=== PATIENT | male | born 1970 ===

== ENCOUNTER 2017-05-24 18:24 | Inpatient (IN) | payer OTHER ==
[2017-05-24] MEDS ORDERED: Sodium Chloride 0.9% 500 ML IV STA (18:44)
--- NOTE | 2017-05-24 18:50 | ED PDOC ---
Arrival/HPI - General Chief Complaint: Anxiety Time Seen by Provider: 05/24/17 18:26 Historian: Patient, Spouse - History of Present Illness Narrative History of Present Illness (Text): 46yoM, history of cardiac arrest in the past?, alcohol 1/5 of rum daily and last drank yesterday and wants to stop per patient and . now with chest pain generalized, but no sob/abd pain/numbness/tingling/loss of limb function/ dysuria/thoughts to harm self or others or hallucinations/travel/prior blood clots/prior cancer history. 05/24/17 18:50 Time/Duration: Other (1 day) Symptom Onset: Gradual Symptom Course: Unchanged Quality: Aching Severity Level: 4 Activities at Onset: Rest Context: Sitting Past Medical History - Provider Review Nursing Documentation Reviewed: Yes - Travel History Have you recently traveled outside [place] w/in the past 3 mons?: No - Infectious Disease Hx of Infectious Diseases: None - Psychiatric Hx Depression: Yes Hx Substance Use: No - Anesthesia Hx Anesthesia: No Family/Social History - Physician Review Nursing Documentation Reviewed: Yes Family/Social History: No Known Family HX Smoking Status: Unknown If Ever Smoked Hx Alcohol Use: Yes Frequency of alcohol use: Daily Hx Substance Use: No Allergies/Home Meds Allergies/Adverse Reactions: Allergies No Known Allergies Allergy (Verified 05/24/17 18:36) Home Medications: Home Meds Medication Instructions Recorded Confirmed Ziprasidone [Geodon] 40 mg PO DAILY 05/24/17 05/24/17 Review of Systems - Review of Systems Constitutional: Normal Eyes: Normal ENT: Normal Respiratory: Normal Cardiovascular: Chest Pain Gastrointestinal: Normal Genitourinary Male: Normal Musculoskeletal: Normal Skin: Normal Neurological: Normal Endocrine: Normal Hemo/Lymphatic: Normal Psychiatric: Anxiety Physical Exam Vital Signs Reviewed: Yes Vital Signs Temp Pulse Resp BP Pulse Ox 05/24/17 20:22 99 H 180/103 H 05/24/17 18:38 98.2 F 114 H 20 195/130 H 96 Temperature: Afebrile Blood Pressure: Hypertensive Pulse: Tachycardic Respiratory Rate: Normal Appearance: Positive for: Other (anxious) Pain Distress: None Mental Status: Positive for: Alert and Oriented X 3 - Systems Exam Head: Present: Atraumatic, Normocephalic Pupils: Present: PERRL Extroacular Muscles: Present: EOMI Conjunctiva: Present: Normal Ears: Present: Normal Mouth: Present: Moist Mucous Membranes Pharnyx: Present: Normal Nose (External): Present: Atraumatic Nose (Internal): Present: Normal Inspection Neck: Present: Normal Range of Motion Respiratory/Chest: Present: Clear to Auscultation, Good Air Exchange Cardiovascular: Present: Regular Rate and Rhythm Abdomen: No: Tenderness, Distention, Normal Bowel Sounds, Peritoneal Signs, Rebound, Guarding, McBurney's Point Tender, Rovsing's Sign Present, Hernias, Feeding Tubes, Ostomy Tubes, Mass/Organomegaly, Scars, Other Back: Present: Normal Inspection Upper Extremity: Present: Normal Inspection Lower Extremity: Present: Normal Inspection Neurological: Present: GCS=15, CN II-XII Intact, Speech Normal, Motor Func Grossly Intact Skin: Present: Warm, Normal Color Psychiatric: Present: Alert, Oriented x 3, Normal Insight, Normal Concentration , Other (anxious, mild bl hand tremor) Medical Decision Making ED Course and Treatment: 46yoM, history of cardiac arrest in the past?, alcohol 1/5 of rum daily and last drank yesterday and wants to stop per patient and . now with chest pain generalized, but no sob/abd pain/numbness/tingling/loss of limb function/ dysuria/thoughts to harm self or others or hallucinations/travel/prior blood clots/prior cancer history. 05/24/17 18:48 05/24/17 19:51 d/w Dr. Manzo who accepted pt for alcohol withdrawal, clonidine 0.1mg, librium 50mg, banana bag and can admit to telemetry. 05/24/17 20:56 d/w Dr. Manzo and can put admit in and he will fu cxr. - Lab Interpretations Lab Results: 05/24/17 18:45 05/24/17 18:45 Lab Results 05/24/17 19:45: Magnesium 1.4 L, Triglycerides 97, Cholesterol 198, LDL Cholesterol Direct 138 H, HDL Cholesterol 60, Amylase 56, Lipase 107 05/24/17 19:30: Urine Opiates Screen Negative, Urine Methadone Screen Negative, Ur Barbiturates Screen Negative, Ur Phencyclidine Scrn Negative, Ur Amphetamines Screen Negative, U Benzodiazepines Scrn Negative, U Oth Cocaine Metabols Negative, U Cannabinoids Screen Negative 05/24/17 19:30: Urine Color Yellow, Urine Appearance Sl cloudy, Urine pH 7.5, Ur Specific [place] 1.025, Urine Protein 100 H, Urine Glucose (UA) Negative, Urine Ketones Negative, Urine Blood Negative, Urine Nitrate Negative, Urine Bilirubin Negative, Urine Urobilinogen 0.2, Ur Leukocyte Esterase Negative, Urine RBC Negative, Urine WBC 1 - 3, Ur Epithelial Cells 3 - 4, Urine Bacteria Few 05/24/17 18:45: Alcohol, Quantitative < 10 05/24/17 18:45: Salicylates < 1 L, Acetaminophen < 10.0 L 05/24/17 18:45: Sodium 142, Potassium 3.2 L, Chloride 101, Carbon Dioxide 24, Anion Gap 20, BUN 10, Creatinine 0.8, Est GFR ( Amer) > 60, Est GFR (Non- Af Amer) > 60, Random Glucose 117 H, Calcium 10.5, Total Bilirubin 0.8, AST 102 H, ALT 121 H, Alkaline Phosphatase 116, Troponin I 0.02, Total Protein 8.0, Albumin 4.5, Globulin 3.5, Albumin/Globulin Ratio 1.3 05/24/17 18:45: WBC 13.2 H, RBC 4.89, Hgb 17.1, Hct 47.5, MCV 97.1, MCH 35.0, MCHC 36.0, RDW 13.7, Plt Count 256, MPV 11.4 H, Gran % 69.1 H, Lymph % (Auto) 17.0 L, [place] % (Auto) 11.4 H, Eos % (Auto) 2.2, Baso % (Auto) 0.3, Gran # 9.08 H , Lymph # 2.2, [place] # 1.5 H, Eos # 0.3, Baso # 0.04 I have reviewed the lab results: Yes - RAD Interpretation Radiology Orders: 05/24/17 18:45 CHEST TWO VIEWS (PA/LAT) [RAD] Stat 05/24/17 20:09 ABDOMEN COMPLETE [US] Routine - EKG Interpretation Interpreted by ED Physician: Yes (sinus tachycardia, flipped t waves avr.) Type: 12 lead EKG - Medication Orders Current Medication Orders: Aspirin (Ecotrin) 81 mg PO DAILY MICH Chlordiazepoxide (Librium) 25 mg PO Q6 MICH PRN Reason: Taper Stop: 05/28/17 19:59 Chlordiazepoxide (Librium) 25 mg PO Q4H PRN PRN Reason: Withdrawl Clonidine HCl (Catapres) 0.1 mg PO Q4H PRN PRN Reason: Symptoms of alcohol withdrawl Haloperidol Lactate (Haldol) 2 mg IM Q8H PRN PRN Reason: Agitation Multivitamins/Vitamin C 10 ml/Thiamine HCl 100 mg/ Folic Acid 1 mg/ Sodium Chloride 1,011.2 mls @ 100 mls/hr IV ONCE ONE Stop: 05/25/17 05:55 Last Admin: 05/24/17 20:23 Dose: 100 mls/hr eMAR Start Stop Document 05/24/17 20:23 IT (Rec: 05/24/17 20:23 IT [id number]) Intravenous Solution Start Date 05/24/17 Start Time 20:23 Potassium Chloride (Potassium Chloride 10 Meq/100 Ml) 10 meq in 100 mls @ 50 mls/hr IVPB ONCE ONE Stop: 05/24/17 21:57 Magnesium Sulfate 2 gm/ Sodium (Chloride) 104 mls @ 102 mls/hr IVPB Q3H MICH Stop: 05/25/17 00:47 Levalbuterol HCl (Xopenex) 0.63 mg IH Q3ANBHS MICH Lorazepam (Ativan) 1 mg IVP Q4H PRN PRN Reason: Symptoms of alcohol withdrawl Metoprolol Tartrate (Lopressor) 25 mg PO BID MICH Multivitamins/Minerals (Therapeutic-M Tab) 1 tab PO DAILY [facility] Nicotine (Nicoderm Cq) 1 patch TD DAILY MICH Pantoprazole Sodium (Protonix Inj) 40 mg IVP Q12H MICH Last Admin: 05/24/17 20:23 Dose: 40 mg IVP Administration Document 05/24/17 20:23 IT (Rec: 05/24/17 20:23 IT [id number]) Charges for Administration # of IVP Administrations 1 Thiamine HCl (Vitamin B1 Tab) 100 mg PO DAILY MICH Trazodone HCl (Desyrel) 50 mg PO HS PRN PRN Reason: Insomnia Discontinued Medications Aspirin (Aspirin Chewable) 324 mg PO STAT STA Stop: 05/24/17 18:51 Last Admin: 05/24/17 19:01 Dose: Chlordiazepoxide (Librium) 50 mg PO STAT STA PRN Reason: Protocol Stop: 05/24/17 19:51 Last Admin: 05/24/17 20:23 Dose: 50 mg Clonidine HCl (Catapres) 0.1 mg PO STAT STA Stop: 05/24/17 19:51 Last Admin: 05/24/17 20:22 Dose: 0.1 mg MAR Pulse and Blood Pressure Document 05/24/17 20:22 IT (Rec: 05/24/17 20:23 IT [id number]) Pulse Pulse Rate (60-90) 99 Blood Pressure Blood Pressure (100/60-150/90) 180/103 Clonidine HCl (Catapres) 0.1 mg PO Q4H PRN PRN Reason: Symptoms of alcohol withdrawl Sodium Chloride (Sodium Chloride 0.9%) 500 mls @ 1,000 mls/hr IV .Q30M STA Stop: 05/24/17 19:13 Last Admin: 05/24/17 19:01 Dose: 1,000 mls/hr eMAR Start Stop Document 05/24/17 19:01 GMI (Rec: 05/24/17 19:01 [facility] [id number]) Intravenous Solution Start Date 05/24/17 Start Time 19:01 End Date 05/24/17 End time 19:01 Total Infusion Time 0 Lorazepam (Ativan) 2 mg IVP STAT STA Stop: 05/24/17 18:45 Last Admin: 05/24/17 19:01 Dose: 2 mg IVP Administration Document 05/24/17 19:01 GMI (Rec: 05/24/17 19:01 [facility] [id number]) Charges for Administration # of IVP Administrations 1 Potassium Chloride (K-Dur 20 Meq Er Tab) 40 meq PO STAT STA Stop: 05/24/17 19:43 Last Admin: 05/24/17 20:23 Dose: 40 meq Disposition/Present on Arrival - Present on Arrival Any Indicators Present on Arrival: No History of DVT/PE: No History of Uncontrolled Diabetes: No Urinary Catheter: No History of Decub. Ulcer: No History Surgical Site Infection Following: None - Disposition Have Diagnosis and Disposition been Completed?: Yes Diagnosis: Alcohol withdrawal, Chest pain Disposition: HOSPITALIZED Disposition Time: 20:57 Patient Plan: Admission, Telemetry Condition: STABLE Discharge Instructions (ExitCare): Chest Pain (ED) Forms: [facility] (Khmer)
[2017-05-24 19:12] LABS: BASO # 0.04 K/mm3 (0.0-2.0); BASO % 0.3 % (0.0-3.0); EOS # 0.3 (0.0-0.7); EOS % 2.2 % (1.5-5.0); GRAN # 9.08 (1.4-6.5); GRAN % 69.1 % (50.0-68.0); HEMOGLOBIN 17.1 g/dL (14.0-18.0); LYMPH # 2.2 (1.2-3.4); MEAN CELL VOLUME 97.1 fl (80.0-105.0); MEAN PLATELET VOLUME 11.4 fl (7.0-11.0); MONO # 1.5 (0.1-0.6); MONO % 11.4 % (1.0-6.0); RBC 4.89 10^6/uL (3.5-6.1); RED CELL DISTRIBUTION WIDTH 13.7 % (11.5-14.5); WHITE BLOOD COUNT 13.2 10^3/ul (4.5-11.0)
[2017-05-24 19:24] LABS: ALB/GLOB RATIO 1.3 (1.1-1.8); ALBUMIN 4.5 g/dL (3.0-4.8); ALT/SGPT 121 U/L (7-56); AST/SGOT 102 U/L (17-59); BLOOD UREA NITROGEN 10 mg/dL (7-21); CALCIUM 10.5 mg/dL (8.4-10.5); GFR AFRICAN-AMERICAN > 60; GFR NON-AFRICAN AMERICAN > 60
[2017-05-24 19:27] LABS: ACETAMINOPHEN < 10.0 ug/ml (10.0-20.0); SALICYLATE < 1 mg/dL (2.0-20.0)
[2017-05-24 19:36] LABS: TROPONIN I 0.02 ng/mL
[2017-05-24] MEDS ORDERED: Potassium Chloride 20 mEq ER Tab PO STA (19:42)
[2017-05-24] MEDS ORDERED: Multivitamin (MVI) 10 ML, Thiamine 100 MG, Folic Acid 1 MG in Sodium Chloride 0.9% 1,00... IV ONE (19:49)
[2017-05-24 19:54] LABS: PH,URINE 7.5 (4.7-8.0); URINE BILIRUBIN NEGATIVE (NEGATIVE); URINE BLOOD NEGATIVE (NEGATIVE); URINE GLUCOSE (UA) NEGATIVE (NEGATIVE); URINE LEUKOCYTE ESTERASE NEGATIVE Leu/uL (NEGATIVE); URINE NITRATE NEGATIVE (NEGATIVE); URINE PROTEIN 100 mg/dL (<30 mg/dL); URINE UROBILINOGEN 0.2 E.U./dL (<1 E.U./dL)
[2017-05-24 19:57] LABS: URINE APPEARANCE SL CLOUDY (CLEAR); URINE COLOR YELLOW (YELLOW)
[2017-05-24 20:11] LABS: BARBITURATES, UR NEGATIVE (NEGATIVE); BENZODIAZEPINES, UR NEGATIVE (NEGATIVE); OPIATES, UR NEGATIVE (NEGATIVE); PHENCYCLIDINE, UR NEGATIVE (NEGATIVE)
[2017-05-24 20:38] LABS: URINE BACTERIA FEW (NEG); URINE RBC NEGATIVE /hpf (0-2)
[2017-05-24 20:40] LABS: MAGNESIUM 1.4 mg/dL (1.7-2.2)
[2017-05-24 20:59] LABS: FREE T4 1.15 ng/dL (0.78-2.19)
[2017-05-24 21:50] LABS: TROPONIN I 0.03 ng/mL
[2017-05-24 22:41] VITALS: BMI 37.8
[2017-05-25] MEDS: Magnesium Sulfate 2 GM in Sodium Chloride 0.9% 100 ML IVPB SCH ×2 (00:41→02:58)
[2017-05-25] MEDS: Levalbuterol 0.63 MG/3 ML Inhal Soln UD IH SCH ×6 (00:41→20:12)
[2017-05-25 00:52] LABS: TROPONIN I 0.02 ng/mL
[2017-05-25 05:46] LABS: HEMOGLOBIN 15.2 g/dL (14.0-18.0); MEAN CELL VOLUME 98.2 fl (80.0-105.0); MEAN CORPUSCULAR HEMOGLOBIN 33.8 pg (25.0-35.0); MEAN CORPUSCULAR HGB CONC 34.4 g/dl (31.0-37.0); RBC 4.5 10^6/uL (3.5-6.1); RED CELL DISTRIBUTION WIDTH 13.8 % (11.5-14.5); WHITE BLOOD COUNT 9.9 10^3/ul (4.5-11.0)
[2017-05-25 06:18] LABS: LDL CHOLESTEROL 107 mg/dL (0-129); TROPONIN I < 0.01 ng/mL
[2017-05-25 06:32] LABS: ALB/GLOB RATIO 1.2 (1.1-1.8); ALBUMIN 3.7 g/dL (3.0-4.8); ALT/SGPT 99 U/L (7-56); AST/SGOT 76 U/L (17-59); BILIRUBIN,DIRECT 0.5 mg/dL (0.0-0.4); BLOOD UREA NITROGEN 9 mg/dL (7-21); CALCIUM 8.9 mg/dL (8.4-10.5); GFR AFRICAN-AMERICAN > 60; GFR NON-AFRICAN AMERICAN > 60; HDL CHOLESTEROL 46 mg/dL (29-60); MAGNESIUM 2.3 mg/dL (1.7-2.2)
[2017-05-25] MEDS ORDERED: Potassium Chloride 20 mEq ER Tab PO STA (06:35)
--- NOTE | 2017-05-25 08:23 | HP ---
HISTORY OF PRESENT ILLNESS: The patient is a 46-year-old obese male presented to the emergency room complaining of chest pain, anxiety, and tremulousness. The patient stopped drinking 24 hours ago. The patient states that he has been drinking more than a quart everyday for the last 6 months and has been drinking significantly more in the last few days and the patient has been increasingly drinking because of worsening anxiety and depression and the patient has stopped drinking a day or 24 hours ago. The patient also complains of chest pain and palpitations. REVIEW OF SYSTEMS: A 13-system review was positive for anxiety. Positive for drinking alcohol daily for the last 6 months and wants to stop drinking, but complaining of chest pain and anxiety. CODE STATUS: Full code. LIVING WILL ADVANCE DIRECTIVE: None. ALLERGIES: NONE. HOME MEDICATIONS: Geodon 40 mg daily. SOCIAL HISTORY: Positive for smoking and positive for active alcohol drinking everyday significant amount for the last 6 months, stopped a day ago. FAMILY HISTORY: Not available. OCCUPATIONAL HISTORY: Not working. PAST MEDICAL AND SURGICAL HISTORY: The patient stated that 10-15 years ago he had history of cardiac arrest, does not remember the details, history of anxiety, depression, history of alcohol use, history of nicotine and alcohol dependence, and history of gastric sleeve surgery. PHYSICAL EXAMINATION: GENERAL: The patient is seen in stretcher number 5 in the emergency room. VITAL SIGNS: T-max 98.2. The patient's is at bedside. Telemetry shows heart rate sinus tachycardia 114, blood pressure 195/130, 220/134, respirations 20, and O2 saturation 96%. Height is 5 feet 5 inches, weight 227 pounds, and BMI of 27. HEAD: Normocephalic, atraumatic. HEENT: Shows pink conjunctivae. Anicteric sclerae. No oropharyngeal lesion. No visible jugular venous distention. No audible carotid bruit. CHEST: Symmetrical. LUNGS: Shows occasional rhonchi in upper lung cook. CARDIOVASCULAR: S1 and S2, tachycardic rhythm. No appreciable murmur, gallop, or rub. ABDOMEN: Protuberant and obese. Positive surgical scar of gastric sleeve. Questionable mild hepatomegaly palpable. Mild epigastric periumbilical tenderness. No guarding. No rigidity. No rebound tenderness. GENITALIA: Male. RECTAL: Deferred. EXTREMITIES: Lower extremity shows no pitting, no calf numbness, no Homans' sign. No clubbing, no cyanosis. Upper extremity shows positive tremulousness and shakiness. VASCULAR: Palpable pulses. NEUROLOGIC: The patient is alert, awake, responsive, oriented x3. Cranial nerves II through XII grossly intact. Gait examination not tested. DIAGNOSTICS: WBC 13.2, hemoglobin/hematocrit 17.1/47.5, and platelet 256. Sodium 142, potassium 3.2, chloride 101, CO2 24, anion gap 20, BUN 10, creatinine 0.8, GFR greater than 60, glucose 117, AST 102, and ALT 121. Urine pH 7.5, specific gravity 1.025, urine protein 100. Urine salicylate less than 1. Urine drug screen is negative. Acetaminophen negative. Alcohol level less than 10. The patient's EKG was reviewed shows sinus rhythm, sinus tachycardia, nonspecific ST changes. No previous EKG available for comparison. Chest x-ray results pending, not done yet. TREATMENT IN THE EMERGENCY ROOM: The patient was seen in the emergency room by the ER physician Dr. Paulino. The patient was given aspirin 324, Ativan 2 mg IV was given, banana bag was started, and clonidine 0.1 mg was given. The patient was given p.o. supplementation of the potassium and Librium 50 mg was given. The patient was given IV fluid bolus. The patient was advised to be admitted, which he agreed to. The patient states and his states that he wants to stop drinking and needs help and seeking help. The patient's other labs, which are ordered, which are pending including ammonia, amylase, lipase, hepatitis panel, magnesium, and thyroid panel pending. Chest x-ray results pending. IMPRESSION: A 46-year-old male with history of gastric sleeve, history of questionable cardiac arrest 15 years ago, history of longstanding alcohol dependence and addiction, history of nicotine addiction dependence, history of anxiety and depression comes in with more than 6 months of continuous alcohol binging, which stopped a day ago: 1. Alcohol withdrawal and impending delirium tremens. 2. Alcohol withdrawal disorder. 3. Alcohol use disorder. 4. Chest pain, probably atypical musculoskeletal. 5. Questionable gastroesophageal reflux and alcoholic gastritis. 6. Sinus tachycardia. 7. Uncontrolled hypertension. 8. Leukocytosis with granulocytosis etiology undetermined. 9. Hypokalemia. 10. Transaminitis probably alcohol related. 11. Proteinuria. 12. Sinus tachycardia. 13. Chest pain, etiology unclear. 14. Morbid obesity, status post gastric sleeve. PLAN: At this time, the patient will be admitted to Telemetry. The patient has been ordered an ammonia level, amylase, lipase, thyroid panel, hepatitis panel, lipid panel, and magnesium has been ordered. Repeat CMP, LFTs, and magnesium. Repeat CPK and troponin ordered. HIV ordered. Repeat CBC ordered. CONSULTATIONS: 1. Cardiology. 2. Psychiatry. CURRENT MEDICATIONS: The patient received aspirin 325 in the ER and Ativan 2 mg IV was given. The patient was put on Ativan 1 mg IV q.4 hours. The patient is started on banana bag. The patient was started on clonidine 0.1 mg p.o. q.4 hours p.r.n., Desyrel 50 mg p.o. at bedtime, Ecotrin 81 mg daily, and Haldol 2 mg IM q.8 hours p.r.n. The patient is given potassium supplementation. The patient is given Librium 25 mg p.o. q.4 hours p.r.n. The patient is given Librium tapering protocol, Lopressor 25 twice a day, nicotine patch 21 mg daily. The patient is given potassium riders IV and p.o. potassium. The patient is started on IV proton pump inhibitor. The patient is started multivitamin, thiamine 100 mg p.o. daily, and Xopenex 0.63 mg nebulizer q.6 hours. Chest x-ray PA and lateral ordered. Ultrasound of the abdomen ordered. Repeat EKG ordered. Echo with Doppler ordered. The patient is placed on heart healthy diet. The patient is put on alcohol withdrawal CIWA protocol. Aspiration precautions ordered. Neuro checks ordered. Out of bed ordered. Seizure precautions ordered. The patient is evaluated in the ER. The patient's need for hospitalization, need for patient's diagnostic test results, recommendation by the ER physician were reinforced. The patient and the patient's was advised and counseled about cessation of alcohol and smoking. Dictated and electronically signed, not read. Gordy Manzo MD
[2017-05-25] MEDS: Potassium Chloride 40 mEq/30 ml LIQ UD PO SCH ×2 (09:02→09:15)
--- NOTE | 2017-05-25 09:45 | CARD ---
APPROVED REPORT EKG Measurement Heart [id number] <Conclusion> Sinus tachycardia Possible Left atrial enlargement Leftward axis RVCD NSSTW changes
--- NOTE | 2017-05-25 10:05 | US ---
HISTORY: TRANSAMINITIS COMPARISON: None. TECHNIQUE: Grayscale imaging was performed. FINDINGS: LIVER: Measures 20.1 cm. There is diffuse increased echogenicity of the liver parenchyma. There is a 0.9 x 1.2 x 1.1 cm simple cyst in the right lobe. No solid mass. No intrahepatic bile duct dilatation. GALLBLADDER: There are no gallstones, wall thickening or pericholecystic fluid. The sonographic Farah's sign is negative COMMON BILE DUCT: Measures 4.5 mm. No stones. No dilatation. PANCREAS: Unremarkable as visualized. No mass. No ductal dilatation. RIGHT KIDNEY: Measures 13.7cm. Normal echogenicity. No calculus, mass, or hydronephrosis. LEFT KIDNEY: Measures 11 pointcm. Normal echogenicity. No calculus, mass, or hydronephrosis. SPLEEN: Normal in size and contour. No mass. AORTA: No aneurysmal dilatation. IVC: Unremarkable. OTHER FINDINGS: None. IMPRESSION: Mild hepatomegaly. Diffuse increased echogenicity in the liver may reflect hepatic steatosis however parenchymal infectious/ inflammatory etiologies cannot be entirely excluded. Clinical and laboratory correlation is advised. 1.2 cm simple cyst in the right hepatic lobe.
[2017-05-25] MEDS: Multivitamin With Minerals Tab PO SCH (11:12)
[2017-05-25 11:26] LABS: HEPATITIS B SURFACE AG NEGATIVE (NEGATIVE)
[2017-05-25 11:32] LABS: HEPATITIS A IGM NEGATIVE (NEGATIVE); HEPATITIS B CORE AB Negative (NEGATIVE)
[2017-05-25 12:57] LABS: HEPATITIS C ANTIBODY Negative (NEGATIVE)
--- NOTE | 2017-05-25 14:20 | PN ---
DATE: 05/25/2017 SUBJECTIVE: The patient is seen in ER bed 5. The patient is lying in the bed watching TV. According to the nurses' notes, the patient had no adverse events documented. The patient is still awaiting assignments. OBJECTIVE: VITAL SIGNS: T-max 98.2, heart rate is 86-101 and 90-100, blood pressure is ranging from the last 24 hours 195/130, 180/103, 135/90, 150/90, 153/97, 148/77, 128/81, and 139/100, respirations 16-20, O2 sat 98-100%. HEENT: Head: Normocephalic, atraumatic. HEENT examination shows pink conjunctivae. Anicteric sclerae. No oropharyngeal lesion. NECK: No neck rigidity. Neck is short. CHEST: Kyphosis. LUNGS: Shows occasional rhonchi upper lung cook. CARDIOVASCULAR: S1 and S2, regular rhythm. ABDOMEN: Obese. Positive bowel sounds. Protuberant. No hepatosplenomegaly noted. GENITALIA: Male. RECTAL: Deferred. MUSCULOSKELETAL: Shows body mass index of 38. NEUROLOGIC: The patient is alert, awake, and oriented x3. Cranial nerves II-XII grossly intact. Motor strength is 5/5. Positive asterixis and upper extremity tremors and tremulous noted. Gait examination not tested. DIAGNOSTIC STUDIES: 05/25/2017, WBC 9.9, hemoglobin and hematocrit are 15.2 and 44.2, and platelets 217. Sodium is 139, potassium is 3.2, chloride is 104, CO2 is 25, anion gap 13, BUN is 9, creatinine is 0.8, GFR greater than 60, glucose is 107, calcium is 8.9, magnesium is up to 2.3, total bilirubin is 1.2, direct bilirubin is 0.5, AST is down to 76, ALT is down to 99, and alkaline phosphatase is 77. Troponin all sets are negative. LFTs are negative.. EKG from 05/25/2017 shows normal sinus rhythm, questionable left axis deviation, no ST elevation depression noted. Ultrasound of the abdomen noted. Echo pending. IMPRESSION: 1. Chest pain, etiology undetermined. 2. Active alcohol dependence. 3. Acute alcohol withdrawal. 4. Delirium tremens. 5. Hypertension. 6. Tachycardia. 7. Leukocytosis with granulocytosis (resolved). 8. Hypokalemia. 9. Hypomagnesemia. 10. Transaminitis. 11. Hypercholesterolemia with elevated LDL. 12. Proteinuria. 13. Hepatomegaly with 20 cm liver size with diffuse increased echogenicity with right hepatic lobe cyst. 14. Hepatomegaly with hepatic steatosis. 15. Right hepatic 1.2-cm simple cyst. 16. Questionable left axis deviation. 17. Nicotine and alcohol dependence and addiction. 18. History of anxiety and depression. 19. History of cardiac arrest as per the patient. 20. Fatty liver. PLAN: 1. At this time, the patient has been downgraded to remote tele. CURRENT MEDICATIONS: 1. Actigall 300 mg twice a day. 2. Ativan 1 mg IV q.4 hours p.r.n. 3. The patient is on banana bag. 4. Clonidine 0.1 mg p.o. q.4 hours p.r.n. 5. Desyrel. 6. Trazodone 50 mg at bedtime p.r.n. 7. Aspirin 81 mg daily. 8. Haldol 2 mg IM q.8 hours p.r.n. 9. The patient is given potassium supplementation x2 doses. The patient has been ordered Librium protocol tapering protocol. The patient is on Lopressor 25 twice a day, nicotine patch 21 mg daily. The patient has been ordered Protonix 40 daily. The patient is on multivitamin 1 tablet daily, thiamine 100 mg p.o. daily, and Xopenex nebulizer 0.63 mg every 6 hours. The patient is ordered repeat EKG, echo with Doppler pending. Heart-healthy diet. Alcohol withdrawal protocol pending. Out of bed orders. . The patient is awaiting Cardiology and Psychiatry evaluation. At present, the patient will be continued on the above therapeutic intervention till the patient's stabilization and we will await for recommendations from Cardiology and Psychiatry. The patient has been again counseled about cessation of smoking and alcohol, which he acknowledged understanding. All questions and concerned answered. Gordy Manzo MD
--- NOTE | 2017-05-25 14:58 | CP.PCM.PN ---
Subjective - Date & Time of Evaluation Date of Evaluation: 05/25/17 Time of Evaluation: 14:43 - Subjective Subjective: Medicine Progress Note: Patient seen and assessed at bedside in the ED. No acute events noted overnight by nursing staff. Patient states that he is disappointed in himself for relapsing into alcohol and tobacco use but otherwise has no complaints. He denies fever, chills, headache, changes in his vision, rhinorrhea, sore throat, chest pain, palpitations, syncope, dizziness, SOB, cough, wheezing, abdominal pain, N/V, diarrhea, constipation, burning/pain with urination, skin changes or any numbness/tingling/weakness of any extremity. Objective - Vital Signs/Intake and Output Vital Signs (last 24 hours): Temp Pulse Resp BP Pulse Ox 98 F 92 H 18 160/100 H 100 05/25/17 07:20 05/25/17 12:40 05/25/17 12:40 05/25/17 12:40 05/25/17 12:40 - Medications Medications: Current Medications Aspirin (Ecotrin) 81 mg PO DAILY [facility] Last Admin: 05/25/17 10:53 Dose: 81 mg Chlordiazepoxide (Librium) 25 mg PO Q6 [facility] PRN Reason: Taper Stop: 05/28/17 19:59 Last Admin: 05/25/17 12:49 Dose: 25 mg Chlordiazepoxide (Librium) 25 mg PO Q4H PRN PRN Reason: Withdrawl Clonidine HCl (Catapres) 0.1 mg PO Q4H PRN PRN Reason: Symptoms of alcohol withdrawl Haloperidol Lactate (Haldol) 2 mg IM Q8H PRN PRN Reason: Agitation Levalbuterol HCl (Xopenex) 0.63 mg IH [id number] [facility] Last Admin: 05/25/17 08:00 Dose: Not Given Lorazepam (Ativan) 1 mg IVP Q4H PRN PRN Reason: Symptoms of alcohol withdrawl Metoprolol Tartrate (Lopressor) 25 mg PO BID [facility] Last Admin: 05/25/17 10:53 Dose: 25 mg Multivitamins/Minerals (Therapeutic-M Tab) 1 tab PO DAILY [facility] Last Admin: 05/25/17 11:12 Dose: 1 tab Nicotine (Nicoderm Cq) 1 patch TD DAILY [facility] Last Admin: 05/25/17 11:12 Dose: 1 patch Pantoprazole Sodium (Protonix Inj) 40 mg IVP Q12H [facility] Last Admin: 05/25/17 09:15 Dose: 40 mg Thiamine HCl (Vitamin B1 Tab) 100 mg PO DAILY [facility] Last Admin: 05/25/17 11:12 Dose: 100 mg Trazodone HCl (Desyrel) 50 mg PO HS PRN PRN Reason: Insomnia Last Admin: 05/25/17 02:09 Dose: 50 mg Ursodiol (Actigall) 300 mg PO BID [facility] Last Admin: 05/25/17 12:38 Dose: 300 mg - Labs Labs: 05/25/17 05:20 05/25/17 05:20 - Constitutional Appears: Non-toxic, No Acute Distress - Head Exam Head Exam: ATRAUMATIC, NORMAL INSPECTION, NORMOCEPHALIC - Eye Exam Eye Exam: EOMI, Normal appearance, PERRL. absent: Conjunctival injection, Nystagmus, Periorbital swelling, Periorbital tenderness, Scleral icterus Pupil Exam: NORMAL ACCOMODATION, PERRL - ENT Exam ENT Exam: Mucous Membranes Dry, Normal External Ear Exam, Normal Oropharynx. absent: Mucous Membranes Moist, Normal Exam - Neck Exam Neck Exam: Full ROM, Normal Inspection. absent: Lymphadenopathy - Respiratory Exam Respiratory Exam: Clear to Ausculation Bilateral, NORMAL BREATHING PATTERN. absent: Accessory Muscle Use, Chest Wall Tenderness, Decreased Breath Sounds, Prolonged Expiratory Phase, Rales, Rhonchi, Wheezes, Respiratory Distress, Stridor - Cardiovascular Exam Cardiovascular Exam: Tachycardia, REGULAR RHYTHM, +S1, +S2. absent: Bradycardia , Clicks, Diastolic murmur, Gallop, Irregular Rhythm, JVD, RRR, Rubs, +S4, Murmur - GI/Abdominal Exam GI & Abdominal Exam: Soft, Normal Bowel Sounds. absent: Bruit, Distended, Firm , Guarding, Rigid, Tenderness, Diminished Bowel Sounds, Hernia, Hyperactive Bowel Sounds, Hypoactive Bowel Sounds, Organomegaly, Pulsatile Mass, Rebound, Mass - Extremities Exam Extremities Exam: Full ROM, Normal Capillary Refill, Normal Inspection. absent : Calf Tenderness, Joint Swelling, Pedal Edema, Tenderness - Back Exam Back Exam: Full ROM, NORMAL INSPECTION. absent: CVA tenderness (L), CVA tenderness (R), muscle spasm, paraspinal tenderness, rash noted, tenderness, vertebral tenderness - Neurological Exam Neurological Exam: Alert, Awake, CN II-XII Intact, Oriented x3 Additional comments: Tremulous - Psychiatric Exam Psychiatric exam: Normal Affect, Normal Mood - Skin Skin Exam: Dry, Intact, Normal Color, Warm Assessment and Plan - Assessment and Plan (Free Text) Assessment: 46 year old male with a past medical history significant for previous AK, alcohol abuse/withdrawal and tobacco abuse/withdrawal who presented with chest pain and found to be in alcohol withdrawal. Patient has had three serial troponins result as negative and had no active disease on a chest x-ray. Plan: 1. Chest Pain -Chest X-Ray showing no active disease -EKG showing sinus tachycardia, possible LAE, LAD, RVCD and NSSTW changes -Three serial troponins negative -Daily EKG's -Echo pending -Xopenex [id number] -Heart Healthy Diet -Cardiology consulted, all recommendations appreciated 2. Alcohol Withdrawal -Patient reports last drink approximately 36 hours ago -Librium 25mg PO Q6 [facility] and Q4H PRN -Ativan 1mg IVP Q4H PRN -Haldol 2mg IM Q8H PRN for agitation -Clonidine 0.1mg PO Q4H PRN -Folic Acid/Thiamine/MV supplementation daily -Serial CIWA Assessments -Aspiration and Seizure precautions in place -Patient education on cessation benefits and risks of continuous use provided -Psych consulted, all recommendations appreciated 3. Transaminitis -Abdominal U/S showing hepatic steatosis and a 1.2cm right hepatic lobe simple cyst -Hepatitis panel, acetaminophen, UDS and alcohol level all negative -Continue Actigall 4. History of CAD s/p AK -Continue home ASA and Metoprolol 5. History of Insomnia -Continue Trazadone HS PRN 6. History of Tobacco Abuse -Nicotine patch daily -Patient education on cessation benefits and risks of continuous use provided GI Prophylaxis: Protonix DVT Prophylaxis: SCD's Patient seen and case discussed with attending, Dr. Manzo.
[2017-05-26] MEDS: Levalbuterol 0.63 MG/3 ML Inhal Soln UD IH SCH ×4 (01:45→20:23)
[2017-05-26 06:27] LABS: MEAN CELL VOLUME 99.1 fl (80.0-105.0); MEAN CORPUSCULAR HEMOGLOBIN 33.6 pg (25.0-35.0); MEAN CORPUSCULAR HGB CONC 33.9 g/dl (31.0-37.0); MEAN PLATELET VOLUME 11.5 fl (7.0-11.0); RBC 4.46 10^6/uL (3.5-6.1); RED CELL DISTRIBUTION WIDTH 13.9 % (11.5-14.5); WHITE BLOOD COUNT 9.1 10^3/ul (4.5-11.0)
[2017-05-26 07:07] LABS: ALB/GLOB RATIO 1.2 (1.1-1.8); ALBUMIN 3.7 g/dL (3.0-4.8); ALT/SGPT 134 U/L (7-56); AST/SGOT 207 U/L (17-59); BILIRUBIN,DIRECT 0.5 mg/dL (0.0-0.4); BLOOD UREA NITROGEN 12 mg/dL (7-21); CALCIUM 8.9 mg/dL (8.4-10.5); GFR AFRICAN-AMERICAN > 60; GFR NON-AFRICAN AMERICAN > 60; MAGNESIUM 1.9 mg/dL (1.7-2.2)
[2017-05-26 08:47] VITALS: RESP 20
[2017-05-26] MEDS: Multivitamin With Minerals Tab PO SCH (09:15)
--- NOTE | 2017-05-26 09:30 | CP.PCM.PN ---
Subjective - Date & Time of Evaluation Date of Evaluation: 05/26/17 Time of Evaluation: 07:20 - Subjective Subjective: IM Progress Note for Dr. Manzo service Patient seen and examined at bedside. No acute events overnight, but this AM, nursing reports BP 150's/110's despite his scheduled AM clonidine. Patient denies acute complaints, including headache, vision changes, tremors, chest pain , shortness of breath, nausea, or emesis. Objective - Vital Signs/Intake and Output Vital Signs (last 24 hours): Temp Pulse Resp BP Pulse Ox 98 F 83 20 152/112 H 98 05/26/17 08:43 05/26/17 09:16 05/26/17 08:43 05/26/17 09:16 05/26/17 08:43 Intake and Output: 05/26/17 05/26/17 06:59 18:59 Intake Total 780 120 Balance 780 120 - Medications Medications: Current Medications Aspirin (Ecotrin) 81 mg PO DAILY [facility] Last Admin: 05/26/17 09:16 Dose: 81 mg Chlordiazepoxide (Librium) 25 mg PO TID [facility] PRN Reason: Taper Stop: 05/28/17 19:59 Last Admin: 05/26/17 09:16 Dose: 25 mg Chlordiazepoxide (Librium) 25 mg PO Q4H PRN PRN Reason: Withdrawl Clonidine HCl (Catapres) 0.1 mg PO Q4H PRN PRN Reason: Symptoms of alcohol withdrawl Last Admin: 05/26/17 04:36 Dose: 0.1 mg Haloperidol Lactate (Haldol) 2 mg IM Q8H PRN PRN Reason: Agitation Levalbuterol HCl (Xopenex) 0.63 mg IH [id number] [facility] Last Admin: 05/26/17 08:07 Dose: Not Given Lorazepam (Ativan) 1 mg IVP Q4H PRN PRN Reason: Symptoms of alcohol withdrawl Last Admin: 05/25/17 23:48 Dose: 1 mg Losartan Potassium (Cozaar) 50 mg PO DAILY [facility] Last Admin: 05/26/17 09:16 Dose: 50 mg Metoprolol Tartrate (Lopressor) 25 mg PO BID [facility] Last Admin: 05/26/17 09:15 Dose: 25 mg Multivitamins/Minerals (Therapeutic-M Tab) 1 tab PO DAILY [facility] Last Admin: 05/26/17 09:15 Dose: 1 tab Nicotine (Nicoderm Cq) 1 patch TD DAILY [facility] Last Admin: 05/26/17 09:15 Dose: 1 patch Pantoprazole Sodium (Protonix Inj) 40 mg IVP Q12H [facility] Last Admin: 05/26/17 09:14 Dose: 40 mg Thiamine HCl (Vitamin B1 Tab) 100 mg PO DAILY [facility] Last Admin: 05/26/17 09:15 Dose: 100 mg Trazodone HCl (Desyrel) 50 mg PO HS PRN PRN Reason: Insomnia Last Admin: 05/25/17 23:48 Dose: 50 mg Ursodiol (Actigall) 300 mg PO BID [facility] Last Admin: 05/26/17 09:16 Dose: 300 mg - Labs Labs: 05/26/17 05:30 05/26/17 05:30 - Constitutional Appears: Non-toxic, No Acute Distress - Head Exam Head Exam: ATRAUMATIC, NORMAL INSPECTION, NORMOCEPHALIC - Eye Exam Eye Exam: EOMI, Normal appearance. absent: Conjunctival injection, Scleral icterus Pupil Exam: absent: Irregular, Unequal - ENT Exam ENT Exam: Mucous Membranes Moist, Normal Exam - Neck Exam Neck Exam: Normal Inspection - Respiratory Exam Respiratory Exam: Clear to Ausculation Bilateral, NORMAL BREATHING PATTERN. absent: Accessory Muscle Use, Chest Wall Tenderness, Decreased Breath Sounds, Rales, Rhonchi, Wheezes - Cardiovascular Exam Cardiovascular Exam: REGULAR RHYTHM, RRR, +S1, +S2. absent: Bradycardia, Tachycardia, Irregular Rhythm, JVD, +S4 - GI/Abdominal Exam GI & Abdominal Exam: Soft, Normal Bowel Sounds. absent: Distended, Firm, Guarding, Rigid, Tenderness, Diminished Bowel Sounds, Hyperactive Bowel Sounds, Hypoactive Bowel Sounds - Rectal Exam Rectal Exam: Deferred - Extremities Exam Extremities Exam: Full ROM, Normal Capillary Refill, Normal Inspection. absent : Calf Tenderness, Joint Swelling, Pedal Edema, Tenderness - Neurological Exam Neurological Exam: Alert, Awake, Oriented x3 Additional comments: moving all extremities spontaneously, rolling from side to side in bed without overt difficulty motor grossly intact and equal bilaterally - Psychiatric Exam Psychiatric exam: Normal Affect, Normal Mood - Skin Skin Exam: Dry, Intact, Normal Color, Warm Assessment and Plan - Assessment and Plan (Free Text) Assessment: This is a 46 yo M with PMH significant for previous IA, alcohol abuse/ withdrawal, and tobacco abuse/withdrawal who presented with chest pain and was found to be in alcohol withdrawal. He was admitted for ACS rule out and management of alcohol withdrawal. Plan: 1) Chest Pain - resolved -Chest X-Ray showing no active disease -trops negative x3, EKG today NSR without acute segment abnormalities -Echo pending -Xopenex [id number] -Heart Healthy Diet -Cardiology consulted, all recommendations appreciated 2) Alcohol Withdrawal -Patient reports last drink approximately 36 hours prior to presentation -Librium 25mg PO TID [facility] and Q4H PRN, on librium taper; holding for now due to worsened LFTs today -Ativan 1mg IVP Q4H PRN, added 1mg PO q6 TID due to holding librium 2/2 elevated LFTs -Haldol 2mg IM Q8H PRN for agitation -Clonidine 0.1mg PO Q4H PRN for HTN -Folic Acid/Thiamine/MV supplementation daily -Serial CIWA Assessments -Aspiration and Seizure precautions in place -Patient education on cessation benefits and risks of continuous use provided -Psych consulted, all recommendations appreciated 3) Transaminitis -Abdominal U/S showing hepatic steatosis and a 1.2cm right hepatic lobe simple cyst -Hepatitis panel, acetaminophen, UDS and alcohol level all negative -Continue Actigall -worsened LFTs today, AST 207 (76), ALT 134 (99), Tbili 1.3 (1.2); Dbili unchanged at 0.5 4) History of CAD s/p [place] -Continue home ASA and Metoprolol 5) History of Insomnia -Continue Trazadone HS PRN 6) History of Tobacco Abuse -Nicotine patch daily -Patient education on cessation benefits and risks of continuous use provided Dispo: Remote tele, continuing CIWA for alcohol withdrawal, holding librium and starting on scheduled ativan due to LFTs, pending Echo and Cards recs FEN: Heart-healthy diet Access: Peripheral IV Consults: Psych, Cardio Ppx: Protonix for GI, SCDs for DVT Patient seen, reviewed, and discussed with attending, Dr. Manzo.
[2017-05-26] MEDS: Potassium Chloride 20 mEq ER Tab PO SCH ×2 (11:10→13:29)
--- NOTE | 2017-05-26 11:22 | CARD ---
APPROVED REPORT EKG Measurement Heart [id number] 130P-4 [id number] <Conclusion> Normal sinus rhythm Normal ECG
--- NOTE | 2017-05-26 13:50 | PN ---
DATE: 05/26/2017 LOCATION: The patient is seen in room number 367, bed 1. SUBJECTIVE: Overnight nurse's notes were reviewed. The patient's blood pressure has been fluctuating variably. The patient has been requiring p.r.n., clonidine, which has been given by the nurses as ordered.. The patient's overnight nurse's notes were reviewed. The patient's blood pressure has been fluctuating in wide range. The patient still complains of some tremulousness. REVIEW OF SYSTEMS: The patient denies any chest pain today. Denies any shortness of breath. Denies nausea, vomiting, diarrhea or constipation. PHYSICAL EXAMINATION: VITAL SIGNS: T-max is 98.2, heart rate telemetry shows sinus rhythm, heart rate 81, 90s and 101. Telemetry shows sinus rhythm. Blood pressure ranging 139/100, 160/100, 172/121 and 152/112. Respirations of 18 and O2 saturation of 99% to 100%. HEENT: The patient's head examination; normocephalic and atraumatic. HEENT examination shows pink conjunctivae. Anicteric sclerae. No oropharyngeal lesion. NECK: No neck rigidity. No visible jugular venous distention. No audible carotid bruit. CHEST: Examination shows kyphosis. Lung examination shows no rales, crackles or wheezing. CARDIOVASCULAR: Examination shows S1 and S2, regular rhythm. Questionable soft systolic murmur left sternal border, and right second intercostal space. GASTROINTESTINAL: Abdomen is obese and protuberant. Positive bowel sounds. No guarding. No rigidity. No rebound tenderness. No appreciable hepatosplenomegaly noted. No guarding noted. No rebound tenderness noted. GENITALIA: Male. RECTAL: Examination is deferred. EXTREMITIES: Lower extremity shows no pitting edema, no calf tenderness and no Homans' sign. NEUROLOGIC: The patient is alert, awake and oriented x3. Cranial nerves II through XII are intact. Gait examination is not tested. MUSCULOSKELETAL: Examination shows elevated body mass index of 38. Positive upper extremity tremulousness noted.. Gait examination is not tested. DIAGNOSTIC STUDIES: WBC of 9.1, hemoglobin and hematocrit of 15 and 44.2, and platelets of 209,000. Sodium of 140, potassium is low as 3.4, chloride is 107, CO2 is 25, BUN of 12 and creatinine of 0.8. Glucose of 101, calcium of 8.9, and magnesium of 1.9. AST has gone up to 201 and ALT is gone up to 134 which dropped in double digits yesterday. HIV fourth generation was negative. Hepatitis A, B and C serologies are negative. IMPRESSION AND PLAN 1. Uncontrolled diastolic systolic hypertension. 2. Alcohol withdrawal with delirium tremens with symptomatic tremulousness of the upper extremity. 3. History of alcohol binging, alcohol addiction and alcohol dependence. 4. Morbid obesity with elevated body mass index of 38. 5. Hepatic steatosis and hepatomegaly. 6. Transaminitis, most likely alcoholic hepatitis. 7. Hypokalemia. 8. Hypertension. 9. Hypokalemia. 10. Nicotine and alcohol dependence and addiction. 11. Morbid obesity. 12. Questionable history of cardiac arrest as per the patient. 13. History of gastric sleeve surgery. PLAN: At this time, the patient will be started on Cozaar 50 mg daily. The patient has been given a dose of potassium 20 mEq x2 doses. The patient's current medications are Actigall 300 mg twice a day, Ativan 1 mg IV q. 4 hours. p.r.n., clonidine 0.1 mg q. 4 hours. p.r.n. and the patient is started on Cozaar 50 mg. The patient is on trazodone (Desyrel )50 mg bedtime p.r.n. and the patient is on Ecotrin 81 mg daily. Haldol 2 mg IM q. 8 hours. p.r.n. Potassium 20 mEq x2 doses ordered. The patient is on Librium tapering dose protocol and scheduled protocol. The patient is on Lopressor 25 mg twice a day, nicotine patch 21 mg daily, Protonix 40 mg daily, multivitamins 1 tablet daily, thiamine 100 mg daily, and Xopenex nebulizer 0.63 mg every 6 hours. At present, the patient will be continued on above therapeutic intervention. The patient's subjective and objective data will be monitored. The patient's clinical condition will be monitored. The patient's echocardiogram results are pending. Cardiology evaluation is pending and Psychiatric evaluation is pending. The patient also has history of anxiety, depression, and alcohol and nicotine dependence. DATE OF SERVICE AND DICTATION: 05/26/2017 Dictated and electronically signed, not read. Signing off Gordy Manzo MD Gordy MD [facility] # [id number]
--- NOTE | 2017-05-26 17:29 | CARD ---
APPROVED REPORT EKG Measurement Heart [id number] [id number] <Conclusion> Normal sinus rhythm Prolonged QT Abnormal ECG
[2017-05-26 18:32] VITALS: O2SAT 97
--- NOTE | 2017-05-26 22:13 | CON ---
DATE: 05/26/2017 HISTORY OF PRESENT ILLNESS: The patient is a 46-year-old male who presented with an episode of chest pain after he restarted drinking alcohol after abstaining for a long time. In addition, the patient has a history of smoking as well. He suffers from hypertension and is currently on no medications. The patient has a questionable cardiac history in the past although his memory is not clear of the details. SOCIAL HISTORY: He does smoke. REVIEW OF SYSTEMS: A 14-point review of systems is reviewed in detail. No cardiac symptomatology are active at this time. PHYSICAL EXAMINATION: VITAL SIGNS: Blood pressure 152/110, heart rates in the 80s. NECK: Negative JVD. LUNGS: Without rales. HEART: S1, S2. EXTREMITIES: Without edema. EKG shows no acute changes. LABORATORY DATA: BUN and creatinine unremarkable. Troponin negative x3. Hemoglobin is 15. IMPRESSION: 1. Transient chest pain. 2. Alcohol withdrawal. 3. Questionable history of cardiac arrest years ago without details. 4. Hypertension. 5. Nicotine addiction. Given these findings, there is no evidence for acute coronary syndrome. Once he recovers from his alcohol withdrawal, I have discussed with the patient about the need to stop smoking. We will arrange for an outpatient stress test to evaluate his cardiac status, which can be done electively. Matty Cuellar MD
[2017-05-26] MEDS: Pantoprazole 40 mg EC Tab PO SCH (22:41)
[2017-05-27] MEDS: Levalbuterol 0.63 MG/3 ML Inhal Soln UD IH SCH ×3 (01:16→13:19)
[2017-05-27 06:41] LABS: HEMOGLOBIN 15.2 g/dL (14.0-18.0); MEAN CELL VOLUME 97.8 fl (80.0-105.0); MEAN CORPUSCULAR HEMOGLOBIN 34.1 pg (25.0-35.0); MEAN CORPUSCULAR HGB CONC 34.9 g/dl (31.0-37.0); MEAN PLATELET VOLUME 11.1 fl (7.0-11.0); RBC 4.46 10^6/uL (3.5-6.1); RED CELL DISTRIBUTION WIDTH 13.8 % (11.5-14.5)
[2017-05-27 07:13] LABS: ALB/GLOB RATIO 1.2 (1.1-1.8); ALBUMIN 3.6 g/dL (3.0-4.8); ALT/SGPT 190 U/L (7-56); AST/SGOT 246 U/L (17-59); BILIRUBIN,DIRECT 0.5 mg/dL (0.0-0.4); BLOOD UREA NITROGEN 19 mg/dL (7-21); CALCIUM 9.3 mg/dL (8.4-10.5); GFR AFRICAN-AMERICAN > 60; GFR NON-AFRICAN AMERICAN > 60; MAGNESIUM 1.9 mg/dL (1.7-2.2)
[2017-05-27 08:49] VITALS: BP 135/97; PULSE 81; TEMP 97.5
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
[2017-05-27] MEDS: Multivitamin With Minerals Tab PO SCH (10:17)
[2017-05-27] MEDS: Pantoprazole 40 mg EC Tab PO SCH (10:17)
--- NOTE | 2017-05-27 13:43 | PN ---
DATE: 05/27/2017 He is being seen today for a followup consultation. PRESENTATION: This is a 46-year-old male seen at bedside. The patient was admitted to the hospital on 05/24/2017 due to chest pain with a history of cardiac arrest and drinking of fifth of rum daily. Psychiatric consult was called to evaluate the alcohol dependence. The patient today has a bright affect. He indicates seems to be improving, feeling well, and looking forward to going home. No shaking. No sweating. He is comfortable and has no complaints. PHYSICAL EXAMINATION: Current vital signs include temperature of 97.5, pulse rate of 81, and blood pressure of 135/97. MENTAL STATUS EXAM: The patient is alert and oriented x3. His eye contact is good. His behavior is pleasant and cooperative. Speech rate and volume are within normal limits. Mood is euthymic. Affect is full. Thoughts are goal directed and concrete. He denies being suicidal or homicidal. He denies presence of hallucinations, delusion, or paranoia. His concentration and his focus, he reports are normal. His memory both short and care home is good. His appetite and sleep are improving. LABORATORY DATA: His labs indicate that his white blood cell count is now normal. MEDICATIONS: He is only taking Ativan 1 mg t.i.d. for the withdrawal along with thiamine and multivitamin. DIAGNOSTIC IMPRESSION: Major depression with psychotic features in remission. PLAN: The patient denies being suicidal or homicidal. Appears in no eminent danger for himself or others. As stated in yesterday's note the patient in the past has been on Geodon 40 mg with dinner. He is not currently having any psychiatric symptoms, however, I will defer to the medical team restarting that due to the possible impact that Geodon on his QT. We will continue to follow every other day. Thank you for the consult. Carolyn Bailon APN
--- NOTE | 2017-05-27 15:53 | CARD ---
APPROVED REPORT EKG Measurement Heart [id number] SD 136P7 [id number] <Conclusion> Normal sinus rhythm Nonspecific T wave abnormality Abnormal ECG
--- NOTE | 2017-05-27 16:48 | CARD ---
APPROVED REPORT EXAM: Two-dimensional and M-mode echocardiogram with Doppler and color Doppler. INDICATION CARDIAC ARREST 2D DIMENSIONS Left Atrium (2D)4.0 (1.6-4.0cm)IVSd1.3 (0.7-1.1cm) LVDd5.2 (3.9-5.9cm)PWd1.4 (0.7-1.1cm) LVDs3.9 (2.5-4.0cm)FS (%) 25.8 % LVEF (%)50.4 (>50%) M-Mode DIMENSIONS Aortic Root3.20 (2.2-3.7cm)Aortic Cusp Exc.1.70 (1.5-2.0cm) Aortic Valve AoV Peak Xoqvoest196.0cm/April Peak GR.11mmHg Mitral Valve MV E Athlqucc05.1cm/sMV A Cmfczcgo26.1cm/sE/A ratio0.9 TDI Lateral E' Peak V6.82cm/sMedial E' Peak V6.04cm/sE/Lateral E'12.5 E/Medial E'14.1 Pulmonary Valve PV Peak Pwkxqpdm77.5cm/sPV Peak Grad.2mmHg Tricuspid Valve TR Peak Esdlnstr465yf/sRAP VJEQBFSL55pmGhVY Peak Gr.31mmHg HLRN79yjPt LEFT VENTRICLE The left ventricle is normal size. There is mild concentric left ventricular hypertrophy. The left ventricular function is normal. The left ventricular ejection fraction is within the normal range. There is normal LV segmental wall motion. Transmitral Doppler flow pattern is Grade I-abnormal relaxation pattern. RIGHT VENTRICLE The right ventricle is normal size. There is normal right ventricular wall thickness. The right ventricular systolic function is normal. ATRIA The left atrium size is normal. The right atrium size is normal. AORTIC VALVE The aortic valve is not well visualized. No aortic regurgitation is present. There is no aortic valvular stenosis. MITRAL VALVE The mitral valve is not well visualized. There is no mitral valve regurgitation noted. There is no mitral valve stenosis. TRICUSPID VALVE There is mild tricuspid regurgitation. There is mild pulmonary hypertension. GREAT VESSELS The aortic root is normal in size. PERICARDIAL EFFUSION There is no pleural effusion. <Conclusion> The left ventricle is normal size. There is mild concentric left ventricular hypertrophy. The left ventricular function is normal. The left ventricular ejection fraction is within the normal range. There is normal LV segmental wall motion. Transmitral Doppler flow pattern is Grade I-abnormal relaxation pattern. There is mild tricuspid regurgitation. There is mild pulmonary hypertension.
--- NOTE | 2017-05-27 18:42 | PN ---
DATE: 05/27/2017 CARDIOLOGY FOLLOWUP SUBJECTIVE: The patient is resting. No recurrent chest pain. PHYSICAL EXAMINATION VITAL SIGNS: Blood pressure is 135/97, heart rate in the 80s. NECK: Negative JVD. LUNGS: Without rales. HEART: S1, S2. EXTREMITIES: Without edema. LABORATORY DATA: Hemoglobin is 15. Chemistries: LFTs are elevated. Troponins are negative x3. IMPRESSION: 1. Resolution of chest pain. 2. No evidence for acute coronary syndrome. 3. Nicotine addiction. 4. Hypertension. 5. Alcoholic withdrawal. Given these findings, there is no evidence for arrhythmias. We will discontinue telemetry today. Matty Cuellar MD
--- NOTE | 2017-05-28 05:52 | DS ---
FINAL PROGRESS NOTE AND DISCHARGE SUMMARY HISTORY OF PRESENT ILLNESS: The patient is seen in room 370, bed 2. Overnight nurse's notes were reviewed. No withdrawal symptoms were noted. The patient stayed well and slept well. The patient denies any chest pain. Denies any nausea, vomiting, diarrhea, or constipation. Denies hemoptysis, hematemesis, or melena. Denies hematochezia. Denies any bleeding. PHYSICAL EXAMINATION: VITAL SIGNS: T-max 98.7. Telemetry shows sinus rhythm, blood pressure 121/84, respirations 20, O2 sat 95%, and heart rate . HEENT: Head examination; normocephalic and atraumatic. HEENT examination shows pinkish conjunctivae. Anicteric sclerae. No oropharyngeal lesion. NECK: No neck rigidity. CHEST: Kyphosis. LUNGS: Shows no rales, crackles, or wheezing. CARDIAC: No audible murmur, gallop, or rub. ABDOMEN: Obese and protuberant. Positive bowel sounds. No appreciable palpable hepatosplenomegaly noted. No guarding. No rigidity. No rebound tenderness. GENITALIA: Male. RECTAL: Deferred. EXTREMITIES: Upper and lower extremity shows no pitting. No calf tenderness. No Homans' sign. No clubbing or cyanosis. Upper extremity shows no asterixis and no tremulousness. VASCULAR: Palpable pulses. NEUROLOGIC: The patient is alert, awake, and oriented x3. Cranial nerves II-XII intact. PSYCHIATRIC: Positive for history of anxiety and depression. Negative for suicidal or homicidal ideation. Negative for auditory or visual hallucinations. DIAGNOSTIC DATA: On 05/27/2017; WBC 9.0, hemoglobin/hematocrit 15.2 and 43.6, and platelet 207. Sodium 141, potassium 3.8, chloride 109, CO2 of 25, BUN 19, creatinine 0.8, glucose 97, calcium 9.3, magnesium 1.9, AST 246, and ALT 190. IMPRESSION: 1. Acute alcohol withdrawal and delirium tremens (resolved). 2. Chest pain, probably atypical. 3. Uncontrolled hypertension. 4. Morbid obesity with elevated body mass index of 38. 5. History of anxiety and depression. 6. Hepatic steatosis and hepatomegaly. 7. Hypertension. 8. Active nicotine and alcohol addiction and dependence. 9. Morbid obesity. 10. Transaminitis versus alcoholic hepatitis. 11. Hepatic steatosis and fatty liver. 12. Morbid obesity. 13. Chest pain, probably musculoskeletal versus atypical versus gastroesophageal reflux versus alcoholic gastritis and hepatitis. 14. The patient was seen by subsystems engineer, Dr. Cuellar cleared for discharge with outpatient stress test. 15. The patient's echo Doppler done, results are pending. DISCHARGE PLAN: The patient will be discharged home. DISCHARGE FOLLOWUP: Discharge follow up with Dr. Manzo within [address] Cuellar within 1 week for outpatient stress test. DISCHARGE MEDICATIONS: The patient will be discharged home on Actigall 300 mg twice a day, thiamine 100 mg daily, Protonix 40 mg daily, nicotine patch 21 mg daily, Lopressor 25 mg twice a day, Cozaar 50 mg daily, and aspirin 81 mg daily. CURRENT MEDICATIONS: The patient's current medications as of today's JUL; the patient is on: 1. Actigall 300 mg twice a day. 2. Ativan 1 mg IV q.4 hours p.r.n. 3. Ativan 1 mg p.o. three times a day. 4. Clonidine 0.1 mg q.4 hours p.r.n. 5. Cozaar 50 mg daily. 6. Trazodone and Desyrel 50 mg at bedtime p.r.n. 7. Ecotrin 81 mg daily. 8. Haldol 2 mg IM q.8 hours p.r.n. 9. The patient is on Lopressor 25 mg twice a day. 10. Nicotine patch 21 mg daily. 11. Protonix 40 mg daily. 12. Multivitamin 1 tablet daily. 13. Thiamine 100 mg daily. 14. Xopenex nebulizer 0.63 mg every 6 hours. At present during this hospitalization, the patient was extensively explained about his diagnosis, test results, and all the recommendations were reinforced and explained on a daily basis in layman's language. All questions concerned and answered. Time spent in the entire discharge process more than 45 minutes. Dictated and electronically signed, not read. Gordy Manzo MD
== END 2017-05-27 18:17 | disposition home or self-care (01) | DRG 897 ==
LOC: ED 18:24 → ERH 20:54 → 3RNO 05-25 17:02 → 3RSO 05-26 22:40
PROVIDERS: ADMIT Internal Medicine; ATTEND Internal Medicine
DX: F10.231 Alcohol dependence with withdrawal delirium (principal); Z86.74 Personal history of sudden cardiac arrest; F32.3 Major depressive disorder, single episode, severe with psychotic features; K70.10 Alcoholic hepatitis without ascites; K76.0 Fatty (change of) liver, not elsewhere classified; E66.01 Morbid (severe) obesity due to excess calories; I10 Essential (primary) hypertension; F41.9 Anxiety disorder, unspecified; E87.6 Hypokalemia; R80.9 Proteinuria, unspecified; E83.42 Hypomagnesemia; R07.89 Other chest pain; E78.00 Pure hypercholesterolemia, unspecified; F17.210 Nicotine dependence, cigarettes, uncomplicated; G47.00 Insomnia, unspecified; Y90.0 Blood alcohol level of less than 20 mg/100 ml; Z68.38 Body mass index [BMI] 38.0-38.9, adult; I25.2 Old myocardial infarction; Z98.84 Bariatric surgery status

== ENCOUNTER 2017-06-16 07:51 | Emergency (ER) | payer OTHER ==
[2017-06-16 08:14] VITALS: RESP 18; TEMP 98.8
[2017-06-16 08:19] VITALS: BMI 36.6
--- NOTE | 2017-06-16 08:52 | ED PDOC ---
Arrival/HPI - General Chief Complaint: Dizziness/Lightheaded Time Seen by Provider: 06/16/17 08:22 Historian: Patient - History of Present Illness Narrative History of Present Illness (Text): 06/16/17 08:52 A 46 year old male, whose past medical history includes depression and hypertension, presents to the emergency department complaining of dizziness, lightheadedness and slurred speech. Patient reports he drank alcohol last night. Patient denies any cough, chest pain or any other complaints at this time. Patient reports to smoking and drinking, daily. Symptom Onset: Sudden Symptom Course: Unchanged Activities at Onset: Rest Context: Home Past Medical History - Provider Review Nursing Documentation Reviewed: Yes - Infectious Disease Hx of Infectious Diseases: None - Cardiac Hx Hypertension: Yes - Musculoskeletal/Rheumatological Hx Falls: No - Psychiatric Hx Depression: Yes Hx Substance Use: No - Anesthesia Hx Anesthesia: No Family/Social History - Physician Review Nursing Documentation Reviewed: Yes Family/Social History: No Known Family HX Smoking Status: Heavy Smoker > 10 Cigarettes Daily Hx Alcohol Use: Yes Frequency of alcohol use: Daily Hx Substance Use: No Allergies/Home Meds Allergies/Adverse Reactions: Allergies No Known Allergies Allergy (Verified 05/24/17 18:36) Home Medications: Home Meds Medication Instructions Recorded Confirmed Ziprasidone [Geodon] 40 mg PO DAILY 05/24/17 06/16/17 Zolpidem [Ambien] 10 mg PO HS 06/16/17 06/16/17 Review of Systems - Physician Review All systems were reviewed & negative as marked: Yes - Review of Systems Constitutional: Other (lightheadedness) Respiratory: absent: Cough Cardiovascular: absent: Chest Pain Neurological: Dizziness, Speech Changes (slurred speech) Physical Exam Vital Signs Reviewed: Yes Vital Signs Temp Pulse Resp BP Pulse Ox 06/16/17 10:45 98 H 18 142/88 100 06/16/17 09:56 94 H 18 121/85 99 06/16/17 08:14 98.8 F 105 H 18 158/116 H 96 Temperature: Afebrile Blood Pressure: Hypertensive Pulse: Tachycardic Respiratory Rate: Normal Appearance: Positive for: Well-Appearing, Comfortable, Other (mildly intoxicated ) Pain Distress: None Mental Status: Positive for: Alert and Oriented X 3 - Systems Exam Head: Present: Atraumatic, Normocephalic Pupils: Present: PERRL Extroacular Muscles: Present: EOMI Conjunctiva: Present: Normal Mouth: Present: Moist Mucous Membranes Neck: Present: Normal Range of Motion Respiratory/Chest: Present: Clear to Auscultation, Good Air Exchange. No: Respiratory Distress, Accessory Muscle Use Cardiovascular: Present: Regular Rate and Rhythm, Normal S1, S2. No: Murmurs Abdomen: Present: Normal Bowel Sounds. No: Tenderness, Distention, Peritoneal Signs Back: Present: Normal Inspection Upper Extremity: Present: Normal Inspection. No: Cyanosis, Edema Lower Extremity: Present: Normal Inspection. No: Edema Neurological: Present: GCS=15, CN II-XII Intact, Speech Normal Skin: Present: Warm, Dry, Normal Color. No: Rashes Psychiatric: Present: Alert, Oriented x 3, Normal Concentration, Anxious, Other (tremulous; unsteady) Medical Decision Making ED Course and Treatment: 06/16/17 08:49 Impression: A 46 year old male with dizziness, lightheadedness, tremors and alcohol intoxication. Plan: -- labs -- Ativan, Catapres -- Reassess and disposition Prior Visits: Notes and results from previous visits were reviewed. Patient was last seen in the emergency department on 05/24/17 for evaluation of alcohol intoxication and generalized chest pain. Patient was admitted to Telemetry for alcohol withdrawal. Progress Notes: - Lab Interpretations Lab Results: 06/16/17 08:50 06/16/17 08:50 Lab Results 06/16/17 08:50: Sodium 142, Potassium 3.8, Chloride 105, Carbon Dioxide 24, Anion Gap 17, BUN 15, Creatinine 0.8, Est GFR ( Amer) > 60, Est GFR (Non- Af Amer) > 60, Random Glucose 133 H, Calcium 10.0, Total Bilirubin 0.8, AST 81 H D, ALT 74 H, Alkaline Phosphatase 93, Total Protein 7.4, Albumin 4.3, Globulin 3.1, Albumin/Globulin Ratio 1.4 06/16/17 08:50: WBC 9.6, RBC 4.75, Hgb 16.2, Hct 45.7, MCV 96.2, MCH 34.1, MCHC 35.4, RDW 13.5, Plt Count 206, MPV 11.0, Gran % 80.1 H, Lymph % (Auto) 8.3 L, Schley % (Auto) 8.6 H, Eos % (Auto) 2.4, Baso % (Auto) 0.6, Gran # 7.72 H, Lymph # (Auto) 0.8 L, Schley # (Auto) 0.8 H, Eos # (Auto) 0.2, Baso # (Auto) 0.06 06/16/17 08:50: Alcohol, Quantitative < 10 I have reviewed the lab results: Yes - Medication Orders Current Medication Orders: Discontinued Medications Clonidine HCl (Catapres) 0.2 mg PO STAT STA Stop: 06/16/17 08:31 Last Admin: 06/16/17 09:01 Dose: 0.2 mg Lorazepam (Ativan) 2 mg PO ONCE ONE PRN Reason: Protocol Stop: 06/16/17 08:31 Last Admin: 06/16/17 09:02 Dose: 2 mg - Scribe Statement The provider has reviewed the documentation as recorded by the Julio César Cuevas Provider Scribe Attestation: All medical record entries made by the Scribe were at my direction and personally dictated by me. I have reviewed the chart and agree that the record accurately reflects my personal performance of the history, physical exam, medical decision making, and the department course for this patient. I have also personally directed, reviewed, and agree with the discharge instructions and disposition. Disposition/Present on Arrival - Present on Arrival Any Indicators Present on Arrival: No History of DVT/PE: No History of Uncontrolled Diabetes: No Urinary Catheter: No History of Decub. Ulcer: No History Surgical Site Infection Following: None - Disposition Have Diagnosis and Disposition been Completed?: Yes Diagnosis: Hypertension, Alcohol withdrawal Disposition: HOME/ ROUTINE Disposition Time: 11:10 Patient Plan: Discharge Patient Problems: Current Active Problems Problem Status Onset Alcohol withdrawal Acute Hypertension Acute Condition: IMPROVED Prescriptions: cloNIDine [Catapres] 0.2 mg PO BID #30 tab Forms: [facility] (K[place]z)
[2017-06-16 09:11] LABS: BASO # 0.06 K/mm3 (0.0-2.0); BASO % 0.6 % (0.0-3.0); EOS # 0.2 (0.0-0.7); EOS % 2.4 % (1.5-5.0); GRAN # 7.72 (1.4-6.5); GRAN % 80.1 % (50.0-68.0); HEMOGLOBIN 16.2 g/dL (14.0-18.0); LYMPH # 0.8 (1.2-3.4); LYMPH % 8.3 % (22.0-35.0); MEAN CELL VOLUME 96.2 fl (80.0-105.0); MEAN CORPUSCULAR HEMOGLOBIN 34.1 pg (25.0-35.0); MEAN CORPUSCULAR HGB CONC 35.4 g/dl (31.0-37.0); MONO # 0.8 (0.1-0.6); MONO % 8.6 % (1.0-6.0); RBC 4.75 10^6/uL (3.5-6.1); RED CELL DISTRIBUTION WIDTH 13.5 % (11.5-14.5); WHITE BLOOD COUNT 9.6 10^3/ul (4.5-11.0)
[2017-06-16 09:47] LABS: ALB/GLOB RATIO 1.4 (1.1-1.8); ALBUMIN 4.3 g/dL (3.0-4.8); ALT/SGPT 74 U/L (7-56); AST/SGOT 81 U/L (17-59); BLOOD UREA NITROGEN 15 mg/dL (7-21); GFR AFRICAN-AMERICAN > 60; GFR NON-AFRICAN AMERICAN > 60
[2017-06-16 10:47] VITALS: BP 142/88; PULSE 98; O2SAT 100
--- NOTE | 2017-06-17 08:12 | CARD ---
APPROVED REPORT EKG Measurement Heart [id number] HI 124P5 [id number] <Conclusion> Sinus tachycardia RVCD NSSTW changes
== END 2017-06-16 11:40 | disposition home or self-care (01) ==
LOC: ED 07:51
DX: I10 Essential (primary) hypertension (principal); F10.239 Alcohol dependence with withdrawal, unspecified; Y90.0 Blood alcohol level of less than 20 mg/100 ml; F17.210 Nicotine dependence, cigarettes, uncomplicated

== ENCOUNTER 2017-07-06 09:42 | Inpatient (IN) | payer OTHER ==
--- NOTE | 2017-07-06 10:27 | RAD ---
HISTORY: PEs eval COMPARISON: 05/24/2017. FINDINGS: LUNGS: The lungs are well inflated and clear. PLEURA: No significant pleural effusion identified, no pneumothorax apparent. CARDIOVASCULAR: Normal. OSSEOUS STRUCTURES: No significant abnormalities. VISUALIZED UPPER ABDOMEN: Normal. OTHER FINDINGS: None. IMPRESSION: No active pulmonary disease.
[2017-07-06] MEDS ORDERED: Multivitamin (MVI) 10 ML, Thiamine 100 MG, Folic Acid 1 MG in Sodium Chloride 0.9% 1,00... IV ONE (10:31)
[2017-07-06 10:33] LABS: BASO # 0.04 K/mm3 (0.0-2.0); BASO % 0.4 % (0.0-3.0); EOS # 0.2 (0.0-0.7); EOS % 2.7 % (1.5-5.0); GRAN # 7.03 (1.4-6.5); GRAN % 78.5 % (50.0-68.0); HEMOGLOBIN 15.8 g/dL (14.0-18.0); LYMPH # 0.9 (1.2-3.4); LYMPH % 10.4 % (22.0-35.0); MEAN CELL VOLUME 95.8 fl (80.0-105.0); MEAN CORPUSCULAR HEMOGLOBIN 34.6 pg (25.0-35.0); MEAN CORPUSCULAR HGB CONC 36.2 g/dl (31.0-37.0); MEAN PLATELET VOLUME 10.9 fl (7.0-11.0); MONO # 0.7 (0.1-0.6); RBC 4.56 10^6/uL (3.5-6.1); RED CELL DISTRIBUTION WIDTH 13.7 % (11.5-14.5)
[2017-07-06 10:41] LABS: ACETAMINOPHEN < 10.0 ug/ml (10.0-20.0); SALICYLATE < 1 mg/dL (2.0-20.0)
[2017-07-06 10:46] LABS: ALB/GLOB RATIO 1.4 (1.1-1.8); ALBUMIN 4.4 g/dL (3.0-4.8); ALT/SGPT 212 U/L (7-56); AST/SGOT 192 U/L (17-59); BLOOD UREA NITROGEN 9 mg/dL (7-21); CALCIUM 9.5 mg/dL (8.4-10.5); GFR AFRICAN-AMERICAN > 60; GFR NON-AFRICAN AMERICAN > 60
[2017-07-06 12:35] LABS: URINE BILIRUBIN NEGATIVE (NEGATIVE); URINE BLOOD NEGATIVE (NEGATIVE); URINE GLUCOSE (UA) NEGATIVE (NEGATIVE); URINE LEUKOCYTE ESTERASE NEGATIVE Leu/uL (NEGATIVE); URINE PROTEIN NEGATIVE mg/dL (<30 mg/dL); URINE UROBILINOGEN 0.2 E.U./dL (<1 E.U./dL)
[2017-07-06 12:36] LABS: URINE APPEARANCE CLEAR (CLEAR); URINE COLOR LIGHT YELLOW (YELLOW)
[2017-07-06 12:48] LABS: BARBITURATES, UR NEGATIVE (NEGATIVE); BENZODIAZEPINES, UR NEGATIVE (NEGATIVE); OPIATES, UR NEGATIVE (NEGATIVE); PHENCYCLIDINE, UR NEGATIVE (NEGATIVE)
[2017-07-06] MEDS ORDERED: Magnesium Sulfate 1 gm in D5W 1 GM/100 ML BAG IVPB ONE (14:07)
[2017-07-06] MEDS ORDERED: Potassium Chloride 20 mEq ER Tab PO STA (14:08)
--- NOTE | 2017-07-06 14:34 | CP.PCM.HP ---
History of Present Illness - History of Present Illness History of Present Illness: Medicine H&P for Dr. Manzo cc: cold sweats/tremors 46 M with past medical history that includes schizophrenia and EtOH abuse presents to [facility] for complaint of cold sweats/tremors. Patient states that he drinks a fifth of liquor everyday. Last night, patient quit drinking around 9 pm. Several hours later, he woke up sweating and shaking. Patient decided to go back to sleep. This morning patient woke up feeling worse. He developed associated nausea with one episode of nonbloody, non-bilious emesis. Patient then decided to go to the ED to be seen. Patient denies any pain. Patient denies any exacerbating/alleviating factors. He admits to palpitations, dizziness/lightheadedness, vertigo, blurry vision, diaphoresis, chills, tremors. Denies fever, chest pain, SOB, abdominal pain, diarrhea, incontinence. PMD: Dr. Shepherd (last seen 2 years ago) PMH: Schizophrenia, EtOH abuse Meds: Zoloft, Trazodone, Geodon Allergy: NKDA PSH: Denies FH: non-contributory Social: smokes 2-3 cigars per day for 15 years, drinks a fifth of liquor per day , denies illicit drug use Present on Admission - Present on Admission Any Indicators Present on Admission: No History of DVT/PE: No History of Uncontrolled Diabetes: No Urinary Catheter: No Decubitus Ulcer Present: No Review of Systems - Review of Systems All systems: reviewed and no additional remarkable complaints except (12 point ROS as per HPI) Past Patient History - Infectious Disease Hx of Infectious Diseases: None - Past Social History Smoking Status: Heavy Smoker > 10 Cigarettes Daily - CARDIAC Hx Cardiac Disorders: Yes Hx Hypertension: Yes - PULMONARY Hx Respiratory Disorders: No - NEUROLOGICAL Hx Neurological Disorder: No - HEENT Hx HEENT Problems: No - RENAL Hx Chronic Kidney Disease: No - ENDOCRINE/METABOLIC Hx Endocrine Disorders: No - HEMATOLOGICAL/ONCOLOGICAL Hx Blood Disorders: No - INTEGUMENTARY Hx Dermatological Problems: No - MUSCULOSKELETAL/RHEUMATOLOGICAL Hx Musculoskeletal Disorders: No - GASTROINTESTINAL Hx Gastrointestinal Disorders: No - GENITOURINARY/GYNECOLOGICAL Hx Genitourinary Disorders: No - PSYCHIATRIC Hx Psychophysiologic Disorder: Yes Hx Depression: Yes Hx Schizophrenia: Yes Hx Substance Use: No - SURGICAL HISTORY Hx Surgeries: Yes (gastric sleeve) - ANESTHESIA Hx Anesthesia: No Meds Allergies/Adverse Reactions: Allergies Allergy/AdvReac Type Severity Reaction Status Date / Time No Known Allergies Allergy Verified 07/06/17 09:43 Physical Exam - Constitutional Appears: No Acute Distress - Head Exam Head Exam: ATRAUMATIC, NORMOCEPHALIC - Eye Exam Eye Exam: EOMI, Normal appearance Pupil Exam: PERRL - ENT Exam ENT Exam: Mucous Membranes Moist - Neck Exam Neck exam: Negative for: Tenderness - Respiratory Exam Respiratory Exam: Clear to Auscultation Bilateral, NORMAL BREATHING PATTERN. absent: Accessory Muscle Use, Respiratory Distress - Cardiovascular Exam Cardiovascular Exam: REGULAR RHYTHM, +S1, +S2 - GI/Abdominal Exam GI & Abdominal Exam: Normal Bowel Sounds, Soft. absent: Distended, Firm, Guarding, Rebound, Rigid, Tenderness - Extremities Exam Extremities exam: Positive for: normal capillary refill, pedal pulses present. Negative for: calf tenderness Additional comments: mild tremor - Back Exam Back exam: absent: CVA tenderness (L), CVA tenderness (R) - Neurological Exam Neurological exam: Alert, CN II-XII Intact, Oriented x3 - Psychiatric Exam Psychiatric exam: Normal Affect, Normal Mood - Skin Skin Exam: Dry, Intact, Normal Color, Warm Results - Vital Signs Recent Vital Signs: Last Vital Signs Temp 98.7 F 07/06/17 09:53 Pulse 91 H 07/06/17 11:03 Resp 18 07/06/17 11:03 BP 157/96 H 07/06/17 11:03 Pulse Ox 99 07/06/17 11:03 - Labs Result Diagrams: 07/06/17 10:10 07/06/17 10:10 Assessment & Plan - Assessment and Plan (Free Text) Plan: 46 M with PMH of Schizophrenia and EtOH abuse that presents for EtOH withdrawal EtOH withdrawal NPO CIWA protocol Aspiration precautions Seizure precautions Fall risk Banana bad Ativan Schizophrenia Geodon 20 mg PO BID Trazodone 100 mg PO HS Zoloft 25 mg po daily Psych consult, Dr. Patel, help appreciated Prophylaxis SCDs Protonix Discussed with Dr. Anais Medrano PGY1
--- NOTE | 2017-07-06 15:05 | ED PDOC ---
Arrival/HPI - General Chief Complaint: Psychiatric Evaluation Time Seen by Provider: 07/06/17 09:56 Historian: Patient, Family - History of Present Illness Narrative History of Present Illness (Text): 07/06/17 15:02 46yr old male presents today with concerns for schizophrenia acting up. Patient states he is seeing the psychiatrist and had his medications adjusted for schizophrenia. Patient states he's been feeling paranoid and feels this is the devil is after him taking his soul away. Patient denies suicidal or homicidal ideations. Patient states that he has been binge drinking for the past few months. Patient's last drink was around 9 PM last night. Patient states he's been feeling very shaky today and feeling extremely anxious. He denies chest pain or shortness of breath. Denies dizziness or weakness. Denies fevers or chills. Denies any trauma or injury. Denies headaches. No other complaints. Symptom Onset: Gradual Past Medical History - Provider Review Nursing Documentation Reviewed: Yes - Travel History Have you recently traveled outside [place] w/in the past 3 mons?: No - Infectious Disease Hx of Infectious Diseases: None - Cardiac Hx Cardiac Disorders: Yes Hx Hypertension: Yes - Pulmonary Hx Respiratory Disorders: No - Neurological Hx Neurological Disorder: No - HEENT Hx HEENT Disorder: No - Renal Hx Renal Disorder: No - Endocrine/Metabolic Hx Endocrine Disorders: No - Hematological/Oncological Hx Blood Disorders: No - Integumentary Hx Dermatological Disorder: No - Musculoskeletal/Rheumatological Hx Musculoskeletal Disorders: No - Gastrointestinal Hx Gastrointestinal Disorders: No - Genitourinary/Gynecological Hx Genitourinary Disorders: No - Psychiatric Hx Psychophysiologic Disorder: Yes Hx Depression: Yes Hx Schizophrenia: Yes Hx Substance Use: No - Anesthesia Hx Anesthesia: No Family/Social History - Physician Review Nursing Documentation Reviewed: Yes Family/Social History: Unknown Family HX Smoking Status: Heavy Smoker > 10 Cigarettes Daily Hx Alcohol Use: Yes Hx Substance Use: No Allergies/Home Meds Allergies/Adverse Reactions: Allergies No Known Allergies Allergy (Verified 07/06/17 09:43) Home Medications: Home Meds Medication Instructions Recorded Confirmed Ziprasidone [Geodon] 20 mg PO AMHS 05/24/17 07/06/17 Sertraline [Zoloft] 25 mg PO DAILY 07/06/17 07/06/17 traZODone [Desyrel] 100 mg PO DAILY 07/06/17 07/06/17 Review of Systems - Review of Systems Constitutional: Fatigue. absent: Fevers ENT: absent: Sore Throat, Sinus Congestion Respiratory: absent: SOB, Cough Cardiovascular: absent: Chest Pain, Palpitations Gastrointestinal: absent: Abdominal Pain, Nausea, Vomiting Musculoskeletal: absent: Arthralgias, Back Pain, Neck Pain Skin: absent: Rash, Pruritis Neurological: absent: Headache, Dizziness Psychiatric: Anxiety. absent: Depression, Suicidal Ideation Physical Exam Vital Signs Reviewed: Yes Vital Signs Temp Pulse Resp BP Pulse Ox 07/06/17 17:49 98 F 92 H 18 123/63 99 07/06/17 15:00 88 18 141/80 98 07/06/17 13:00 90 18 155/90 H 98 07/06/17 11:03 91 H 18 157/96 H 99 07/06/17 10:30 101 H 18 175/108 H 98 07/06/17 09:53 98.7 F 111 H 21 189/138 H 96 Temperature: Afebrile Blood Pressure: Hypertensive Pulse: Tachycardic Respiratory Rate: Normal Appearance: Positive for: Well-Appearing, Non-Toxic, Comfortable Pain Distress: Mild Mental Status: Positive for: Alert and Oriented X 3 - Systems Exam Head: Present: Atraumatic Mouth: Present: Moist Mucous Membranes, Other (Tongue fasciculations) Nose (External): Present: Atraumatic Neck: Present: Normal Range of Motion Respiratory/Chest: Present: Good Air Exchange, Wheezes (occasional slight expiratory wheeze noted.). No: Respiratory Distress, Accessory Muscle Use, Retracting, Rhonchi, Tachypneic Cardiovascular: Present: Tachycardic. No: Murmurs Abdomen: No: Tenderness, Distention, Rebound, Guarding Upper Extremity: Present: Normal ROM Lower Extremity: Present: Normal ROM Neurological: Present: GCS=15, Speech Normal Skin: Present: Warm, Dry, Normal Color. No: Rashes Psychiatric: Present: Alert, Oriented x 3, Agitated, Depressed Mood. No: Suicidal Ideation, Homicidal Ideation, Intoxicated Medical Decision Making ED Course and Treatment: 07/06/17 15:06 46yr old male presents today with psychiatric evaluation; pt hypertensive, tachycardic with tongue fasciculations and tremors in all 4 extremities. Patient is nontoxic well-appearing in no distress vital signs are stable. CBC WNL CMP k; 3.4 Tylenol WNL Salicylate WNL Alcohol level WNL trop; wnl Urine drug screen wnl UA; wnl cxr: wnl ekg: Sinus tachycardia at [address] elevations QTC 433 07/06/17 15:08 pt presents with alcohol withdrawal; pt given 2MG of ativan IV. pt given banana bag. pt PMD is dr. Mikey puentes; case discussed with dr. Myers; he wants patient admitted to dr. lindsey . case discussed with dr. lindsey; accepts admission for ETOH withdrawal with Psych consult. impression; alcohol withdrawal, schizophrenia Admitted to telemetry with psychiatric consult - Lab Interpretations Lab Results: 07/06/17 10:10 07/06/17 10:10 Lab Results 07/06/17 12:20: Urine Opiates Screen Negative, Urine Methadone Screen Negative, Ur Barbiturates Screen Negative, Ur Phencyclidine Scrn Negative, Ur Amphetamines Screen Negative, U Benzodiazepines Scrn Negative, U Oth Cocaine Metabols Negative, U Cannabinoids Screen Negative 07/06/17 12:20: Urine Color Light yellow, Urine Appearance Clear, Urine pH 7.0, Ur Specific [place] 1.010, Urine Protein Negative, Urine Glucose (UA) Negative, Urine Ketones Negative, Urine Blood Negative, Urine Nitrate Negative, Urine Bilirubin Negative, Urine Urobilinogen 0.2, Ur Leukocyte Esterase Negative 07/06/17 10:10: Potassium Cancelled, Magnesium 1.5 L, Lactate Dehydrogenase 773 H, Total Creatine Kinase 460 H, CK-MB (CK-2) 2.9, CK-MB (CK-2) % Cancelled, Troponin I < 0.01 07/06/17 10:10: Alcohol, Quantitative < 10 07/06/17 10:10: Salicylates < 1 L, Acetaminophen < 10.0 L 07/06/17 10:10: Sodium 138, Potassium 3.5 L, Chloride 101, Carbon Dioxide 21, Anion Gap 19, BUN 9, Creatinine 0.7 L, Est GFR ( Amer) > 60, Est GFR (Non -Af Amer) > 60, Random Glucose 138 H, Calcium 9.5, Total Bilirubin 0.8, AST 192 H D, ALT 212 H, Alkaline Phosphatase 103, Total Protein 7.5, Albumin 4.4, Globulin 3.2, Albumin/Globulin Ratio 1.4 07/06/17 10:10: WBC 9.0, RBC 4.56, Hgb 15.8, Hct 43.7, MCV 95.8, MCH 34.6, MCHC 36.2, RDW 13.7, Plt Count 251, MPV 10.9, Gran % 78.5 H, Lymph % (Auto) 10.4 L, [place] % (Auto) 8.0 H, Eos % (Auto) 2.7, Baso % (Auto) 0.4, Gran # 7.03 H, Lymph # (Auto) 0.9 L, [place] # (Auto) 0.7 H, Eos # (Auto) 0.2, Baso # (Auto) 0.04 - RAD Interpretation Radiology Orders: 07/06/17 09:56 CHEST PORTABLE [RAD] Stat - Medication Orders Current Medication Orders: Multivitamins/Vitamin C 10 ml/Thiamine HCl 100 mg/ Folic Acid 1 mg/ Sodium Chloride 1,011.2 mls @ 100 mls/hr IV .Q10H7M MICH Last Admin: 07/06/17 17:00 Dose: 100 mls/hr eMAR Start Stop Document 07/06/17 17:00 DELISA (Rec: 07/06/17 18:18 [facility] [id number]) Intravenous Solution Start Date 07/06/17 Start Time 17:00 Lorazepam (Ativan) 1 mg IVP Q4H PRN PRN Reason: Symptoms of alcohol withdrawl Last Admin: 07/06/17 18:21 Dose: 1 mg IVP Administration Document 07/06/17 18:21 DELISA (Rec: 07/06/17 18:21 [facility] [id number]) Charges for Administration # of IVP Administrations 1 Ondansetron HCl (Zofran Inj) 4 mg IVP Q6 PRN PRN Reason: Nausea/Vomiting Pantoprazole Sodium (Protonix Inj) 40 mg IVP DAILY [facility] Sertraline HCl (Zoloft) 25 mg PO DAILY MICH Trazodone HCl (Desyrel) 100 mg PO DAILY MICH Ziprasidone (Geodon Cap) 20 mg PO BID MICH PRN Reason: Protocol Last Admin: 07/06/17 18:24 Dose: 20 mg Discontinued Medications Multivitamins/Vitamin C 10 ml/Thiamine HCl 100 mg/ Folic Acid 1 mg/ Sodium Chloride 1,011.2 mls @ 1,000 mls/hr IV .Q1H1M ONE Stop: 07/06/17 11:31 Last Admin: 07/06/17 11:34 Dose: 1,000 mls/hr eMAR Start Stop Document 07/06/17 11:34 SZA (Rec: 07/06/17 11:34 SZA [id number]) Intravenous Solution Start Date 07/06/17 Start Time 11:34 End Date 07/06/17 End time 12:34 Total Infusion Time 60 Magnesium Sulfate/Dextrose (Magnesium Sulfate 1 Gm/100 Ml D5w) 1 gm in 100 mls @ 100 mls/hr IVPB ONCE ONE Stop: 07/06/17 15:06 Last Admin: 07/06/17 14:45 Dose: 100 mls/hr eMAR Start Stop Document 07/06/17 14:45 SZA (Rec: 07/06/17 15:25 SZA [id number]) Intravenous Solution Start Date 07/06/17 Start Time 14:45 End Date 07/06/17 End time 15:45 Total Infusion Time 60 Lorazepam (Ativan) 2 mg IVP ONCE ONE PRN Reason: Protocol Stop: 07/06/17 10:33 Last Admin: 07/06/17 10:57 Dose: 2 mg IVP Administration Document 07/06/17 10:57 [facility] (Rec: 07/06/17 10:57 [id number]) Charges for Administration # of IVP Administrations 1 Potassium Chloride (K-Dur 20 Meq Er Tab) 40 meq PO STAT STA Stop: 07/06/17 14:09 Last Admin: 07/06/17 15:25 Dose: 40 meq Disposition/Present on Arrival - Present on Arrival Any Indicators Present on Arrival: No History of DVT/PE: No History of Uncontrolled Diabetes: No Urinary Catheter: No History of Decub. Ulcer: No History Surgical Site Infection Following: None - Disposition Have Diagnosis and Disposition been Completed?: Yes Diagnosis: Alcohol withdrawal Disposition: HOSPITALIZED Disposition Time: 13:30 Patient Plan: Admission Patient Problems: Current Active Problems Problem Status Onset Alcohol withdrawal Acute Condition: FAIR
[2017-07-06] MEDS ORDERED: Multivitamin (MVI) 10 ML, Thiamine 100 MG, Folic Acid 1 MG in Sodium Chloride 0.9% 1,00... IV SCH (15:30)
[2017-07-06 15:32] LABS: TROPONIN I < 0.01 ng/mL
[2017-07-06 15:36] LABS: CK-MB 2.9 ng/mL (0.0-3.6)
[2017-07-06] MEDS ORDERED: Potassium Chloride 20 mEq ER Tab PO ONE (21:30)
[2017-07-06] MEDS ORDERED: Magnesium Sulfate 2 GM in Sodium Chloride 0.9% 100 ML IVPB ONE (21:30)
[2017-07-06 22:36] LABS: TROPONIN I < 0.01 ng/mL
[2017-07-06 22:39] LABS: CK-MB 1.7 ng/mL (0.0-3.6)
[2017-07-06 22:49] VITALS: BMI 34.9
[2017-07-06] MEDS ORDERED: Pneumococcal 23-Valent Vaccine IM ONE (22:49)
[2017-07-06] MEDS ORDERED: Influenza Vaccine 60 mcg/0.5 mL SYR (4YR UP) IM ONE (22:49)
--- NOTE | 2017-07-06 22:51 | CARD ---
APPROVED REPORT EKG Measurement Heart [id number] ID [id number] <Conclusion> Sinus tachycardia Otherwise normal ECG
[2017-07-07 02:04] LABS: TROPONIN I < 0.01 ng/mL
[2017-07-07 02:10] LABS: CK-MB 1.6 ng/mL (0.0-3.6)
--- NOTE | 2017-07-07 06:46 | CP.PCM.PN ---
Subjective - Date & Time of Evaluation Date of Evaluation: 07/07/17 Time of Evaluation: 06:40 - Subjective Subjective: Patient was seen at bedside because nurse told that his blood pressure is 178/ 121. He had headache earlier. Now , he has lightheadedness. No other complaints. Medical record was reviewed. This 46 year old male was admitted with complaint of cold sweats and tremors, nausea, episode of bilious vomiting,hypokalemia. Has PMH of ETOH, schizoprenia, HTN, smoker. Objective - Vital Signs/Intake and Output Vital Signs (last 24 hours): Temp Pulse Resp BP Pulse Ox 97.6 F 85 20 178/121 H 98 07/07/17 06:00 07/07/17 06:00 07/07/17 06:00 07/07/17 06:00 07/07/17 06:00 Intake and Output: 07/06/17 07/07/17 18:59 06:59 Intake Total 660 Output Total 1500 Balance -840 - Medications Medications: Current Medications Chlordiazepoxide (Librium) 25 mg PO Q6 MICH PRN Reason: Taper Stop: 07/10/17 21:29 Last Admin: 07/07/17 05:42 Dose: 25 mg Chlordiazepoxide (Librium) 25 mg PO Q4H PRN PRN Reason: Withdrawl Clonidine HCl (Catapres) 0.1 mg PO Q4H PRN PRN Reason: Symptoms of alcohol withdrawl Folic Acid (Folic Acid) 1 mg PO DAILY MICH Haloperidol Lactate (Haldol) 2 mg IM Q8H PRN PRN Reason: Agitation Lorazepam (Ativan) 1 mg IVP Q4H PRN PRN Reason: Symptoms of alcohol withdrawl Last Admin: 07/06/17 18:21 Dose: 1 mg Multivitamins/Minerals (Therapeutic-M Tab) 1 tab PO DAILY [facility] Nicotine (Nicoderm Cq) 1 patch TD DAILY MICH Ondansetron HCl (Zofran Inj) 4 mg IVP Q4H PRN PRN Reason: Nausea/Vomiting Pantoprazole Sodium (Protonix Inj) 40 mg IVP DAILY MICH Sertraline HCl (Zoloft) 25 mg PO DAILY [facility] Thiamine HCl (Vitamin B1 Tab) 100 mg PO DAILY MICH Trazodone HCl (Desyrel) 100 mg PO DAILY MICH Ziprasidone (Geodon Cap) 20 mg PO BID MICH PRN Reason: Protocol Last Admin: 07/06/17 18:24 Dose: 20 mg - Labs Labs: Most Recent Lab Values WBC 9.0 10^3/ul (4.5-11.0) 07/06/17 10:10 RBC 4.56 10^6/uL (3.5-6.1) 07/06/17 10:10 Hgb 15.8 g/dL (14.0-18.0) 07/06/17 10:10 Hct 43.7 % (42.0-52.0) 07/06/17 10:10 MCV 95.8 fl (80.0-105.0) 07/06/17 10:10 MCH 34.6 pg (25.0-35.0) 07/06/17 10:10 MCHC 36.2 g/dl (31.0-37.0) 07/06/17 10:10 RDW 13.7 % (11.5-14.5) 07/06/17 10:10 Plt Count 251 10^3/uL (120.0-450.0) 07/06/17 10:10 MPV 10.9 fl (7.0-11.0) 07/06/17 10:10 Gran % 78.5 % (50.0-68.0) H 07/06/17 10:10 Lymph % (Auto) 10.4 % (22.0-35.0) L 07/06/17 10:10 [place] % (Auto) 8.0 % (1.0-6.0) H 07/06/17 10:10 Eos % (Auto) 2.7 % (1.5-5.0) 07/06/17 10:10 Baso % (Auto) 0.4 % (0.0-3.0) 07/06/17 10:10 Gran # 7.03 (1.4-6.5) H 07/06/17 10:10 Lymph # (Auto) 0.9 (1.2-3.4) L 07/06/17 10:10 [place] # (Auto) 0.7 (0.1-0.6) H 07/06/17 10:10 Eos # (Auto) 0.2 (0.0-0.7) 07/06/17 10:10 Baso # (Auto) 0.04 K/mm3 (0.0-2.0) 07/06/17 10:10 Sodium 138 mmol/L (132-148) 07/06/17 10:10 Potassium 3.5 mmol/L (3.6-5.0) L 07/06/17 10:10 Chloride 101 mmol/L (98-107) 07/06/17 10:10 Carbon Dioxide 21 mmol/L (21-33) 07/06/17 10:10 Anion Gap 19 (10-20) 07/06/17 10:10 BUN 9 mg/dL (7-21) 07/06/17 10:10 Creatinine 0.7 mg/dl (0.8-1.5) L 07/06/17 10:10 Est GFR ( Amer) > 60 07/06/17 10:10 Est GFR (Non-Af Amer) > 60 07/06/17 10:10 Random Glucose 138 mg/dL (70-110) H 07/06/17 10:10 Calcium 9.5 mg/dL (8.4-10.5) 07/06/17 10:10 Magnesium 1.5 mg/dL (1.7-2.2) L 07/06/17 10:10 Total Bilirubin 0.8 mg/dL (0.2-1.3) 07/06/17 10:10 AST 192 U/L (17-59) H D 07/06/17 10:10 ALT 212 U/L (7-56) H 07/06/17 10:10 Alkaline Phosphatase 103 U/L (38-126) 07/06/17 10:10 Lactate Dehydrogenase 773 U/L (333-699) H 07/06/17 10:10 Total Creatine Kinase 246 U/L (35-230) H 07/07/17 01:32 CK-MB (CK-2) 1.6 ng/mL (0.0-3.6) 07/07/17 01:32 CK-MB (CK-2) % Cancelled 07/06/17 10:10 Troponin I < 0.01 ng/mL 07/07/17 01:32 Total Protein 7.5 g/dL (5.8-8.3) 07/06/17 10:10 Albumin 4.4 g/dL (3.0-4.8) 07/06/17 10:10 Globulin 3.2 gm/dL 07/06/17 10:10 Albumin/Globulin Ratio 1.4 (1.1-1.8) 07/06/17 10:10 Urine Color Light yellow (YELLOW) 07/06/17 12:20 Urine Appearance Clear (CLEAR) 07/06/17 12:20 Urine pH 7.0 (4.7-8.0) 07/06/17 12:20 Ur Specific [place] 1.010 (1.005-1.035) 07/06/17 12:20 Urine Protein Negative mg/dL (<30 mg/dL) 07/06/17 12:20 Urine Glucose (UA) Negative mg/dL (NEGATIVE) 07/06/17 12:20 Urine Ketones Negative mg/dL (NEGATIVE) 07/06/17 12:20 Urine Blood Negative (NEGATIVE) 07/06/17 12:20 Urine Nitrate Negative (NEGATIVE) 07/06/17 12:20 Urine Bilirubin Negative (NEGATIVE) 07/06/17 12:20 Urine Urobilinogen 0.2 E.U./dL (<1 E.U./dL) 07/06/17 12:20 Ur Leukocyte Esterase Negative [place]/uL (NEGATIVE) 07/06/17 12:20 Salicylates < 1 mg/dL (2.0-20.0) L 07/06/17 10:10 Urine Opiates Screen Negative (NEGATIVE) 07/06/17 12:20 Urine Methadone Screen Negative (NEGATIVE) 07/06/17 12:20 Acetaminophen < 10.0 ug/ml (10.0-20.0) L 07/06/17 10:10 Ur Barbiturates Screen Negative (NEGATIVE) 07/06/17 12:20 Ur Phencyclidine Scrn Negative (NEGATIVE) 07/06/17 12:20 Ur Amphetamines Screen Negative (NEGATIVE) 07/06/17 12:20 U Benzodiazepines Scrn Negative (NEGATIVE) 07/06/17 12:20 U Oth Cocaine Metabols Negative (NEGATIVE) 07/06/17 12:20 U Cannabinoids Screen Negative (NEGATIVE) 07/06/17 12:20 Alcohol, Quantitative < 10 mg/dL (0-10) 07/06/17 10:10 - Constitutional Appears: Well, No Acute Distress - Head Exam Head Exam: ATRAUMATIC, NORMAL INSPECTION, NORMOCEPHALIC - Eye Exam Eye Exam: Normal appearance - ENT Exam ENT Exam: Normal External Ear Exam - Neck Exam Neck Exam: Normal Inspection - Respiratory Exam Respiratory Exam: NORMAL BREATHING PATTERN - Cardiovascular Exam Cardiovascular Exam: absent: JVD - GI/Abdominal Exam GI & Abdominal Exam: absent: Distended - Rectal Exam Rectal Exam: Deferred - Exam Additional comments: Deferred. - Extremities Exam Extremities Exam: Normal Inspection - Back Exam Back Exam: NORMAL INSPECTION - Neurological Exam Neurological Exam: Alert, Awake - Psychiatric Exam Psychiatric exam: Normal Affect, Normal Mood - Skin Skin Exam: Normal Color Assessment and Plan - Assessment and Plan (Free Text) Assessment: Elevated blood pressure reading. ETOH. Schizophrenia. HTN. Plan: Clonidine 0.2 mg PO now. Recheck BP in one hour --->134/90.
[2017-07-07 07:01] LABS: BASO # 0.03 K/mm3 (0.0-2.0); BASO % 0.3 % (0.0-3.0); EOS # 0.6 (0.0-0.7); EOS % 7.2 % (1.5-5.0); GRAN # 5.77 (1.4-6.5); GRAN % 65.9 % (50.0-68.0); HEMOGLOBIN 15.1 g/dL (14.0-18.0); LYMPH # 1.5 (1.2-3.4); LYMPH % 16.9 % (22.0-35.0); MEAN CELL VOLUME 96.9 fl (80.0-105.0); MEAN CORPUSCULAR HEMOGLOBIN 33.7 pg (25.0-35.0); MEAN CORPUSCULAR HGB CONC 34.8 g/dl (31.0-37.0); MEAN PLATELET VOLUME 10.4 fl (7.0-11.0); MONO # 0.9 (0.1-0.6); MONO % 9.7 % (1.0-6.0); RBC 4.48 10^6/uL (3.5-6.1); RED CELL DISTRIBUTION WIDTH 13.7 % (11.5-14.5); WHITE BLOOD COUNT 8.8 10^3/ul (4.5-11.0)
[2017-07-07 07:21] LABS: INR 1.05 (0.93-1.08); PROTHROMBIN TIME 12.1 SECONDS (9.4-12.5)
[2017-07-07 07:23] LABS: TROPONIN I < 0.01 ng/mL
[2017-07-07 07:28] LABS: PARTIAL THROMBOPLASTIN TIME 26.8 Seconds (25.1-36.5)
[2017-07-07 07:29] LABS: FREE T4 0.97 ng/dL (0.78-2.19); T4 7.6 ug/dL (5.5-11.0)
[2017-07-07 07:38] LABS: LDL CHOLESTEROL 82 mg/dL (0-129)
[2017-07-07 07:42] LABS: ALB/GLOB RATIO 1.3 (1.1-1.8); ALT/SGPT 163 U/L (7-56); AST/SGOT 136 U/L (17-59); BILIRUBIN,DIRECT 0.4 mg/dL (0.0-0.4); BLOOD UREA NITROGEN 9 mg/dL (7-21); CALCIUM 8.9 mg/dL (8.4-10.5); GFR AFRICAN-AMERICAN > 60; GFR NON-AFRICAN AMERICAN > 60; HDL CHOLESTEROL 78 mg/dL (29-60)
[2017-07-07] MEDS ORDERED: Potassium Chloride 20 mEq ER Tab PO ONE (07:43)
--- NOTE | 2017-07-07 10:23 | CP.PCM.PN ---
Subjective - Date & Time of Evaluation Date of Evaluation: 07/07/17 Time of Evaluation: 09:15 - Subjective Subjective: PGY1 Medicine Note for Dr. Manzo Patient seen and examined at bedside. Patient was hypertensive overnight so clonidine was started. Patient has no complaints today. He does wish to be voluntarily admitted to psych after medically stabilized. He wants help coping with schizophrenia and would like to quit drinking. Objective - Vital Signs/Intake and Output Vital Signs (last 24 hours): Temp Pulse Resp BP Pulse Ox 97.6 F 85 20 134/90 98 07/07/17 06:00 07/07/17 06:00 07/07/17 06:00 07/07/17 06:58 07/07/17 06:00 Intake and Output: 07/07/17 07/07/17 06:59 18:59 Intake Total 660 1000 Output Total 1500 Balance -840 1000 - Medications Medications: Current Medications Chlordiazepoxide (Librium) 25 mg PO Q6 MICH PRN Reason: Taper Stop: 07/10/17 21:29 Last Admin: 07/07/17 05:42 Dose: 25 mg Chlordiazepoxide (Librium) 25 mg PO Q4H PRN PRN Reason: Withdrawl Clonidine HCl (Catapres) 0.1 mg PO Q4H PRN PRN Reason: Symptoms of alcohol withdrawl Folic Acid (Folic Acid) 1 mg PO DAILY MICH Haloperidol Lactate (Haldol) 2 mg IM Q8H PRN PRN Reason: Agitation Lorazepam (Ativan) 1 mg IVP Q4H PRN PRN Reason: Symptoms of alcohol withdrawl Last Admin: 07/06/17 18:21 Dose: 1 mg Multivitamins/Minerals (Therapeutic-M Tab) 1 tab PO DAILY [facility] Nicotine (Nicoderm Cq) 1 patch TD DAILY MICH Ondansetron HCl (Zofran Inj) 4 mg IVP Q4H PRN PRN Reason: Nausea/Vomiting Pantoprazole Sodium (Protonix Inj) 40 mg IVP DAILY M[facility] Sertraline HCl (Zoloft) 25 mg PO DAILY [facility] Thiamine HCl (Vitamin B1 Tab) 100 mg PO DAILY MICH Trazodone HCl (Desyrel) 100 mg PO HS PRN PRN Reason: Sleep Ziprasidone (Geodon Cap) 20 mg PO BID MICH PRN Reason: Protocol - Labs Labs: 07/07/17 06:15 07/07/17 06:15 PT 12.1 SECONDS (9.4-12.5) 07/07/17 06:15 INR 1.05 (0.93-1.08) 07/07/17 06:15 APTT 26.8 Seconds (25.1-36.5) 07/07/17 06:15 - Constitutional Appears: No Acute Distress - Head Exam Head Exam: ATRAUMATIC, NORMOCEPHALIC - Eye Exam Eye Exam: EOMI, Normal appearance Pupil Exam: PERRL - ENT Exam ENT Exam: Mucous Membranes Moist - Respiratory Exam Respiratory Exam: Clear to Ausculation Bilateral, NORMAL BREATHING PATTERN - Cardiovascular Exam Cardiovascular Exam: REGULAR RHYTHM, +S1, +S2 - GI/Abdominal Exam GI & Abdominal Exam: Soft, Normal Bowel Sounds. absent: Tenderness - Extremities Exam Additional comments: mild tremor - Neurological Exam Neurological Exam: Alert, Awake, CN II-XII Intact, Oriented x3 - Psychiatric Exam Psychiatric exam: Normal Affect, Normal Mood - Skin Skin Exam: Dry, Intact, Normal Color, Warm Assessment and Plan - Assessment and Plan (Free Text) Plan: 46 M with PMH of Schizophrenia and EtOH abuse that presents for EtOH withdrawal EtOH withdrawal CIWA protocol Aspiration precautions Seizure precautions Fall risk Banana bad Ativan PRN Librium Taper MVM folic acid Thiamine Clonidine Schizophrenia Geodon 20 mg PO BID Trazodone 100 mg PO HS Zoloft 25 mg po daily Psych consult, Dr. Patel, help appreciated HTN Clonidine Prophylaxis SCDs Protonix Discussed with Dr. Anais Medrano PGY1
[2017-07-07] MEDS: Multivitamin With Minerals Tab PO SCH (10:58)
[2017-07-07] MEDS: Potassium Chloride 20 mEq ER Tab PO SCH (12:08)
[2017-07-07] MEDS: Magnesium Oxide 400 mg Tab UD PO SCH ×2 (12:08→18:04)
[2017-07-08 00:22] VITALS: RESP 20
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
--- NOTE | 2017-07-08 02:02 | PN ---
DATE: 07/07/2017 SUBJECTIVE: The patient is seen in room 377, bed 1. Patient was made to stand up and sit. Patient is still tremulous and anxious. Patient's overnight nurse's notes were reviewed. Telemetry shows normal sinus rhythm. PHYSICAL EXAMINATION: VITAL SIGNS: T-max . Telemetry shows sinus rhythm, heart rate 80s, 90s, 86. Blood pressure 156/80, 154/105, 178/121, 134/90, 164/120. Respirations 16, O2 sat 100%. HEENT: Patient's head examination is normocephalic, atraumatic. HEENT examination shows pink conjunctivae. Anicteric sclerae. Dry oral mucosa. NECK: No neck rigidity. CHEST: Symmetrical. LUNGS: Shows no rales, crackles or wheezing. CARDIOVASCULAR: Shows S1, S2, regular rhythm. ABDOMEN: Soft. Positive bowel sounds. Obese. No hepatosplenomegaly appreciated on gross palpation. MUSCULOSKELETAL: Shows a body mass index of 37.5. NEUROLOGIC: Patient is alert, awake, oriented x3. Positive tremulous noted and shakiness noted of the upper extremity. Gait examination is not tested. DIAGNOSTICS: On 07/07/2017, CBC is within normal limit. Chemistry is abnormal for potassium of 3.5. AST 136, ALT 163. CPK is down to 206. All troponin three sets are negative. Cholesterol 178, LDL 82, HDL 78. Thyroid profile is within normal limits. IMPRESSION AND PLAN: 1. Acute alcohol withdrawal and delirium tremens, severely symptomatic. 2. Uncontrolled hypertension secondary to alcohol withdrawal and delirium tremens. 3. Granulocytosis. 4. Hypokalemia. 5. Alcoholic hepatitis and transaminitis. 6. Hypomagnesemia. 7. Mild rhabdomyolysis with elevated CPK. 8. Morbid obesity. 9. Morbid obesity with elevated body mass index of greater than 37. 10. Sinus tachycardia. 11. Alcohol addiction and dependence. 12. Nicotine addiction and dependence. 13. History of anxiety, depression and insomnia. 14. Anxiety, depression. Plan at this time, patient has been ordered repeat labs. Awaiting Psychiatry evaluation. Patient is on an Ativan 1 mg IV q.4 p.r.n. Patient is started on clonidine 0.1 mg every 8 hours [id number] and clonidine 0.1 mg q.4 hours p.r.n. Patient is on trazodone 100 mg at bedtime p.r.n., folic acid 1 mg daily; Geodon 40 mg twice a day, which is ordered and changed by the psychiatric nurse practitioner. Patient's trazodone is made 100 mg p.o. at bedtime p.r.n. Patient is on Haldol 2 mg IM q.8 hours p.r.n. Patient has been given potassium supplementation. Patient is on Librium p.r.n. protocol, magnesium oxide 400 twice a day. Patient was given magnesium sulfate riders yesterday. Patient is on nicotine patch 21 mg daily, Protonix 40 mg daily, multivitamin 1 tablet daily, thiamine 100 mg p.o. daily, Zofran 4 mg IV q.4 p.r.n. and Zoloft 25 mg daily. Patient is on alcohol withdrawal protocol. Patient has been ordered JAQUELINE stockings, DVT prophylaxis. Patient was seen by the psychiatric nurse practitioner. Patient is in agreement to go to Psychiatry floor after medically stable. Patient will be optimized about his medical care and once medically stable, patient will be discharged to Psychiatry floor. Dictated and electronically signed, not read. Gordy Manzo MD
[2017-07-08 07:22] LABS: BASO # 0.03 K/mm3 (0.0-2.0); BASO % 0.4 % (0.0-3.0); EOS # 0.6 (0.0-0.7); EOS % 7.2 % (1.5-5.0); GRAN # 5.64 (1.4-6.5); GRAN % 67.1 % (50.0-68.0); LYMPH # 1.5 (1.2-3.4); MEAN CELL VOLUME 97.3 fl (80.0-105.0); MEAN CORPUSCULAR HEMOGLOBIN 33.5 pg (25.0-35.0); MEAN CORPUSCULAR HGB CONC 34.4 g/dl (31.0-37.0); MEAN PLATELET VOLUME 10.6 fl (7.0-11.0); MONO # 0.6 (0.1-0.6); MONO % 7.3 % (1.0-6.0); RBC 4.48 10^6/uL (3.5-6.1); RED CELL DISTRIBUTION WIDTH 13.6 % (11.5-14.5); WHITE BLOOD COUNT 8.4 10^3/ul (4.5-11.0)
[2017-07-08 07:40] LABS: ALB/GLOB RATIO 1.3 (1.1-1.8); ALBUMIN 3.9 g/dL (3.0-4.8); ALT/SGPT 183 U/L (7-56); AST/SGOT 194 U/L (17-59); BILIRUBIN,DIRECT 0.5 mg/dL (0.0-0.4); BLOOD UREA NITROGEN 14 mg/dL (7-21); CALCIUM 9.6 mg/dL (8.4-10.5); GFR AFRICAN-AMERICAN > 60; GFR NON-AFRICAN AMERICAN > 60
[2017-07-08] MEDS: Magnesium Oxide 400 mg Tab UD PO SCH ×2 (09:26→18:10)
[2017-07-08] MEDS: Pantoprazole 40 mg EC Tab PO SCH (09:26)
[2017-07-08] MEDS: Potassium Chloride 20 mEq ER Tab PO SCH (09:26)
[2017-07-08] MEDS: Multivitamin With Minerals Tab PO SCH (09:27)
--- NOTE | 2017-07-08 16:54 | PN ---
DATE: 07/08/2017 He is being seen today for a followup consultation. PRESENTATION: The patient is a 46-year-old male seen at bedside. The patient originally came to the hospital on 07/06/2017, and was admitted for alcohol abuse. He was withdrawing from alcohol. He drinks at least 6 pegs of liquor everyday and he was admitted to the hospital for alcohol withdrawal. Psychiatric consult was called due to concerns that the client being schizophrenic. This patient is known to me. I had seen him on a previous admission. He came with the same scenario on 06/16/2017. This time, the patient indicates that he needs treatment for his alcoholism. He has to stop drinking. He does understand a relationship between his mental health symptoms and alcohol indicating that he was sober for a period of time of 15 years. Over the last year and a half, he started drinking and then drinking heavily recently and when he drinks, he starts to have psychotic symptoms. He has been in mental health treatment for about 8 years at [facility]. He goes there every 3 months for medication management. He does understand he needs more treatment and support. He works. 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 He was willing to sign into the psychiatric unit and seek appropriate outpatient treatment following that. He was motivated for this. The patient's appearance from yesterday to today is much better. He is significantly less tremulous. He is clear in his thoughts. I had increased his Geodon yesterday and the patient indicates that he feels that the medication is making him feel better. I also increased his Librium today from Librium 25 mg p.o. t.i.d. to q.i.d. in preparation for him being transferred to the psychiatric unit tomorrow. He is voluntary and motivated. OBJECTIVE: VITAL SIGNS: The patient's current vital signs include temperature of 97.9, pulse rate of 84, blood pressure still high at 163/119, and respiratory rate of 20. MEDICATIONS: The patient's current medications in terms of his withdrawal and his psychiatric status are Librium 25 mg q. 4 hours p.r.n., which he received on the last time as a p.r.n. on 07/07/2017. He continues on Librium 25 mg one p.o. q.i.d.. Clonidine 0.1 mg every 8 hours and every 4 hours p.r.n.; folic acid; Ativan 1 mg IV push q. 4 hours as needed, last time it was given was on 07/07/2017; Zoloft 25 mg daily; thiamine; and trazodone 100 mg at bedtime as needed, he did take that last night. MENTAL STATUS EXAM: The patient is alert. He is oriented x3. His eye contact is good and his behavior is pleasant and cooperative. His speech rate and volume are within normal limits. Mood is improving. Affect is full. Thoughts are goal directed, but somewhat simplistic. He denies being suicidal or homicidal. Denies the presence of hallucinations, delusions, or paranoia. His concentration and his focus are slightly scattered, but the patient states he is starting to feel normal in terms of his thought processes. His memory both short and long-term appears to be adequate. His appetite and sleep are normalizing. PLAN: The patient appears to be stabilizing medically in terms of his withdrawal. The plan is for him to be transferred to the psychiatric unit tomorrow. We discussed some treatment goals and family involvement, both of which the patient is very much wanting. He has reached a point where he wants to handle his alcohol problem, get back to having his psychiatric symptoms stabilized, so that he can enjoy his life. He indicates since he started drinking again, he really has not been. Psychiatry will continue to follow and the plan would be to transfer him tomorrow. Thank you for the consult. Carolyn Bailon APN
[2017-07-09 07:30] LABS: BASO # 0.03 K/mm3 (0.0-2.0); BASO % 0.4 % (0.0-3.0); EOS # 0.5 (0.0-0.7); EOS % 6.3 % (1.5-5.0); GRAN # 5.62 (1.4-6.5); GRAN % 67.5 % (50.0-68.0); HEMOGLOBIN 14.2 g/dL (14.0-18.0); LYMPH # 1.5 (1.2-3.4); LYMPH % 17.9 % (22.0-35.0); MEAN CELL VOLUME 99.1 fl (80.0-105.0); MEAN CORPUSCULAR HEMOGLOBIN 33.3 pg (25.0-35.0); MEAN CORPUSCULAR HGB CONC 33.6 g/dl (31.0-37.0); MEAN PLATELET VOLUME 10.9 fl (7.0-11.0); MONO # 0.7 (0.1-0.6); MONO % 7.9 % (1.0-6.0); RBC 4.27 10^6/uL (3.5-6.1); RED CELL DISTRIBUTION WIDTH 13.9 % (11.5-14.5); WHITE BLOOD COUNT 8.3 10^3/ul (4.5-11.0)
[2017-07-09 07:43] LABS: ALB/GLOB RATIO 1.3 (1.1-1.8); ALBUMIN 3.8 g/dL (3.0-4.8); ALT/SGPT 255 U/L (7-56); AST/SGOT 292 U/L (17-59); BILIRUBIN,DIRECT 0.5 mg/dL (0.0-0.4); BLOOD UREA NITROGEN 16 mg/dL (7-21); CALCIUM 9.6 mg/dL (8.4-10.5); GFR AFRICAN-AMERICAN > 60; GFR NON-AFRICAN AMERICAN > 60
[2017-07-09] MEDS: Pantoprazole 40 mg EC Tab PO SCH (08:26)
[2017-07-09] MEDS: Potassium Chloride 20 mEq ER Tab PO SCH (08:29)
[2017-07-09 09:54] VITALS: BP 118/83; TEMP 97.4; O2SAT 96
[2017-07-09] MEDS: Magnesium Oxide 400 mg Tab UD PO SCH (10:19)
[2017-07-09] MEDS: Multivitamin With Minerals Tab PO SCH (10:21)
[2017-07-09 10:25] VITALS: PULSE 83
--- NOTE | 2017-07-09 10:32 | PN ---
DATE: 07/08/2017 HISTORY AND HOSPITAL COURSE: The patient is seen in room 377, bed 1. The patient states that he is feeling better. The patient was made to sit up from the lying position and made to stand up. The patient has almost complete resolution of the tremors of the upper extremity. The patient states that he is feeling much better. There is no sweating. There is no chest pain. There is no shortness of breath noted. Overnight nurse's notes were reviewed. The patient was found to be alert, awake, oriented x3. Telemetry shows sinus rhythm. PHYSICAL EXAMINATION: VITAL SIGNS: T-max 97, heart rate averaging in the last 24 hours 80, 85, 95, 84, 74, 70, 85. Blood pressure was elevated because patient was not getting his clonidine, which was ordered p.r.n. and round the clock. The patient's blood pressure in the last 24 hours 142/104, down to 158/118, down to 162/89, down to 141/99, respiration 20, O2 sat 98% to 100%. HEENT: Head: Examination is normocephalic, atraumatic. HEENT examination shows pink conjunctivae. Anicteric sclerae. No oropharyngeal lesion. No neck rigidity. CHEST: Examination kyphosis. LUNGS: Examination shows no rales, crackles, or wheezing. CARDIOVASCULAR: Examination is S1, S2, regular rhythm. ABDOMEN: No rales, crackles, or wheezing. Abdomen is obese, protuberant. Positive bowel sounds. No hepatosplenomegaly noted. GENITALIA: Male. RECTAL: Examination is deferred. EXTREMITIES: Shows no pitting edema, no calf numbness, no Homans sign. Upper extremity shows no visible tremors of the upper extremity noted. Gait examination is independent. MUSCULOSKELETAL: Examination shows a body mass index of 36. NEUROLOGIC: The patient is alert, awake, oriented x3. Cranial nerves II through XII grossly intact. DIAGNOSTICS: 07/08/2017, WBC 8.4, hemoglobin/hematocrit 15 and 43.6, platelet 209. Sodium 138, potassium 4.0, chloride 104, CO2 of 25, anion gap 13, BUN 14, creatinine 0.8, GFR greater than 60, glucose 100, calcium 9.6, magnesium 2.2, direct bili 0.5, AST 194, ALT 183. Rest of the LFTs are normal. IMPRESSION AND PLAN: 1. Acute alcohol withdrawal and delirium tremens resolving. 2. Uncontrolled hypertension secondary to alcohol withdrawal and delirium tremens. 3. Resolving systolic and diastolic hypertension. 4. Morbid obesity with elevated body mass index of 36.4. 5. History of hallucination. 6. Alcohol dependence and alcohol binging. 7. Anxiety disorder. 8. Alcohol use disorder, ongoing severe and chronic. 9. Schizophrenia. 10. Tachycardia. 11. Hypertension, slowly resolving. 12. Tachycardia. 13. Granulocytosis. 14. Hypokalemia. 15. Transaminitis. 16. Hypomagnesemia. 17. Insomnia. 18. Hypertension. 19. Hypokalemia. 20. Hypomagnesemia. PLAN: At this time, the patient was seen by Psychiatry, recommend inpatient psychiatric hospitalization, which patient agrees to. CURRENT MEDICATIONS: 1. Ativan 1 mg IV q. 4 p.r.n. 2. Clonidine 0.1 mg p.o. q. 4 p.r.n. and clonidine 0.1 mg q. 8 hours round the clock. 3. Trazodone 100 mg at bedtime p.r.n. 4. Folic acid 1 mg daily. 5. Geodon 40 mg twice a day. 6. Haldol 2 mg IM q. 8 p.r.n. 7. The patient was given potassium supplementation. 8. Librium 25 mg q. 4 p.r.n. and Librium 25 mg three times a day 9. Magnesium 400 twice a day. 10. Nicotine patch 21 mg daily. 11. Protonix 40 mg daily. 12. Multivitamin 1 tablet daily. 13. Thiamine 100 mg daily. 14. Zofran 4 mg IV q. 4 p.r.n. 15. Zoloft 25 mg daily. The patient is on alcohol withdrawal protocol, out of bed. SCDs, DVT prophylaxis, physical therapy, occupational therapy evaluation ordered. The patient will be discharged to Psychiatry Unit when accepted by the psychiatrist. The patient may require a total of 48 to 72 hours of acute care hospitalization. The patient is on 48 hour. TREATMENT: Inpatient. Dictated and electronically signed, not read. Gordy Manzo MD [facility] # [id number]
--- NOTE | 2017-07-09 10:33 | CP.PCM.PCO ---
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 07/09/17 10:33
--- NOTE | 2017-07-09 11:18 | CP.PCM.PN ---
Subjective - Date & Time of Evaluation Date of Evaluation: 07/09/17 Time of Evaluation: 11:56 - Subjective Subjective: Medicine Note for Dr. Manzo Patient seen and examined. No acute event overnight. Patient has no complaints today. His blood pressure has stabilized. Patient originally agreed to be voluntary admission to psych but is nable to use cell phone as per psych inpatient policy so he declined to be admitted. Patient states he would like to leave against medical advice. Patient was seen by Dr. Manzo today. The risks and consequences of leaving were explained in detail to the patinet including worsening condition, suicidal/homicidal ideation, psychotic episodes, and auditory/visual hallucinations. Patient aware of his psychiatric/medical condition and has been informed about these condition in laymen's terms. All appropriate paperwork has been filled out and witnessed by nursing staff. Objective - Vital Signs/Intake and Output Vital Signs (last 24 hours): Temp Pulse Resp BP Pulse Ox 97.4 F L 83 20 118/83 96 07/09/17 06:00 07/09/17 10:22 07/09/17 06:00 07/09/17 10:22 07/09/17 06:00 Intake and Output: 07/09/17 07/09/17 06:59 18:59 Intake Total 240 Balance 240 - Medications Medications: Current Medications Chlordiazepoxide (Librium) 25 mg PO Q4H PRN PRN Reason: Withdrawl Last Admin: 07/07/17 16:29 Dose: 25 mg Chlordiazepoxide (Librium) 25 mg PO BID [facility] PRN Reason: Taper Stop: 07/10/17 21:29 Last Admin: 07/09/17 10:19 Dose: 25 mg Clonidine HCl (Catapres) 0.1 mg PO Q8H [facility] Last Admin: 07/08/17 20:00 Dose: Not Given Clonidine HCl (Catapres) 0.1 mg PO Q4H PRN PRN Reason: Symptoms of alcohol withdrawl Last Admin: 07/08/17 09:46 Dose: 0.1 mg Folic Acid (Folic Acid) 1 mg PO DAILY [facility] Last Admin: 07/09/17 10:23 Dose: 1 mg Haloperidol Lactate (Haldol) 2 mg IM Q8H PRN PRN Reason: Agitation Lorazepam (Ativan) 1 mg IVP Q4H PRN PRN Reason: Symptoms of alcohol withdrawl Last Admin: 07/07/17 14:43 Dose: 1 mg Losartan Potassium (Cozaar) 50 mg PO DAILY [facility] Last Admin: 07/09/17 10:22 Dose: 50 mg Magnesium Oxide (Mag-Ox) 400 mg PO BID [facility] Last Admin: 07/09/17 10:19 Dose: 400 mg Multivitamins/Minerals (Therapeutic-M Tab) 1 tab PO DAILY [facility] Last Admin: 07/09/17 10:21 Dose: 1 tab Nicotine (Nicoderm Cq) 1 patch TD DAILY [facility] Last Admin: 07/09/17 10:20 Dose: 1 patch Ondansetron HCl (Zofran Inj) 4 mg IVP Q4H PRN PRN Reason: Nausea/Vomiting Pantoprazole Sodium (Protonix Ec Tab) 40 mg PO ACB [facility] Last Admin: 07/09/17 08:26 Dose: 40 mg Potassium Chloride (K-Dur 20 Meq Er Tab) 20 meq PO BRK [facility] Last Admin: 07/09/17 08:29 Dose: 20 meq Sertraline HCl (Zoloft) 25 mg PO DAILY [facility] Last Admin: 07/09/17 10:21 Dose: 25 mg Thiamine HCl (Vitamin B1 Tab) 100 mg PO DAILY [facility] Last Admin: 07/09/17 10:21 Dose: 100 mg Trazodone HCl (Desyrel) 100 mg PO HS PRN PRN Reason: Sleep Last Admin: 07/08/17 22:36 Dose: 100 mg Ziprasidone (Geodon Cap) 40 mg PO BID [facility] PRN Reason: Protocol Last Admin: 07/09/17 10:23 Dose: 40 mg - Labs Labs: 07/09/17 06:45 07/09/17 06:45 PT 12.1 SECONDS (9.4-12.5) 07/07/17 06:15 INR 1.05 (0.93-1.08) 07/07/17 06:15 APTT 26.8 Seconds (25.1-36.5) 07/07/17 06:15 - Constitutional Appears: No Acute Distress - Head Exam Head Exam: ATRAUMATIC, NORMOCEPHALIC - Eye Exam Eye Exam: EOMI, Normal appearance Pupil Exam: PERRL - ENT Exam ENT Exam: Mucous Membranes Moist - Respiratory Exam Respiratory Exam: Clear to Ausculation Bilateral, NORMAL BREATHING PATTERN - Cardiovascular Exam Cardiovascular Exam: REGULAR RHYTHM, +S1, +S2 - GI/Abdominal Exam GI & Abdominal Exam: Soft, Normal Bowel Sounds. absent: Tenderness - Extremities Exam Extremities Exam: Normal Capillary Refill - Back Exam Back Exam: absent: CVA tenderness (L), CVA tenderness (R) - Neurological Exam Neurological Exam: Alert, Awake, CN II-XII Intact, Oriented x3 - Psychiatric Exam Psychiatric exam: Normal Affect, Normal Mood - Skin Skin Exam: Dry, Intact, Normal Color, Warm
--- NOTE | 2017-07-09 11:28 | PN ---
DATE: FOLLOWUP NOTE SUBJECTIVE: In short, the patient is a 46-year-old male with history of alcohol abuse, history of schizophrenia. The patient was admitted on the medical side for evaluation and stabilization of alcohol withdrawal syndrome. Psych consult was called because the patient has history of mental illness and the patient is on psychotropic medications. The patient was seen by nurse practitioner. The patient was offered psychiatric inpatient stabilization. Initially, the patient was willing to sign in, but the patient refused to do so today. The patient was seen and examined, discussed with the nursing staff as well as primary physician, Dr. Manzo. The patient said that he does not want to go into the psychiatric inpatient unit because it will remind him about his incarceration where the patient states that "I was in longterm for many years and I do not to be in that setting anymore." The patient said that he will be fine. He had the symptoms of depression as well as some vivid dreams about devil because he relapsed on alcohol. The patient reported that he is willing to stop drinking. The patient said that he has followup appointments scheduled with a psychiatrist, Dr. Thomas this Thursday. The patient reported being compliant with the medication, Geodon 40 mg twice a day as well as Zoloft and trazodone. The patient reported that his withdrawal symptoms are much better. He wants to be discharged and this is the patient's right. At the same time, the patient would greatly benefit from the psychiatric inpatient admission, but the patient chose not to. The patient does not meet the criteria for screening process. The patient might be discharged against medical advice. The patient has capacity to do so. Vital signs are stable. Pulse is 83, blood pressure 118/83, respirations 20, oxygen saturation is 96. Medications reviewed. Librium 25 mg twice a day, Catapres 0.1 mg 8 hours scheduled, folic acid, multivitamins, thiamine, Nicoderm, the patient is on Zoloft 25 mg daily, trazodone 100 mg at the nighttime and Geodon 40 mg twice a day. Labs reviewed, seems to be within normal limits. Chemistry reviewed. AST and ALT are trending down, but today is elevated, 292 and 255 respectively. Toxicology negative for any substances. MENTAL STATUS EXAMINATION: The patient presented to be alert and oriented, pleasant, superficially cooperative. Intense eye contact at times. Mood described I am fine, I want to go home. Affect was constricted. Thought process seems to be coherent and goal directed. Thought content, the patient denied visual, auditory, tactile hallucinations, but reported to have vivid dreams about devil. The patient denied any command-type hallucinations. The patient denied thoughts of harming himself or others. Denied intent or plan. Insight and judgment seems to be improving. Impulses are well controlled. As per nursing report, the patient does not have any agitation or aggression. Compliant with the medication and units rules and regulations. IMPRESSION: As per history, the patient has schizophrenia, rule out schizoaffective disorder, alcohol use disorder, alcohol withdrawal syndrome, which is improving. PLAN: The patient was offered psych admission, but the patient declined that offer. The patient was advised to take medication as it was prescribed. The patient verbalized understanding. The patient reported to tolerate medications well. No side effects. AIMS zero, no EPS. The patient said that he has appointment with his psychiatrist, Dr. Thomas on this coming Thursday. The patient was advised to keep that appointment. Multivitamins, thiamine and folic acid should be continued. Geodon 40 mg twice a day should be continued. Zoloft 25 mg a day should be continued. Trazodone 100 mg at the nighttime should be continued. The patient might benefit from the psychiatric inpatient, but the patient declined that offer. The patient does not meet the criteria for initiation of involuntary commitment and screening process. The patient might be discharged against medical advice. Should you have any questions, give me a call back. The patient pose no imminent danger to self or others. Should you have any questions, give me a call back. Deysi Patel MD
--- NOTE | 2017-07-10 16:54 | DS ---
FINAL PROGRESS NOTE AND DISCHARGE SUMMARY HISTORY OF PRESENT ILLNESS: The patient signed out against medical advice on 07/09/2017. The patient refused voluntary sign into Psychiatry. The patient stated to the psychiatrist that the psych unit is like a shelter where he has already spent 10 years and the patient declined to go to Psychiatry. The patient was seen and evaluated in the morning. Overnight nurse's notes were reviewed. The patient slept well without any withdrawal symptoms. The patient was examined without any shakiness ,without tremulousness, without anxiety. Later on, the patient was seen by the social work lecturer, and the case management, and the psychiatrist. The patient refused transfer to Behavioral Unit because the patient cannot use his cell phone. The patient stated that it is like a shelter. The patient wants to leave against medical advice. PHYSICAL EXAMINATION: VITAL SIGNS: T-max 98.7, 97.4; pulse rate 74, 83, 84; blood pressure 118/83, 123/85; respiration 20, O2 sat 96%. HEAD: Normocephalic, atraumatic. HEENT: Shows pink conjunctivae. Anicteric sclerae. No oropharyngeal lesion. NECK: No neck rigidity. CHEST: Kyphosis. LUNGS: Shows no rales, crackles or wheezing. CARDIOVASCULAR: S1, S2, regular rhythm. ABDOMEN: Morbidly obese. No hepatosplenomegaly noted. No guarding, no rigidity, no rebound tenderness. GENITALIA: Male. RECTAL: Deferred. EXTREMITY: Shows no pitting edema, no calf tenderness, no Homans signs. No tremulous noted. Motor strength is 5/5. Romberg sign is negative. MUSCULOSKELETAL: Shows a body mass index of 36. Cranial nerves II-XII intact grossly. NEUROLOGIC: The patient is alert, awake, oriented x3. DIAGNOSTICS: 07/09; WBC 8.3, hemoglobin/hematocrit 14.2/42.3, platelets 198. Sodium 140, potassium 4.2, chloride 106, CO2 of 26, anion gap 12, BUN 16, creatinine 0.8, GFR greater than 60, glucose 88, calcium is 9.6, magnesium 2.2, total bilirubin 1.4, direct bilirubin 0.5, AST 292, ALT 255. The patient is seen by Psychiatry. The patient refused to sign to Psych Unit. 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 The patient expresses interest to signed out against medical advice and follow up with the psychiatrist within next few days. IMPRESSION AND PLAN: 1. Schizophrenia. 2. Possible schizoaffective disorder. 3. Alcohol use disorder. 4. Alcohol addiction dependence and alcohol binging. 5. Alcohol withdrawal syndrome (resolved). 6. Hypertension. 7. Morbid obesity. 8. Tachycardia. 9. History of alcohol abuse. 10. History of multiple inpatient psychiatric treatment. 12. Poor compliance and noncompliance. 13. History of anxiety, depression, insomnia. PLAN: At this time, the patient wishes to sign out against medical advice and the patient refuses to go to Psychiatry. At present, the patient's current medications are as follows; 1. Ativan 1 mg IV q. 4 hours p.r.n. 2. Clonidine 0.1 mg p.o. q. 8 hours. 3. Clonidine 0.1 mg q. 4 hours. p.r.n. 4. Cozaar 50 mg daily. 5. Desyrel (trazodone) 100 mg at bedtime p.r.n. 6. Folic acid 1 mg p.o. daily. 7. Geodon 40 mg twice a day. 8. Haldol 2 mg IM q. 8 hours. p.r.n. 9. K-Dur 20 mEq p.o. daily. 10. Librium 25 mg twice a day twice a day and Librium 25 mg q. 8 p.r.n. 11. Magnesium oxide 400 twice a day. 12. Nicotine patch 21 mg daily. 13. Protonix 40 mg daily. 14. Multivitamin 1 tablet daily. 15. Thiamine 100 mg daily. 16. Zofran 4 mg IV q. 4 hours p.r.n. 17. Zoloft 25 mg daily. At present, the patient was cleared for discharge to Psychiatry , but the patient refused. The patient signed out against medical advice. All risks, consequences were explained to the patient in detail. All AMA paperwork forms were signed, witnessed by the manager medical, and the nurse taking care of the patient, and the patient himself. The patient signed out against medical advice on 07/09/2017. Dictated and electronically signed, not read. Gordy Manzo MD Psychiatric # [id number]
== END 2017-07-09 12:03 | disposition left against medical advice (07) | DRG 894 ==
LOC: ED 09:42 → ERH 13:50 → 3RSO 20:26 → 5RSO 07-08 15:12
PROVIDERS: ADMIT Internal Medicine; ATTEND Internal Medicine
DX: F10.231 Alcohol dependence with withdrawal delirium (principal); M62.82 Rhabdomyolysis; E66.01 Morbid (severe) obesity due to excess calories; E83.42 Hypomagnesemia; F20.9 Schizophrenia, unspecified; I10 Essential (primary) hypertension; E87.6 Hypokalemia; G47.00 Insomnia, unspecified; F41.9 Anxiety disorder, unspecified; F32.9 Major depressive disorder, single episode, unspecified; Z68.36 Body mass index [BMI] 36.0-36.9, adult; F17.210 Nicotine dependence, cigarettes, uncomplicated

== ENCOUNTER 2017-08-12 08:07 | Inpatient (IN) | payer OTHER ==
[2017-08-12 08:08] VITALS: BMI 34.9
[2017-08-12 09:16] LABS: ACETAMINOPHEN < 10.0 ug/ml (10.0-20.0); ALB/GLOB RATIO 1.3 (1.1-1.8); ALBUMIN 4.3 g/dL (3.0-4.8); GFR AFRICAN-AMERICAN > 60; GFR NON-AFRICAN AMERICAN > 60; SALICYLATE < 1 mg/dL (2.0-20.0)
[2017-08-12 09:17] LABS: BASO # 0.05 K/mm3 (0.0-2.0); BASO % 0.6 % (0.0-3.0); EOS # 0.5 (0.0-0.7); GRAN # 5.4 (1.4-6.5); GRAN % 67.4 % (50.0-68.0); HEMOGLOBIN 15.4 g/dL (14.0-18.0); LYMPH # 1.6 (1.2-3.4); LYMPH % 19.8 % (22.0-35.0); MEAN CORPUSCULAR HEMOGLOBIN 33.3 pg (25.0-35.0); MEAN CORPUSCULAR HGB CONC 34.4 g/dl (31.0-37.0); MEAN PLATELET VOLUME 10.4 fl (7.0-11.0); MONO # 0.5 (0.1-0.6); MONO % 6.2 % (1.0-6.0); RBC 4.62 10^6/uL (3.5-6.1); RED CELL DISTRIBUTION WIDTH 15.3 % (11.5-14.5)
[2017-08-12 09:20] LABS: ALT/SGPT 190 U/L (7-56); AST/SGOT 254 U/L (17-59); BLOOD UREA NITROGEN 11 mg/dL (7-21)
--- NOTE | 2017-08-12 09:54 | RAD ---
PROCEDURE: CHEST RADIOGRAPH, 1 VIEW HISTORY: MEDICAL CLEARANCE COMPARISON: 07/06/2017 FINDINGS: LUNGS: Clear. PLEURA: No pneumothorax or pleural fluid seen. CARDIOVASCULAR: Normal. OSSEOUS STRUCTURES: No significant abnormalities. VISUALIZED UPPER ABDOMEN: Normal. OTHER FINDINGS: None. IMPRESSION: No active disease.
[2017-08-12 10:13] LABS: URINE BILIRUBIN NEGATIVE (NEGATIVE); URINE BLOOD NEGATIVE (NEGATIVE); URINE GLUCOSE (UA) NEGATIVE (NEGATIVE); URINE LEUKOCYTE ESTERASE NEGATIVE Leu/uL (NEGATIVE); URINE PROTEIN 30 mg/dL (<30 mg/dL)
[2017-08-12 10:14] LABS: URINE APPEARANCE SL CLOUDY (CLEAR); URINE COLOR YELLOW (YELLOW)
[2017-08-12 10:24] LABS: URINE RBC 0 - 2 /hpf (0-2); URINE WBC 0 - 2 /hpf (0-6)
[2017-08-12 10:25] LABS: URINE AMORPHOUS SEDIMENT SMALL; URINE BACTERIA MANY (NEG)
[2017-08-12 10:57] LABS: BARBITURATES, UR NEGATIVE (NEGATIVE); BENZODIAZEPINES, UR POSITIVE (NEGATIVE); OPIATES, UR NEGATIVE (NEGATIVE); PHENCYCLIDINE, UR NEGATIVE (NEGATIVE)
--- NOTE | 2017-08-12 11:36 | CARD ---
APPROVED REPORT EKG Measurement Heart [id number] <Conclusion> Normal sinus rhythm RVCD Nonspecific T wave abnormality
[2017-08-12] MEDS ORDERED: Sodium Chloride 0.9% 1,000 ML IV STA (12:25)
[2017-08-12] MEDS ORDERED: Multivitamin (MVI) 10 ML, Thiamine 100 MG, Folic Acid 1 MG in Sodium Chloride 0.9% 1,00... IV ONE (12:25)
--- NOTE | 2017-08-12 12:45 | ED PDOC ---
Arrival/HPI - General Chief Complaint: Psychiatric Evaluation Time Seen by Provider: 08/12/17 08:37 Historian: Patient - History of Present Illness Narrative History of Present Illness (Text): 08/12/17 12:42 46-year-old male presents today brought in by for alcohol intoxication, alcohol binging and paranoia. Patient with a history of high blood pressure and alcohol abuse also a psychiatric history presents today stating that he feels as if the devil is taking his soul. Patient states he has felt like this in the past. Patient states he continues to have bad dreams and he feels as if he is going to . He denies suicidal or homicidal ideations. Patient denies chest pain or shortness of breath. Denies abdominal pain. Patient is complaining of nausea without vomiting. Patient denies dizziness. Patient states he feels shaky. Patient states he has a history of chronic cough. No history of asthma. No other complaints. Past Medical History - Provider Review Nursing Documentation Reviewed: Yes - Travel History Have you recently traveled outside [place] w/in the past 3 mons?: No - Infectious Disease Hx of Infectious Diseases: None - Tetanus Immunization Tetanus Immunization: Unknown - Cardiac Hx Cardiac Disorders: Yes Hx Hypertension: Yes - Pulmonary Hx Respiratory Disorders: Yes (SMOKES 3 CIG A DAY X 15 YRS.) - Neurological Hx Neurological Disorder: No - HEENT Hx HEENT Disorder: No - Renal Hx Renal Disorder: No - Endocrine/Metabolic Hx Endocrine Disorders: No - Hematological/Oncological Hx Blood Disorders: No - Integumentary Hx Dermatological Disorder: No - Musculoskeletal/Rheumatological Hx Musculoskeletal Disorders: No Hx Falls: Yes - Gastrointestinal Hx Gastrointestinal Disorders: No - Genitourinary/Gynecological Hx Genitourinary Disorders: No - Psychiatric Hx Psychophysiologic Disorder: Yes (ETOH ABUSE) Hx Depression: Yes Hx Schizophrenia: Yes Hx Substance Use: No - Anesthesia Hx Anesthesia: Yes Hx Anesthesia Reactions: No Hx Malignant Hyperthermia: No Family/Social History - Physician Review Nursing Documentation Reviewed: Yes Family/Social History: Unknown Family HX Smoking Status: Former Smoker Hx Alcohol Use: Yes Frequency of alcohol use: Daily Hx Substance Use: No Allergies/Home Meds Allergies/Adverse Reactions: Allergies No Known Allergies Allergy (Verified 08/12/17 08:37) Home Medications: Home Meds Medication Instructions Recorded Confirmed Ziprasidone [Geodon] 20 mg PO AMHS 05/24/17 08/12/17 Sertraline [Zoloft] 50 mg PO DAILY 07/06/17 08/12/17 traZODone [Desyrel] 200 mg PO HS 07/06/17 08/12/17 Risperidone [Risperdal] 2 mg PO HS 08/12/17 08/12/17 Ziprasidone [Geodon Cap] 40 mg PO HS 08/12/17 08/12/17 Review of Systems - Review of Systems Constitutional: absent: Fatigue, Fevers ENT: absent: Sinus Congestion Respiratory: Cough. absent: SOB Cardiovascular: absent: Chest Pain, Palpitations Gastrointestinal: absent: Abdominal Pain, Nausea, Vomiting Genitourinary Male: absent: Dysuria, Frequency, Hematuria Musculoskeletal: absent: Arthralgias, Back Pain, Neck Pain Skin: absent: Rash, Pruritis Neurological: absent: Headache, Dizziness Psychiatric: Anxiety, Depression. absent: Suicidal Ideation Physical Exam Vital Signs Reviewed: Yes Vital Signs Temp Pulse Resp BP Pulse Ox 08/12/17 14:04 98 H 18 144/107 H 95 08/12/17 12:45 98 H 18 149/104 H 93 L 08/12/17 12:15 110 H 22 174/111 H 93 L 08/12/17 11:20 89 18 148/97 H 95 08/12/17 10:36 93 H 18 154/103 H 93 L 08/12/17 08:48 98.7 F 96 H 19 168/112 H 95 Temperature: Afebrile Blood Pressure: Hypertensive Pulse: Tachycardic Respiratory Rate: Normal Appearance: Positive for: Well-Appearing, Non-Toxic, Comfortable Pain Distress: None Mental Status: Positive for: Alert and Oriented X 3 - Systems Exam Head: Present: Laceration (healing laceration to lip without erythema/edema) Pupils: Present: PERRL Extroacular Muscles: Present: EOMI Mouth: Present: Moist Mucous Membranes Pharnyx: Present: Normal Nose (External): Present: Atraumatic Nose (Internal): Present: Normal Inspection Neck: Present: Normal Range of Motion, Trachea Midline Respiratory/Chest: Present: Good Air Exchange, Rhonchi. No: Clear to Auscultation, Respiratory Distress, Accessory Muscle Use, Rales, Retracting, Tachypneic, Tender to Palpation Cardiovascular: Present: Tachycardic Abdomen: No: Tenderness, Distention, Rebound, Guarding Back: Present: Normal Inspection Upper Extremity: Present: Normal ROM Lower Extremity: Present: Normal ROM Neurological: Present: GCS=15, Speech Normal Skin: Present: Warm, Dry, Normal Color Psychiatric: Present: Alert, Oriented x 3 Medical Decision Making ED Course and Treatment: 08/12/17 12:45 Patient is nontoxic well-appearing in no distress vital signs are stable. CBC WNL CMP WNL Tylenol WNL Salicylate WNL Alcohol level 188 Urine drug screen wnl UA; wnl cxr: wnl ekg: NSR at 89b/m no st elevations. pt c/o anxiety; pt c/o nausea. BP elevated; HR elevated; pt now with tremors; ativan and zofran given; banana bag ordered. will admit patient to tele for alcohol withdrawal case discussed with dr. flanagan; accepts admission to remote tele for Etoh withdrawal all aspects of this case were discussed the attending of record. Impression: alcohol withdrawal admit to remote tele - Lab Interpretations Lab Results: 08/12/17 08:45 08/12/17 08:45 Lab Results 08/12/17 10:00: Urine Opiates Screen Negative, Urine Methadone Screen Negative, Ur Barbiturates Screen Negative, Ur Phencyclidine Scrn Negative, Ur Amphetamines Screen Negative, U Benzodiazepines Scrn Positive, U Oth Cocaine Metabols Negative, U Cannabinoids Screen Negative 08/12/17 10:00: Urine Color Yellow, Urine Appearance Sl cloudy, Urine pH 6.0, Ur Specific [place] 1.025, Urine Protein 30 H, Urine Glucose (UA) Negative, Urine Ketones 15 H, Urine Blood Negative, Urine Nitrate Negative, Urine Bilirubin Negative, Urine Urobilinogen 1.0 H, Ur Leukocyte Esterase Negative, Urine RBC 0 - 2, Urine WBC 0 - 2, Ur Epithelial Cells None, Amorphous Sediment Small, Urine Bacteria Many, Urine Other Fiber 08/12/17 08:45: Alcohol, Quantitative 188 H 08/12/17 08:45: Salicylates < 1 L, Acetaminophen < 10.0 L 08/12/17 08:45: Sodium 145, Potassium 4.0, Chloride 103, Carbon Dioxide 27, Anion Gap 19, BUN 11, Creatinine 0.9, Est GFR ( Amer) > 60, Est GFR (Non- Af Amer) > 60, Random Glucose 90, Calcium 9.0, Total Bilirubin 0.6, AST 254 H, ALT 190 H, Alkaline Phosphatase 81, Total Protein 7.7, Albumin 4.3, Globulin 3.4 , Albumin/Globulin Ratio 1.3 08/12/17 08:45: WBC 8.0, RBC 4.62, Hgb 15.4, Hct 44.8, MCV 97.0, MCH 33.3, MCHC 34.4, RDW 15.3 H, Plt Count 277, MPV 10.4, Gran % 67.4, Lymph % (Auto) 19.8 L, [place] % (Auto) 6.2 H, Eos % (Auto) 6.0 H, Baso % (Auto) 0.6, Gran # 5.40, Lymph # (Auto) 1.6, [place] # (Auto) 0.5, Eos # (Auto) 0.5, Baso # (Auto) 0.05 - RAD Interpretation Radiology Orders: 08/12/17 08:37 CHEST ONE VIEW [RAD] Stat - Medication Orders Current Medication Orders: Folic Acid (Folic Acid) 1 mg PO DAILY [facility] Last Admin: 08/12/17 16:18 Dose: 1 mg Lisinopril (Zestril) 2.5 mg PO DAILY [facility] Last Admin: 08/12/17 16:19 Dose: 2.5 mg MAR Pulse and Blood Pressure Document 08/12/17 16:19 LO (Rec: 08/12/17 16:19 [email or web address]) Blood Pressure Blood Pressure (100/60-150/90 mm Hg) 153/106 Lorazepam (Ativan) 2 mg IVP Q6H [facility] PRN Reason: Protocol Last Admin: 08/12/17 16:17 Dose: 2 mg IVP Administration Document 08/12/17 16:17 LO (Rec: 08/12/17 16:18 [email or web address]) Charges for Administration # of IVP Administrations 1 Behavioural Document 08/12/17 16:17 LO (Rec: 08/12/17 16:18 [email or web address]) Maintenance Maintenance Dose Yes Nonmedicinal Nonmedicinal Interventions Redirect Therapeutic Communication Behavior Behavior for Medication: Anxiety Lorazepam (Ativan) 1 mg IVP Q1 PRN; Protocol PRN Reason: Symptoms of alcohol withdrawl Multivitamins (Thera Tab) 1 tab PO 0800 [facility] Last Admin: 08/12/17 16:18 Dose: 1 tab Ondansetron HCl (Zofran Inj) 4 mg IVP Q6H PRN PRN Reason: Nausea/Vomiting Thiamine HCl (Vitamin B1 Tab) 100 mg PO DAILY [facility] Last Admin: 08/12/17 16:18 Dose: 100 mg Trazodone HCl (Desyrel) 50 mg PO HS PRN PRN Reason: Insomnia Discontinued Medications Multivitamins/Vitamin C 10 ml/Thiamine HCl 100 mg/ Folic Acid 1 mg/ Sodium Chloride 1,011.2 mls @ 1,000 mls/hr IV .Q1H1M ONE Stop: 08/12/17 13:25 Last Admin: 08/12/17 12:54 Dose: 1,000 mls/hr eMAR Start Stop Document 08/12/17 12:54 GMD (Rec: 08/12/17 12:54 GMD [id number]) Intravenous Solution Start Date 08/12/17 Start Time 12:54 End Date 08/12/17 End time 13:55 Total Infusion Time 61 Sodium Chloride (Sodium Chloride 0.9%) 1,000 mls @ 999 mls/hr IV .Q1H1M STA Stop: 08/12/17 13:25 Last Admin: 08/12/17 12:29 Dose: 999 mls/hr eMAR Start Stop Document 08/12/17 12:29 GMD (Rec: 08/12/17 12:29 GMD [id number]) Intravenous Solution Start Date 08/12/17 Start Time 12:29 End Date 08/12/17 End time 13:30 Total Infusion Time 61 Lorazepam (Ativan) 1 mg IVP ONCE ONE PRN Reason: Protocol Stop: 08/12/17 12:16 Last Admin: 08/12/17 12:22 Dose: 1 mg IVP Administration Document 08/12/17 12:22 GMD (Rec: 08/12/17 12:22 GMD [id number]) Charges for Administration # of IVP Administrations 1 Ondansetron HCl (Zofran Inj) 4 mg IVP STAT STA Stop: 08/12/17 12:15 Last Admin: 08/12/17 12:22 Dose: 4 mg IVP Administration Document 08/12/17 12:22 GMD (Rec: 08/12/17 12:22 GMD [id number]) Charges for Administration # of IVP Administrations 1 Disposition/Present on Arrival - Present on Arrival Any Indicators Present on Arrival: No History of DVT/PE: No History of Uncontrolled Diabetes: No Urinary Catheter: No History of Decub. Ulcer: No History Surgical Site Infection Following: None - Disposition Have Diagnosis and Disposition been Completed?: Yes Diagnosis: Alcohol withdrawal Disposition: HOSPITALIZED Disposition Time: 12:30 Patient Plan: Admission, Telemetry (remote tele) Condition: FAIR
--- NOTE | 2017-08-12 13:51 | CP.PCM.HP ---
<Terry Muniz - Last Filed: 08/12/17 15:07> History of Present Illness - History of Present Illness History of Present Illness: Subjective: CC: "Negative Thoughts" HPI: Patient is a 46 year old male with a past medical history of paranoid schizophrenia, hypertension, and seizure who was brought to the ED for evaluation and treatment of negative thoughts and excess alcohol intake. Patient states that he experienced a dream where the devil was trying to take his soul. This dream in turn induces him to drink alcohol. Admits to drinking 1 pint of rum daily but has drank 2 pints in the past 24 hours. Denies suicidal and homicidal ideation. Denies visual and auditory hallucinations. Admits to SOB on exertion and nausea with 2 bouts of nonbloody nonbilious emesis. Denies fever, chills, chest pain, abdominal pain, diarrhea, constipation, and urinary symptoms. PMHx: paranoid schizophrenia, hypertension, and seizure PSHx: denies Allergies: denies Social Hx: drinks 1 pint of liquor per day for the past 1 year, smokes 1-2 cigars per day for 15 years, denies illicit drug use Family Hx: father- DM and alcoholis, mother- parkinsons disease Pharmacy: [facility] in [place] PMD: Dr. Shepherd Outpatient Psychiatrist: Dr. Issac Taylor Physical Examination: - Constitutional Appears: No Acute Distress - Head Exam Head Exam: ATRAUMATIC, NORMOCEPHALIC - Eye Exam Eye Exam: EOMI - ENT Exam ENT Exam: Mucous Membranes Moist - Neck Exam Neck exam: Negative for: Tenderness - Respiratory Exam Respiratory Exam: Clear to Auscultation Bilateral, NORMAL BREATHING PATTERN. absent: Accessory Muscle Use, Respiratory Distress - Cardiovascular Exam Cardiovascular Exam: REGULAR RHYTHM, +S1, +S2 - GI/Abdominal Exam GI & Abdominal Exam: Normal Bowel Sounds, Soft. absent: Distended, Firm, Guarding, Rebound, Rigid, Tenderness - Extremities Exam Extremities exam: Negative for: calf tenderness mild bilateral upper extremity tremor - Neurological Exam Neurological exam: Patient is awake, alert, responds to verbal stimuli, answers questions appropriately, follows commands, and moves extremities past midline - Psychiatric Exam Psychiatric exam: Normal Affect, Normal Mood - Skin Skin Exam: Dry, Intact, Normal Color, Warm Assessment and Plan: Patient is a 46 year old male with a past medical history of paranoid schizophrenia, hypertension, and seizure who was admitted for evaluation and treatment of negative thoughts and excess alcohol intake. ETOH Intoxication, Pending Withdrawal - ETOH level 188 - CIWA - ativan 2mg q6 scheduled - ativan 1mg q1 prn symptoms of ETOH withdrawl - aspiration precautions - seizure precautions - multivitamin, folate, b12 Paranoid Schizophrenia - hold home geodon at this time- await psych recs - psych consulted- appreciate recommendations Elevated LFTs - likely secondary to ETOH abuse - will monitor closely Nausea/Vomitting - likely secondary to ETOH - prn zofran, QTc- 457 Insomina - trazadone 50mg QHS prn insomnia Hx of HTN - not taking antihypertensives at home - start lisinopril 2.5mg PO daily Patient case discussed with and plan approved by attending physician, Dr. Mcduffie. Present on Admission - Present on Admission Any Indicators Present on Admission: No Past Patient History - Infectious Disease Hx of Infectious Diseases: None - Tetanus Immunizations Tetanus Immunization: Unknown - Past Social History Smoking Status: Former Smoker - CARDIAC Hx Cardiac Disorders: Yes Hx Hypertension: Yes - PULMONARY Hx Respiratory Disorders: Yes (SMOKES 3 CIG A DAY X 15 YRS.) - NEUROLOGICAL Hx Neurological Disorder: No - HEENT Hx HEENT Problems: No - RENAL Hx Chronic Kidney Disease: No - ENDOCRINE/METABOLIC Hx Endocrine Disorders: No - HEMATOLOGICAL/ONCOLOGICAL Hx Blood Disorders: No - INTEGUMENTARY Hx Dermatological Problems: No - MUSCULOSKELETAL/RHEUMATOLOGICAL Hx Musculoskeletal Disorders: No Hx Falls: Yes - GASTROINTESTINAL Hx Gastrointestinal Disorders: No - GENITOURINARY/GYNECOLOGICAL Hx Genitourinary Disorders: No - PSYCHIATRIC Hx Psychophysiologic Disorder: Yes (ETOH ABUSE) Hx Depression: Yes Hx Schizophrenia: Yes Hx Substance Use: No - SURGICAL HISTORY Hx Surgeries: Yes (gastric sleeve) - ANESTHESIA Hx Anesthesia: Yes Hx Anesthesia Reactions: No Hx Malignant Hyperthermia: No Meds Allergies/Adverse Reactions: Allergies Allergy/AdvReac Type Severity Reaction Status Date / Time No Known Allergies Allergy Verified 08/12/17 08:37 Results - Vital Signs Recent Vital Signs: Last Vital Signs Temp 98.7 F 08/12/17 08:48 Pulse 98 H 08/12/17 12:45 Resp 18 08/12/17 12:45 BP 149/104 H 08/12/17 12:45 Pulse Ox 93 L 08/12/17 12:45 - Labs Result Diagrams: 08/12/17 08:45 08/12/17 08:45 Labs: Laboratory Results - last 24 hr 08/12/17 08/12/17 08/12/17 08:45 08:45 08:45 WBC 8.0 RBC 4.62 Hgb 15.4 Hct 44.8 MCV 97.0 MCH 33.3 MCHC 34.4 RDW 15.3 H Plt Count 277 MPV 10.4 Gran % 67.4 Lymph % (Auto) 19.8 L Holt % (Auto) 6.2 H Eos % (Auto) 6.0 H Baso % (Auto) 0.6 Gran # 5.40 Lymph # (Auto) 1.6 Holt # (Auto) 0.5 Eos # (Auto) 0.5 Baso # (Auto) 0.05 Sodium 145 Potassium 4.0 Chloride 103 Carbon Dioxide 27 Anion Gap 19 BUN 11 Creatinine 0.9 Est GFR ( Amer) > 60 Est GFR (Non-Af Amer) > 60 Random Glucose 90 Calcium 9.0 Total Bilirubin 0.6 AST 254 H ALT 190 H Alkaline Phosphatase 81 Total Protein 7.7 Albumin 4.3 Globulin 3.4 Albumin/Globulin Ratio 1.3 Urine Color Urine Appearance Urine pH Ur Specific [place] Urine Protein Urine Glucose (UA) Urine Ketones Urine Blood Urine Nitrate Urine Bilirubin Urine Urobilinogen Ur Leukocyte Esterase Urine RBC Urine WBC Ur Epithelial Cells Amorphous Sediment Urine Bacteria Urine Other Salicylates < 1 L Urine Opiates Screen Urine Methadone Screen Acetaminophen < 10.0 L Ur Barbiturates Screen Ur Phencyclidine Scrn Ur Amphetamines Screen U Benzodiazepines Scrn U Oth Cocaine Metabols U Cannabinoids Screen Alcohol, Quantitative 08/12/17 08/12/17 08/12/17 08:45 10:00 10:00 WBC RBC Hgb Hct MCV MCH MCHC RDW Plt Count MPV Gran % Lymph % (Auto) Holt % (Auto) Eos % (Auto) Baso % (Auto) Gran # Lymph # (Auto) Holt # (Auto) Eos # (Auto) Baso # (Auto) Sodium Potassium Chloride Carbon Dioxide Anion Gap BUN Creatinine Est GFR ( Amer) Est GFR (Non-Af Amer) Random Glucose Calcium Total Bilirubin AST ALT Alkaline Phosphatase Total Protein Albumin Globulin Albumin/Globulin Ratio Urine Color Yellow Urine Appearance Sl cloudy Urine pH 6.0 Ur Specific [place] 1.025 Urine Protein 30 H Urine Glucose (UA) Negative Urine Ketones 15 H Urine Blood Negative Urine Nitrate Negative Urine Bilirubin Negative Urine Urobilinogen 1.0 H Ur Leukocyte Esterase Negative Urine RBC 0 - 2 Urine WBC 0 - 2 Ur Epithelial Cells None Amorphous Sediment Small Urine Bacteria Many Urine Other Fiber Salicylates Urine Opiates Screen Negative Urine Methadone Screen Negative Acetaminophen Ur Barbiturates Screen Negative Ur Phencyclidine Scrn Negative Ur Amphetamines Screen Negative U Benzodiazepines Scrn Positive U Oth Cocaine Metabols Negative U Cannabinoids Screen Negative Alcohol, Quantitative 188 H <McduffieAntonia B - Last Filed: 08/14/17 19:02> Results - Vital Signs Recent Vital Signs: Last Vital Signs Temp 98.3 F 08/13/17 08:25 Pulse 109 H 08/13/17 13:49 Resp 20 08/13/17 08:25 BP 166/114 H 08/13/17 09:13 Pulse Ox 98 08/13/17 08:25 - Labs Result Diagrams: 08/14/17 05:30 08/14/17 05:30 Labs: Laboratory Results - last 24 hr 08/12/17 08/13/17 08/13/17 18:32 05:30 05:30 WBC 9.3 RBC 4.39 Hgb 14.7 Hct 42.3 MCV 96.4 MCH 33.5 MCHC 34.8 RDW 14.8 H Plt Count 273 MPV 10.7 Gran % 69.6 H Lymph % (Auto) 13.8 L Holt % (Auto) 11.9 H Eos % (Auto) 4.5 Baso % (Auto) 0.2 Gran # 6.43 Lymph # (Auto) 1.3 Holt # (Auto) 1.1 H Eos # (Auto) 0.4 Baso # (Auto) 0.02 Sodium 140 Potassium 3.6 Chloride 100 Carbon Dioxide 28 Anion Gap 15 BUN 11 Creatinine 0.7 L Est GFR ( Amer) > 60 Est GFR (Non-Af Amer) > 60 POC Glucose (mg/dL) 118 H Random Glucose 89 Calcium 9.0 Total Bilirubin 1.0 AST 153 H D ALT 141 H Alkaline Phosphatase 83 Total Protein 7.2 Albumin 4.0 Globulin 3.2 Albumin/Globulin Ratio 1.3 Attending/Attestation - Attestation I have personally seen and examined this patient.: Yes I have fully participated in the care of the patient.: Yes I have reviewed all pertinent clinical information: Yes Notes (Text): I have seen and examined the patient at bedside. Agree with the above note dictated by the resident. Vitals, labs and imaging reviewed by me. Psych consult will be called. Patient maeve be started on ativan. Will monitor closely for alcohol withdrawal. Upon discharge patient will follow up with Dr Duque.
[2017-08-12] MEDS: Multivitamin Therapeutic Tab PO SCH (16:18)
[2017-08-12] MEDS ORDERED: Pneumococcal 23-Valent Vaccine IM ONE (17:16)
[2017-08-13 06:25] LABS: BASO # 0.02 K/mm3 (0.0-2.0); BASO % 0.2 % (0.0-3.0); EOS # 0.4 (0.0-0.7); EOS % 4.5 % (1.5-5.0); GRAN # 6.43 (1.4-6.5); GRAN % 69.6 % (50.0-68.0); HEMOGLOBIN 14.7 g/dL (14.0-18.0); LYMPH # 1.3 (1.2-3.4); LYMPH % 13.8 % (22.0-35.0); MEAN CELL VOLUME 96.4 fl (80.0-105.0); MEAN CORPUSCULAR HEMOGLOBIN 33.5 pg (25.0-35.0); MEAN CORPUSCULAR HGB CONC 34.8 g/dl (31.0-37.0); MEAN PLATELET VOLUME 10.7 fl (7.0-11.0); MONO # 1.1 (0.1-0.6); MONO % 11.9 % (1.0-6.0); RBC 4.39 10^6/uL (3.5-6.1); RED CELL DISTRIBUTION WIDTH 14.8 % (11.5-14.5); WHITE BLOOD COUNT 9.3 10^3/ul (4.5-11.0)
[2017-08-13 06:41] LABS: ALB/GLOB RATIO 1.3 (1.1-1.8); ALT/SGPT 141 U/L (7-56); AST/SGOT 153 U/L (17-59); BLOOD UREA NITROGEN 11 mg/dL (7-21); GFR AFRICAN-AMERICAN > 60; GFR NON-AFRICAN AMERICAN > 60
[2017-08-13] MEDS: Multivitamin Therapeutic Tab PO SCH (08:02)
--- NOTE | 2017-08-13 12:28 | CP.PCM.PN ---
<Terry Muniz - Last Filed: 08/13/17 12:15> Subjective - Date & Time of Evaluation Date of Evaluation: 08/13/17 Time of Evaluation: 10:00 - Subjective Subjective: Subjective: Patient seen and examined at bedside. Resting comfortably in bed. States he felt himself shaking overnight. Admits to nausea and nonbloody nonbilious vomitting overnight which have resolved. Admits to baseline negative thoughts. Denies fever, chills, chest pain, shortness of breath at rest, abdominal pain, diarrhea, constipation, and urinary symptoms. Denies SI and HI. Denies auditory and visual hallucinations. 12-point review of systems negative except as indicated in the HPI Physical Examination: - Constitutional Appears: No Acute Distress - Head Exam Head Exam: ATRAUMATIC, NORMOCEPHALIC - Eye Exam Eye Exam: EOMI - ENT Exam ENT Exam: Mucous Membranes Moist - Neck Exam Neck exam: Negative for: Tenderness - Respiratory Exam Respiratory Exam: Wheezing bilateral lobes; absent: Accessory Muscle Use, Respiratory Distress - Cardiovascular Exam Cardiovascular Exam: REGULAR RHYTHM, +S1, +S2 - GI/Abdominal Exam GI & Abdominal Exam: Normal Bowel Sounds, Soft. absent: Distended, Firm, Guarding, Rebound, Rigid, Tenderness - Extremities Exam Extremities exam: Negative for: calf tenderness mild bilateral upper extremity tremor - Neurological Exam Neurological exam: Patient is awake, alert, responds to verbal stimuli, answers questions appropriately, follows commands, and moves extremities past midline - Psychiatric Exam Psychiatric exam: Normal Affect, Normal Mood - Skin Skin Exam: Dry, Intact, Normal Color, Warm Assessment and Plan: Patient is a 46 year old male with a past medical history of paranoid schizophrenia, hypertension, and seizure who was admitted for evaluation and treatment of negative thoughts and excess alcohol intake. ETOH Intoxication, Pending Withdrawal - CIWA - ativan changed to 1mg q6 scheduled - ativan changed to 1mg q2 prn symptoms of ETOH withdrawl - aspiration precautions - seizure precautions - multivitamin, folate, b12 COPD, Tobacco Abuse - xopenox 1.25mg TID - prednisone 40mg PO 1 tablet daily Paranoid Schizophrenia - hold home geodon at this time- await psych recs - psych consulted- appreciate recommendations- started patient on Elevated LFTs - likely secondary to ETOH abuse - will monitor closely Nausea/Vomitting - likely secondary to ETOH - prn zofran, QTc- 457 Insomina - trazadone 50mg QHS prn insomnia Hx of HTN - not taking antihypertensives at home - lisinopril changed 5 mg PO daily Patient case discussed with and plan approved by attending physician, Dr. Mcduffie. Objective - Vital Signs/Intake and Output Vital Signs (last 24 hours): Temp Pulse Resp BP Pulse Ox 98.3 F 120 H 20 166/114 H 98 08/13/17 08:25 08/13/17 09:13 08/13/17 08:25 08/13/17 09:13 08/13/17 08:25 Intake and Output: 08/13/17 08/13/17 06:59 18:59 Intake Total 960 Output Total 1700 Balance -740 - Medications Medications: Current Medications Folic Acid (Folic Acid) 1 mg PO DAILY [facility] Last Admin: 08/13/17 09:13 Dose: 1 mg Lisinopril (Zestril) 5 mg PO DAILY [facility] Lorazepam (Ativan) 1 mg IVP Q2 [facility] PRN Reason: Protocol Lorazepam (Ativan) 1 mg IVP Q6H [facility] PRN Reason: Protocol Multivitamins (Thera Tab) 1 tab PO 0800 [facility] Last Admin: 08/13/17 08:02 Dose: 1 tab Ondansetron HCl (Zofran Inj) 4 mg IVP Q6H PRN PRN Reason: Nausea/Vomiting Last Admin: 08/13/17 03:36 Dose: 4 mg Prednisone (Prednisone Tab) 40 mg PO DAILY [facility] Thiamine HCl (Vitamin B1 Tab) 100 mg PO DAILY [facility] Last Admin: 08/13/17 09:13 Dose: 100 mg Trazodone HCl (Desyrel) 50 mg PO HS PRN PRN Reason: Insomnia Last Admin: 08/12/17 22:35 Dose: 50 mg - Labs Labs: 08/13/17 05:30 08/13/17 05:30 <Antonia Mcduffie - Last Filed: 08/15/17 14:43> Objective - Vital Signs/Intake and Output Vital Signs (last 24 hours): Temp Pulse Resp BP Pulse Ox 98.0 F 87 17 174/118 H 96 08/15/17 06:00 08/15/17 06:00 08/15/17 06:00 08/15/17 09:43 08/15/17 06:00 Intake and Output: 08/15/17 08/15/17 06:59 18:59 Intake Total 1300 Balance 1300 - Medications Medications: Current Medications Atenolol (Tenormin) 12.5 mg PO DAILY [facility] Last Admin: 08/15/17 09:43 Dose: 12.5 mg Folic Acid (Folic Acid) 1 mg PO DAILY [facility] Last Admin: 08/15/17 09:42 Dose: 1 mg Levalbuterol HCl (Xopenex) 1.25 mg IH TIDRESP [facility] Last Admin: 08/15/17 13:37 Dose: 1.25 mg Lisinopril (Zestril) 5 mg PO DAILY [facility] Last Admin: 08/15/17 09:44 Dose: Not Given Lorazepam (Ativan) 1 mg IVP Q2 PRN; Protocol PRN Reason: Symptoms of alcohol withdrawl Lorazepam (Ativan) 1 mg PO Q8 [facility] PRN Reason: Protocol Last Admin: 08/15/17 14:18 Dose: 1 mg Multivitamins (Thera Tab) 1 tab PO 0800 [facility] Last Admin: 08/15/17 09:43 Dose: 1 tab Ondansetron HCl (Zofran Inj) 4 mg IVP Q6H PRN PRN Reason: Nausea/Vomiting Last Admin: 08/13/17 03:36 Dose: 4 mg Prednisone (Prednisone Tab) 40 mg PO DAILY [facility] Last Admin: 08/15/17 09:43 Dose: 40 mg Sertraline HCl (Zoloft) 50 mg PO DAILY [facility] Last Admin: 08/15/17 09:43 Dose: 50 mg Thiamine HCl (Vitamin B1 Tab) 100 mg PO DAILY [facility] Last Admin: 08/14/17 09:37 Dose: 100 mg Trazodone HCl (Desyrel) 100 mg PO HS [facility] Last Admin: 08/14/17 22:08 Dose: 100 mg Ziprasidone (Geodon Cap) 20 mg PO BID [facility] PRN Reason: Protocol Last Admin: 08/15/17 09:43 Dose: 20 mg Ziprasidone (Geodon Cap) 20 mg PO HS [facility] PRN Reason: Protocol Last Admin: 08/14/17 22:08 Dose: 20 mg Ziprasidone (Geodon Inj) 20 mg IM Q8H PRN; Protocol PRN Reason: severe agitation - Labs Labs: 08/15/17 06:00 08/15/17 06:00 Attending/Attestation - Attestation I have personally seen and examined this patient.: Yes I have fully participated in the care of the patient.: Yes I have reviewed all pertinent clinical information, including history, physical exam and plan: Yes Notes (Text): I have seen and examined the patient at bedside. Agree with the above note dictated by the resident. Vitals, labs and imaging reviewed by me. Psych consult appreciated. Continue tapering doses of ativan. Continue geodon as per psych. Will monitor closely for alcohol withdrawal. Upon discharge patient will follow up with Dr Duque.
[2017-08-13] MEDS: Levalbuterol 1.25 MG/3 ML Inhal Soln UD IH SCH ×2 (13:46→20:24)
--- NOTE | 2017-08-13 15:58 | CON ---
DATE: HISTORY OF PRESENT ILLNESS: In short, the patient is a 46-year-old male with history of schizophrenia and history of alcohol use disorder. The patient was brought in for evaluation of alcohol intoxication and paranoia. Psych consult was called because the patient had sense that devil is taking his soul, for medication resumption, and possible transfer to the Psychiatric Inpatient Unit. The patient is very familiar to this procedure writer from the previous consultation services, which took place here in [place] in July 2017. Back then, the patient was willing to go to the Psychiatric Inpatient Unit, but the patient changed his mind and was discharged after medical stabilization. The patient was seen today with medical team. The patient presented to be alert, pleasant. The patient reported that he was drinking about one pint of vodka on daily basis. The patient reported that he was not feeling well, the patient had difficulty to breathe, shortness of breath. The patient also reported that his paranoia was out of control. The patient said that he was filling his medication in [facility] at [place], this procedure writer called and confirmed the medication. The patient was on the following medications: 1. Geodon 20 mg at the morning time and 40 mg at the nighttime. The patient filled medication on 08/02/[address] Thomas for all of the psychotropic medications. The patient has 2 refills left. 2. Prazosin 2 mg daily. The patient has 2 refills left and filled on 08/01/2017. 3. Trazodone 100 mg 2 pills at the nighttime, filled on 08/01/2017, 2 refills left. 4. The patient is also on sertraline 50 mg daily. The patient filled the medication on 08/01/2017, and 2 refills left. The patient reported that he was compliant with the medications, but when he is drinking, he cannot take medication and that is why probably his psychotic symptoms were out of control. Vital signs are reviewed. Temperature 98.3, pulse is 120, blood pressure 166/114, respirations 20, oxygen saturation is 98. MEDICATIONS: Reviewed. The patient is on folic acid, levalbuterol, lisinopril, Ativan 1 mg IV push every 6 hours scheduled and 1 mg IV push every 2 hours scheduled as well, multivitamins, Zofran, prednisone, vitamin B1, and trazodone. We will adjust medications and resume all of the psychotropic medications. LABORATORY DATA: Reviewed. CBC, CMP within normal limits. AST and ALT are going down but still elevated at 153 and 141 respectively. Urinalysis seems within normal limits, but ketones are elevated at 15 and urobilinogen 1. Toxicology: Alcohol was positive and it was 188 yesterday, benzodiazepines positive, but the patient was not prescribed any benzodiazepines. MENTAL STATUS EXAMINATION: The patient presented to be alert, pleasant, cooperative. At the same time, the patient was guarded. Mood described "I was not feeling well." Affect was constricted. Thought process concrete. Thought content, the patient reported that he is hearing devil voices and devil is going to take his soul. The patient has history of chronic paranoia and hallucinations. The patient presented to be guarded and responding to internal stimuli, at times irritable. Insight and judgment seem to be limited. Impulses are well controlled. IMPRESSION: As per history of schizophrenia, alcohol use disorder, alcohol withdrawal syndrome. PLAN: Continue current medication. Continue current management, multivitamins, thiamine, and folic acid. Naltrexone was discussed with the patient. The patient is willing to try this medication as soon as he will be medically stable. Geodon will be resumed 20 mg at the morning time and 40 mg at the nighttime. Prazosin is nonformulary in the hospital. Trazodone 100 mg 2 pills at the nighttime will be resumed. Sertraline 50 mg daily with a plan to increase that further. Please monitor vital signs, CIWA protocol. The patient is willing to sign himself into the Psychiatric Inpatient Unit after medical stabilization, but this procedure writer cannot exclude the chance that the patient might be not willing to sign himself in after medical stabilization. We will keep following on the patient and advise accordingly. Should you have any questions, give me a call back. Thank you very much. Deysi Patel MD
[2017-08-14 06:29] LABS: BASO # 0.02 K/mm3 (0.0-2.0); BASO % 0.2 % (0.0-3.0); EOS # 0.2 (0.0-0.7); EOS % 2.1 % (1.5-5.0); GRAN # 5.63 (1.4-6.5); GRAN % 67.1 % (50.0-68.0); HEMOGLOBIN 14.5 g/dL (14.0-18.0); LYMPH # 1.7 (1.2-3.4); LYMPH % 20.1 % (22.0-35.0); MEAN CELL VOLUME 96.1 fl (80.0-105.0); MEAN CORPUSCULAR HEMOGLOBIN 33.1 pg (25.0-35.0); MEAN CORPUSCULAR HGB CONC 34.4 g/dl (31.0-37.0); MEAN PLATELET VOLUME 10.9 fl (7.0-11.0); MONO # 0.9 (0.1-0.6); MONO % 10.5 % (1.0-6.0); RBC 4.38 10^6/uL (3.5-6.1); RED CELL DISTRIBUTION WIDTH 14.7 % (11.5-14.5); WHITE BLOOD COUNT 8.4 10^3/ul (4.5-11.0)
[2017-08-14 06:55] LABS: ALB/GLOB RATIO 1.2 (1.1-1.8); ALBUMIN 3.8 g/dL (3.0-4.8); ALT/SGPT 115 U/L (7-56); AST/SGOT 110 U/L (17-59); BLOOD UREA NITROGEN 13 mg/dL (7-21); CALCIUM 9.8 mg/dL (8.4-10.5); GFR AFRICAN-AMERICAN > 60; GFR NON-AFRICAN AMERICAN > 60
[2017-08-14] MEDS: Levalbuterol 1.25 MG/3 ML Inhal Soln UD IH SCH ×3 (07:38→19:19)
[2017-08-14] MEDS ORDERED: Potassium Chloride 40 mEq/30 ml LIQ UD PO ONE (08:14)
[2017-08-14] MEDS: Multivitamin Therapeutic Tab PO SCH (08:35)
--- NOTE | 2017-08-14 11:29 | PN ---
DATE: FOLLOWUP NOTE SUBJECTIVE: In short, the patient is a 46-year-old male with a reported history of schizophrenia and alcohol use disorder. The patient was admitted on the medical side for alcohol withdrawal syndrome. The patient was seen by this insurance underwriter sales for mood symptoms as well as the patient was hearing voices and was feeling paranoid, on medication management. The patient was seen initially yesterday. Please see consultation note for more detailed information. The patient was followed up today. The patient presented a little bit better, but still diaphoretic and tachycardiac. Pulse is 101 today, temperature 97.7, blood pressure 148/90, respirations 20, oxygen saturation is 98. The patient was resumed on the medication and medications were confirmed by the pharmacy. Please see yesterday's note for more detailed information. As per nursing staff, the patient was compliant with the medications, no behavioral issues. The patient is on folic acid, multivitamins, thiamine and levalbuterol, lisinopril, Ativan 1 mg IV push every 2 hours as needed for alcohol withdrawal symptoms, Ativan 2 mg every 6 hours scheduled, Zofran, prednisone, Zoloft 50 mg daily, vitamin B1, trazodone, Geodon 20 mg twice a day as well as at the nighttime, p.r.n. Geodon IM, but the patient did not require to be medicated. Labs reviewed. Most recent was from today. AST and ALT are trending down. Potassium is 3.2 today. Urinalysis showed no infection. Toxicology was positive for benzodiazepines and alcohol was 188 at the time of admission. MENTAL STATUS EXAMINATION: The patient presented to be guarded and paranoid. Intense eye contact. Speech was under productive, yes and no answers. Mood described as depressed and scared. Affect was constricted. Thought process seems to be concrete. Thought content, the patient obviously guarded, paranoid. The patient reported that he hears devil voice and he is having nightmares as well as the patient is afraid that devil is going to take his soul and heart. Insight and judgment seems to be improving. Impulses are well controlled. IMPRESSION: History of schizophrenia. The patient has alcohol use disorder, multiple medical issues. Please see notes for more detailed information. PLAN: Continue current management. Continue current medication. All medications were confirmed with the pharmacy. The patient requested to be admitted to the psychiatric inpatient unit because the patient feels paranoid and wants to start feeling better with a plan to titrate Geodon or implement some other antipsychotic medications. The patient is to be continued on tapering dose of Ativan, multivitamins, thiamine and folic acid. Trazodone should be continued as well as Zoloft may be need to be titrated up. We will endorse that case to Dr. Arreaga. Preliminary plan is transfer to psychiatric inpatient unit for this patient. At the same time, this insurance underwriter sales cannot exclude that the patient will change his mind, this is what happened last time. During the last admission, initially the patient wanted to sign in, but changed his mind whenever he has started to feel better from the medical standpoint, but we will keep eye on the patient and transfer the patient to the psychiatric inpatient unit. By the way, the patient has followup appointment with his outpatient psychiatrist, Dr. Thomas. Thank you very much for letting me participate in the care of your patient. Deysi Patel MD
--- NOTE | 2017-08-14 12:43 | CP.PCM.PN ---
<Terry Muniz - Last Filed: 08/14/17 12:40> Subjective - Date & Time of Evaluation Date of Evaluation: 08/14/17 Time of Evaluation: 10:30 - Subjective Subjective: Subjective: Patient seen and examined at bedside. Resting comfortably in bed. States that n/ v has resolved. States he is having decreased negative thoughts. Denies fever, chills, chest pain, shortness of breath at rest, abdominal pain, diarrhea, constipation, and urinary symptoms. Denies SI and HI. Denies auditory and visual hallucinations. 12-point review of systems negative except as indicated in the HPI Physical Examination: - Constitutional Appears: No Acute Distress - Head Exam Head Exam: ATRAUMATIC, NORMOCEPHALIC - Eye Exam Eye Exam: EOMI - ENT Exam ENT Exam: Mucous Membranes Moist - Neck Exam Neck exam: Negative for: Tenderness - Respiratory Exam Respiratory Exam: Wheezing bilateral lobes; absent: Accessory Muscle Use, Respiratory Distress - Cardiovascular Exam Cardiovascular Exam: REGULAR RHYTHM, +S1, +S2 - GI/Abdominal Exam GI & Abdominal Exam: Normal Bowel Sounds, Soft. absent: Distended, Firm, Guarding, Rebound, Rigid, Tenderness - Extremities Exam Extremities exam: Negative for: calf tenderness mild bilateral upper extremity tremor - Neurological Exam Neurological exam: Patient is awake, alert, responds to verbal stimuli, answers questions appropriately, follows commands, and moves extremities past midline - Psychiatric Exam Psychiatric exam: Normal Affect, Normal Mood - Skin Skin Exam: Dry, Intact, Normal Color, Warm Assessment and Plan: Patient is a 46 year old male with a past medical history of paranoid schizophrenia, hypertension, and seizure who was admitted for evaluation and treatment of negative thoughts and excess alcohol intake. ETOH Intoxication, Pending Withdrawal - CIWA - ativan changed to 1mg q6 scheduled - c/w ativan 1mg q2 prn symptoms of ETOH withdrawl - aspiration precautions - seizure precautions - multivitamin, folate, b12 COPD, Tobacco Abuse - xopenox 1.25mg TID - prednisone 40mg PO 1 tablet daily Paranoid Schizophrenia - hold home geodon at this time- await psych recs - psych consulted- appreciate recommendations- started patient on geodon and sertraline Elevated LFTs - likely secondary to ETOH abuse - will monitor closely Nausea/Vomitting - likely secondary to ETOH - prn zofran, QTc- 457 Insomina - trazadone 50mg QHS prn insomnia Hx of HTN - not taking antihypertensives at home - c/w lisinopril 5 mg PO daily Patient case discussed with and plan approved by attending physician, Dr. Mcduffie. Objective - Vital Signs/Intake and Output Vital Signs (last 24 hours): Temp Pulse Resp BP Pulse Ox 97.7 F 101 H 20 148/90 98 08/14/17 08:13 08/14/17 09:35 08/14/17 08:13 08/14/17 09:35 08/14/17 08:13 Intake and Output: 08/14/17 08/14/17 06:59 18:59 Intake Total 780 Balance 780 - Medications Medications: Current Medications Folic Acid (Folic Acid) 1 mg PO DAILY [facility] Last Admin: 08/14/17 09:32 Dose: 1 mg Levalbuterol HCl (Xopenex) 1.25 mg IH TIDRESP [facility] Last Admin: 08/14/17 07:38 Dose: 1.25 mg Lisinopril (Zestril) 5 mg PO DAILY [facility] Last Admin: 08/14/17 09:35 Dose: 5 mg Lorazepam (Ativan) 1 mg IVP Q2 PRN; Protocol PRN Reason: Symptoms of alcohol withdrawl Lorazepam (Ativan) 1 mg PO Q6H [facility] PRN Reason: Protocol Last Admin: 08/14/17 10:10 Dose: Not Given Multivitamins (Thera Tab) 1 tab PO 0800 [facility] Last Admin: 08/14/17 08:35 Dose: 1 tab Ondansetron HCl (Zofran Inj) 4 mg IVP Q6H PRN PRN Reason: Nausea/Vomiting Last Admin: 08/13/17 03:36 Dose: 4 mg Prednisone (Prednisone Tab) 40 mg PO DAILY [facility] Last Admin: 08/14/17 09:33 Dose: 40 mg Sertraline HCl (Zoloft) 50 mg PO DAILY [facility] Last Admin: 08/14/17 09:36 Dose: 50 mg Thiamine HCl (Vitamin B1 Tab) 100 mg PO DAILY [facility] Last Admin: 08/14/17 09:37 Dose: 100 mg Trazodone HCl (Desyrel) 100 mg PO HS [facility] Last Admin: 08/13/17 21:13 Dose: 100 mg Ziprasidone (Geodon Cap) 20 mg PO BID [facility] PRN Reason: Protocol Last Admin: 08/14/17 09:33 Dose: 20 mg Ziprasidone (Geodon Cap) 20 mg PO HS [facility] PRN Reason: Protocol Last Admin: 08/13/17 21:12 Dose: 20 mg Ziprasidone (Geodon Inj) 20 mg IM Q8H PRN; Protocol PRN Reason: severe agitation - Labs Labs: 08/14/17 05:30 08/14/17 05:30 <Antonia Mcduffie - Last Filed: 08/15/17 14:45> Objective - Vital Signs/Intake and Output Vital Signs (last 24 hours): Temp Pulse Resp BP Pulse Ox 98.0 F 87 17 174/118 H 96 08/15/17 06:00 08/15/17 06:00 08/15/17 06:00 08/15/17 09:43 08/15/17 06:00 Intake and Output: 08/15/17 08/15/17 06:59 18:59 Intake Total 1300 Balance 1300 - Medications Medications: Current Medications Atenolol (Tenormin) 12.5 mg PO DAILY [facility] Last Admin: 08/15/17 09:43 Dose: 12.5 mg Folic Acid (Folic Acid) 1 mg PO DAILY [facility] Last Admin: 08/15/17 09:42 Dose: 1 mg Levalbuterol HCl (Xopenex) 1.25 mg IH TIDRESP [facility] Last Admin: 08/15/17 13:37 Dose: 1.25 mg Lisinopril (Zestril) 5 mg PO DAILY [facility] Last Admin: 08/15/17 09:44 Dose: Not Given Lorazepam (Ativan) 1 mg IVP Q2 PRN; Protocol PRN Reason: Symptoms of alcohol withdrawl Lorazepam (Ativan) 1 mg PO Q8 [facility] PRN Reason: Protocol Last Admin: 08/15/17 14:18 Dose: 1 mg Multivitamins (Thera Tab) 1 tab PO 0800 [facility] Last Admin: 08/15/17 09:43 Dose: 1 tab Ondansetron HCl (Zofran Inj) 4 mg IVP Q6H PRN PRN Reason: Nausea/Vomiting Last Admin: 08/13/17 03:36 Dose: 4 mg Prednisone (Prednisone Tab) 40 mg PO DAILY [facility] Last Admin: 08/15/17 09:43 Dose: 40 mg Sertraline HCl (Zoloft) 50 mg PO DAILY [facility] Last Admin: 08/15/17 09:43 Dose: 50 mg Thiamine HCl (Vitamin B1 Tab) 100 mg PO DAILY [facility] Last Admin: 08/14/17 09:37 Dose: 100 mg Trazodone HCl (Desyrel) 100 mg PO HS [facility] Last Admin: 08/14/17 22:08 Dose: 100 mg Ziprasidone (Geodon Cap) 20 mg PO BID [facility] PRN Reason: Protocol Last Admin: 08/15/17 09:43 Dose: 20 mg Ziprasidone (Geodon Cap) 20 mg PO HS [facility] PRN Reason: Protocol Last Admin: 08/14/17 22:08 Dose: 20 mg Ziprasidone (Geodon Inj) 20 mg IM Q8H PRN; Protocol PRN Reason: severe agitation - Labs Labs: 08/15/17 06:00 08/15/17 06:00 Attending/Attestation - Attestation I have personally seen and examined this patient.: Yes I have fully participated in the care of the patient.: Yes I have reviewed all pertinent clinical information, including history, physical exam and plan: Yes Notes (Text): I have seen and examined the patient at bedside. Agree with the above note dictated by the resident. Vitals, labs and imaging reviewed by me. Psych consult appreciated. Continue tapering doses of ativan. Continue geodon as per psych. Will monitor closely for alcohol withdrawal. Patient is requesting to be sent to psych unit. Upon discharge patient will follow up with Dr Duque.
[2017-08-15 07:07] LABS: BASO # 0.02 K/mm3 (0.0-2.0); BASO % 0.3 % (0.0-3.0); EOS # 0.2 (0.0-0.7); EOS % 2.7 % (1.5-5.0); GRAN # 5.89 (1.4-6.5); GRAN % 75.3 % (50.0-68.0); HEMOGLOBIN 14.7 g/dL (14.0-18.0); LYMPH # 1.3 (1.2-3.4); LYMPH % 16.2 % (22.0-35.0); MEAN CELL VOLUME 96.6 fl (80.0-105.0); MEAN CORPUSCULAR HEMOGLOBIN 33.5 pg (25.0-35.0); MEAN CORPUSCULAR HGB CONC 34.7 g/dl (31.0-37.0); MEAN PLATELET VOLUME 10.9 fl (7.0-11.0); MONO # 0.4 (0.1-0.6); MONO % 5.5 % (1.0-6.0); RBC 4.39 10^6/uL (3.5-6.1); RED CELL DISTRIBUTION WIDTH 14.8 % (11.5-14.5); WHITE BLOOD COUNT 7.8 10^3/ul (4.5-11.0)
[2017-08-15] MEDS: Levalbuterol 1.25 MG/3 ML Inhal Soln UD IH SCH ×3 (07:55→21:45)
[2017-08-15 08:28] LABS: ALB/GLOB RATIO 1.5 (1.1-1.8); ALBUMIN 4.3 g/dL (3.0-4.8); ALT/SGPT 256 U/L (7-56); AST/SGOT 368 U/L (17-59); BLOOD UREA NITROGEN 13 mg/dL (7-21); CALCIUM 9.2 mg/dL (8.4-10.5); GFR AFRICAN-AMERICAN > 60; GFR NON-AFRICAN AMERICAN > 60
[2017-08-15] MEDS: Multivitamin Therapeutic Tab PO SCH (09:43)
--- NOTE | 2017-08-15 12:14 | CP.PCM.DIS ---
Provider - Provider Date of Admission: 08/12/17 13:34 Attending physician: Antonia Mcduffie MD Hospital Course - Lab Results Lab Results: Most Recent Lab Values WBC 7.8 10^3/ul (4.5-11.0) 08/15/17 06:00 RBC 4.39 10^6/uL (3.5-6.1) 08/15/17 06:00 Hgb 14.7 g/dL (14.0-18.0) 08/15/17 06:00 Hct 42.4 % (42.0-52.0) 08/15/17 06:00 MCV 96.6 fl (80.0-105.0) 08/15/17 06:00 MCH 33.5 pg (25.0-35.0) 08/15/17 06:00 MCHC 34.7 g/dl (31.0-37.0) 08/15/17 06:00 RDW 14.8 % (11.5-14.5) H 08/15/17 06:00 Plt Count 232 10^3/uL (120.0-450.0) 08/15/17 06:00 MPV 10.9 fl (7.0-11.0) 08/15/17 06:00 Gran % 75.3 % (50.0-68.0) H 08/15/17 06:00 Lymph % (Auto) 16.2 % (22.0-35.0) L 08/15/17 06:00 Whiteside % (Auto) 5.5 % (1.0-6.0) 08/15/17 06:00 Eos % (Auto) 2.7 % (1.5-5.0) 08/15/17 06:00 Baso % (Auto) 0.3 % (0.0-3.0) 08/15/17 06:00 Gran # 5.89 (1.4-6.5) 08/15/17 06:00 Lymph # (Auto) 1.3 (1.2-3.4) 08/15/17 06:00 Whiteside # (Auto) 0.4 (0.1-0.6) 08/15/17 06:00 Eos # (Auto) 0.2 (0.0-0.7) 08/15/17 06:00 Baso # (Auto) 0.02 K/mm3 (0.0-2.0) 08/15/17 06:00 Sodium 140 mmol/L (132-148) 08/15/17 06:00 Potassium 3.7 mmol/L (3.6-5.0) 08/15/17 06:00 Chloride 103 mmol/L (98-107) 08/15/17 06:00 Carbon Dioxide 26 mmol/L (21-33) 08/15/17 06:00 Anion Gap 15 (10-20) 08/15/17 06:00 BUN 13 mg/dL (7-21) 08/15/17 06:00 Creatinine 0.8 mg/dl (0.8-1.5) 08/15/17 06:00 Est GFR ( Amer) > 60 08/15/17 06:00 Est GFR (Non-Af Amer) > 60 08/15/17 06:00 POC Glucose (mg/dL) 118 mg/dL (65-110) H 08/12/17 18:32 Random Glucose 90 mg/dL (70-110) 08/15/17 06:00 Calcium 9.2 mg/dL (8.4-10.5) 08/15/17 06:00 Magnesium 1.8 mg/dL (1.7-2.2) 08/14/17 05:30 Total Bilirubin 1.3 mg/dL (0.2-1.3) 08/15/17 06:00 AST 368 U/L (17-59) H D 08/15/17 06:00 ALT 256 U/L (7-56) H 08/15/17 06:00 Alkaline Phosphatase 70 U/L (38-126) 08/15/17 06:00 Total Protein 7.1 g/dL (5.8-8.3) 08/15/17 06:00 Albumin 4.3 g/dL (3.0-4.8) 08/15/17 06:00 Globulin 2.8 gm/dL 08/15/17 06:00 Albumin/Globulin Ratio 1.5 (1.1-1.8) 08/15/17 06:00 Urine Color Yellow (YELLOW) 08/12/17 10:00 Urine Appearance Sl cloudy (CLEAR) 08/12/17 10:00 Urine pH 6.0 (4.7-8.0) 08/12/17 10:00 Ur Specific [place] 1.025 (1.005-1.035) 08/12/17 10:00 Urine Protein 30 mg/dL (<30 mg/dL) H 08/12/17 10:00 Urine Glucose (UA) Negative mg/dL (NEGATIVE) 08/12/17 10:00 Urine Ketones 15 mg/dL (NEGATIVE) H 08/12/17 10:00 Urine Blood Negative (NEGATIVE) 08/12/17 10:00 Urine Nitrate Negative (NEGATIVE) 08/12/17 10:00 Urine Bilirubin Negative (NEGATIVE) 08/12/17 10:00 Urine Urobilinogen 1.0 E.U./dL (<1 E.U./dL) H 08/12/17 10:00 Ur Leukocyte Esterase Negative Sanjay/uL (NEGATIVE) 08/12/17 10:00 Urine RBC 0 - 2 /hpf (0-2) 08/12/17 10:00 Urine WBC 0 - 2 /hpf (0-6) 08/12/17 10:00 Ur Epithelial Cells None /hpf (0-5) 08/12/17 10:00 Amorphous Sediment Small 08/12/17 10:00 Urine Bacteria Many (NEG) 08/12/17 10:00 Urine Other Fiber 08/12/17 10:00 Salicylates < 1 mg/dL (2.0-20.0) L 08/12/17 08:45 Urine Opiates Screen Negative (NEGATIVE) 08/12/17 10:00 Urine Methadone Screen Negative (NEGATIVE) 08/12/17 10:00 Acetaminophen < 10.0 ug/ml (10.0-20.0) L 08/12/17 08:45 Ur Barbiturates Screen Negative (NEGATIVE) 08/12/17 10:00 Ur Phencyclidine Scrn Negative (NEGATIVE) 08/12/17 10:00 Ur Amphetamines Screen Negative (NEGATIVE) 08/12/17 10:00 U Benzodiazepines Scrn Positive (NEGATIVE) 08/12/17 10:00 U Oth Cocaine Metabols Negative (NEGATIVE) 08/12/17 10:00 U Cannabinoids Screen Negative (NEGATIVE) 08/12/17 10:00 Alcohol, Quantitative 188 mg/dL (0-10) H 08/12/17 08:45 Discharge Plan - Follow Up Plan Condition: FAIR Disposition: HOME/ ROUTINE
--- NOTE | 2017-08-15 13:17 | CON ---
DATE: HISTORY OF PRESENT ILLNESS: The patient is a 46-year-old male with a history of schizophrenia and alcohol use disorder who is being seen by psychiatrist on the medical floor while he is being treated for alcohol withdrawal syndrome. The patient is seen by psychiatrist due to report of depression and paranoia. I reviewed Dr. Patel's note, which recommended that the patient be transferred to the psychiatric unit if the patient is agreeable to admission and I spoke to the patient at bedside today and he is alert and oriented to month, year, location and circumstances. The patient's thought process is coherent. He reports continued depression, low mood, motivation, energy. He reports that he denies having any hallucinations and his responses are generally related to questioning. He is tolerating current medications really well and denies any side effects. Presently, he denies having any suicidal thoughts, but he does voice to have further psychiatric stabilization on the unit. Denies any discomfort at this time. His tremors are better. Insight and judgment are improving. Though he is still guarded, he does not look hypervigilant or acutely delusional or paranoid. He also denies having persecutory thoughts during the course of my conversation. Labs and vitals were reviewed by this provider. RELEVANT PSYCHIATRIC MEDICATIONS: Include Ativan 1 mg p.o. every 8 hours, Zoloft 50 mg daily, trazodone 100 mg at bedtime, Geodon 20 mg twice a day and nightly. IMPRESSION: Schizo-affective disorder by history; alcohol use disorder, severe. RECOMMENDATIONS: We will continue with current treatment and plan with Ativan, Zoloft, trazodone and Geodon. The patient is to be transferred to the Psychiatric unit once he is medically stabilized. The patient continues to be in agreement with this plan. Lexis Arreaga MD
--- NOTE | 2017-08-15 15:07 | CP.PCM.PN ---
<Jasmyne Umanzor - Last Filed: 08/15/17 15:03> Subjective - Date & Time of Evaluation Date of Evaluation: 08/15/17 Time of Evaluation: 15:04 - Subjective Subjective: Patient seen and examined. No overnight events reported. No complaints at this time. Objective - Vital Signs/Intake and Output Vital Signs (last 24 hours): Temp Pulse Resp BP Pulse Ox 98.0 F 87 17 174/118 H 96 08/15/17 06:00 08/15/17 06:00 08/15/17 06:00 08/15/17 09:43 08/15/17 06:00 Intake and Output: 08/15/17 08/15/17 06:59 18:59 Intake Total 1300 Balance 1300 - Medications Medications: Current Medications Atenolol (Tenormin) 12.5 mg PO DAILY [facility] Last Admin: 08/15/17 09:43 Dose: 12.5 mg Folic Acid (Folic Acid) 1 mg PO DAILY [facility] Last Admin: 08/15/17 09:42 Dose: 1 mg Levalbuterol HCl (Xopenex) 1.25 mg IH TIDRESP [facility] Last Admin: 08/15/17 13:37 Dose: 1.25 mg Lisinopril (Zestril) 5 mg PO DAILY [facility] Last Admin: 08/15/17 09:44 Dose: Not Given Lorazepam (Ativan) 1 mg IVP Q2 PRN; Protocol PRN Reason: Symptoms of alcohol withdrawl Lorazepam (Ativan) 1 mg PO Q8 [facility] PRN Reason: Protocol Last Admin: 08/15/17 14:18 Dose: 1 mg Multivitamins (Thera Tab) 1 tab PO 0800 [facility] Last Admin: 08/15/17 09:43 Dose: 1 tab Ondansetron HCl (Zofran Inj) 4 mg IVP Q6H PRN PRN Reason: Nausea/Vomiting Last Admin: 08/13/17 03:36 Dose: 4 mg Prednisone (Prednisone Tab) 40 mg PO DAILY [facility] Last Admin: 08/15/17 09:43 Dose: 40 mg Sertraline HCl (Zoloft) 50 mg PO DAILY [facility] Last Admin: 08/15/17 09:43 Dose: 50 mg Thiamine HCl (Vitamin B1 Tab) 100 mg PO DAILY [facility] Last Admin: 08/14/17 09:37 Dose: 100 mg Trazodone HCl (Desyrel) 100 mg PO HS [facility] Last Admin: 08/14/17 22:08 Dose: 100 mg Ziprasidone (Geodon Cap) 20 mg PO BID [facility] PRN Reason: Protocol Last Admin: 08/15/17 09:43 Dose: 20 mg Ziprasidone (Geodon Cap) 20 mg PO HS [facility] PRN Reason: Protocol Last Admin: 08/14/17 22:08 Dose: 20 mg Ziprasidone (Geodon Inj) 20 mg IM Q8H PRN; Protocol PRN Reason: severe agitation - Labs Labs: 08/15/17 06:00 08/15/17 06:00 - Additional Findings Additional findings: - Constitutional Appears: No Acute Distress - Head Exam Head Exam: ATRAUMATIC, NORMOCEPHALIC - Eye Exam Eye Exam: EOMI - ENT Exam ENT Exam: Mucous Membranes Moist - Neck Exam Neck exam: Negative for: Tenderness - Respiratory Exam Respiratory Exam: Wheezing bilateral lobes; absent: Accessory Muscle Use, Respiratory Distress - Cardiovascular Exam Cardiovascular Exam: REGULAR RHYTHM, +S1, +S2 - GI/Abdominal Exam GI & Abdominal Exam: Normal Bowel Sounds, Soft. absent: Distended, Firm, Guarding, Rebound, Rigid, Tenderness - Extremities Exam Extremities exam: Negative for: calf tenderness - Neurological Exam Neurological exam: Patient is awake, alert, responds to verbal stimuli, answers questions appropriately, follows commands, and moves extremities past midline, trace tremor. - Psychiatric Exam Psychiatric exam: Normal Affect, Normal Mood - Skin Skin Exam: Dry, Intact, Normal Color, Warm Assessment and Plan - Assessment and Plan (Free Text) Assessment: Patient is a 46 year old male with a past medical history of paranoid schizophrenia, hypertension, and seizure who was admitted for evaluation and treatment of negative thoughts and excess alcohol intake. Plan: ETOH Intoxication, Pending Withdrawal - CIWA 2 this AM - ativan changed to 1mg q8 scheduled - c/w ativan 1mg q2 prn symptoms of ETOH withdrawl - aspiration precautions - seizure precautions - multivitamin, folate, b12 COPD, Tobacco Abuse - xopenox 1.25mg TID - prednisone 40mg PO 1 tablet daily Paranoid Schizophrenia (Stable) - psych consulted- appreciate recommendations Trazadone 100 HS, Zoloft 50 Daily, Geodon 20 HS, 20 Q8 PRN, and 20 BID Elevated LFTs (Acute) - likely secondary to ETOH abuse - will monitor closely Nausea/Vomitting (Resolved) - likely secondary to ETOH - prn zofran, QTc- 457 Insomina - trazadone 100mg QHS prn insomnia Hx of HTN - not taking antihypertensives at home - c/w lisinopril 5 mg PO daily Patient seen and discussed with Attending Jasmyne Umanzor, PGY-1 <Antonia Mcduffie B - Last Filed: 08/15/17 16:57> Objective - Vital Signs/Intake and Output Vital Signs (last 24 hours): Temp Pulse Resp BP Pulse Ox 98.0 F 86 17 174/118 H 96 08/15/17 06:00 08/15/17 14:00 08/15/17 06:00 08/15/17 09:43 08/15/17 06:00 Intake and Output: 08/15/17 08/15/17 06:59 18:59 Intake Total 1300 Balance 1300 - Medications Medications: Current Medications Atenolol (Tenormin) 12.5 mg PO DAILY [facility] Last Admin: 08/15/17 09:43 Dose: 12.5 mg Folic Acid (Folic Acid) 1 mg PO DAILY [facility] Last Admin: 08/15/17 09:42 Dose: 1 mg Levalbuterol HCl (Xopenex) 1.25 mg IH TIDRESP [facility] Last Admin: 08/15/17 13:37 Dose: 1.25 mg Lisinopril (Zestril) 5 mg PO DAILY [facility] Last Admin: 08/15/17 09:44 Dose: Not Given Lorazepam (Ativan) 1 mg IVP Q2 PRN; Protocol PRN Reason: Symptoms of alcohol withdrawl Lorazepam (Ativan) 1 mg PO Q8 [facility] PRN Reason: Protocol Last Admin: 08/15/17 14:18 Dose: 1 mg Multivitamins (Thera Tab) 1 tab PO 0800 [facility] Last Admin: 08/15/17 09:43 Dose: 1 tab Ondansetron HCl (Zofran Inj) 4 mg IVP Q6H PRN PRN Reason: Nausea/Vomiting Last Admin: 08/13/17 03:36 Dose: 4 mg Prednisone (Prednisone Tab) 30 mg PO DAILY [facility] Sertraline HCl (Zoloft) 50 mg PO DAILY [facility] Last Admin: 08/15/17 09:43 Dose: 50 mg Thiamine HCl (Vitamin B1 Tab) 100 mg PO DAILY [facility] Last Admin: 08/15/17 15:26 Dose: Not Given Trazodone HCl (Desyrel) 100 mg PO HS [facility] Last Admin: 08/14/17 22:08 Dose: 100 mg Ziprasidone (Geodon Cap) 20 mg PO BID [facility] PRN Reason: Protocol Last Admin: 08/15/17 09:43 Dose: 20 mg Ziprasidone (Geodon Cap) 20 mg PO HS [facility] PRN Reason: Protocol Last Admin: 08/14/17 22:08 Dose: 20 mg Ziprasidone (Geodon Inj) 20 mg IM Q8H PRN; Protocol PRN Reason: severe agitation - Labs Labs: 08/15/17 06:00 08/15/17 06:00 Attending/Attestation - Attestation I have personally seen and examined this patient.: Yes I have fully participated in the care of the patient.: Yes I have reviewed all pertinent clinical information, including history, physical exam and plan: Yes Notes (Text): I have seen and examined the patient at bedside. Agree with the above note dictated by the resident. Vitals, labs and imaging reviewed by me. Psych consult appreciated. Continue tapering doses of ativan. Continue geodon as per psych. Will monitor closely for alcohol withdrawal. Patient is requesting to be sent to psych unit. There is a rise in LFts today most likely due to alcohol abuse. Hep panel and abdomen US done in May was negative. Patient does not have any RUQ pain or tenderness. Will continue to follow the patient. Upon discharge patient will follow up with Dr Duque.
[2017-08-16 06:50] LABS: BASO # 0.02 K/mm3 (0.0-2.0); BASO % 0.2 % (0.0-3.0); EOS # 0.3 (0.0-0.7); EOS % 3.4 % (1.5-5.0); GRAN # 6.46 (1.4-6.5); GRAN % 72.5 % (50.0-68.0); HEMOGLOBIN 13.8 g/dL (14.0-18.0); LYMPH # 1.6 (1.2-3.4); LYMPH % 17.7 % (22.0-35.0); MEAN CELL VOLUME 97.1 fl (80.0-105.0); MEAN CORPUSCULAR HEMOGLOBIN 33.6 pg (25.0-35.0); MEAN CORPUSCULAR HGB CONC 34.6 g/dl (31.0-37.0); MONO # 0.6 (0.1-0.6); MONO % 6.2 % (1.0-6.0); RBC 4.11 10^6/uL (3.5-6.1); RED CELL DISTRIBUTION WIDTH 14.8 % (11.5-14.5); WHITE BLOOD COUNT 8.9 10^3/ul (4.5-11.0)
[2017-08-16 06:55] LABS: ALB/GLOB RATIO 1.5 (1.1-1.8); ALBUMIN 3.8 g/dL (3.0-4.8); ALT/SGPT 353 U/L (7-56); AST/SGOT 357 U/L (17-59); BLOOD UREA NITROGEN 13 mg/dL (7-21); CALCIUM 8.9 mg/dL (8.4-10.5); GFR AFRICAN-AMERICAN > 60; GFR NON-AFRICAN AMERICAN > 60
[2017-08-16] MEDS: Levalbuterol 1.25 MG/3 ML Inhal Soln UD IH SCH ×3 (08:02→20:40)
[2017-08-16] MEDS: Multivitamin Therapeutic Tab PO SCH (10:20)
[2017-08-16] MEDS ORDERED: guaiFENesin 200 mg/10 ml Syrup UD PO PRN (12:04)
--- NOTE | 2017-08-16 14:40 | CP.PCM.PN ---
<Jasmyne Umanzor - Last Filed: 08/16/17 14:37> Subjective - Date & Time of Evaluation Date of Evaluation: 08/16/17 Time of Evaluation: 07:45 - Subjective Subjective: Patient seen and examined at bedside. No overnight events reported. Patient reports worsening of cough. No other complaints at this time. Objective - Vital Signs/Intake and Output Vital Signs (last 24 hours): Temp Pulse Resp BP Pulse Ox 97.7 F 75 19 141/98 H 97 08/16/17 06:00 08/16/17 06:00 08/16/17 06:00 08/16/17 06:00 08/16/17 06:00 Intake and Output: 08/16/17 08/16/17 06:59 18:59 Intake Total 540 Balance 540 - Medications Medications: Current Medications Atenolol (Tenormin) 12.5 mg PO DAILY [facility] Last Admin: 08/16/17 10:17 Dose: 12.5 mg Azithromycin (Zithromax) 250 mg PO DAILY [facility] PRN Reason: Protocol Stop: 08/20/17 10:01 Folic Acid (Folic Acid) 1 mg PO DAILY [facility] Last Admin: 08/16/17 10:16 Dose: 1 mg Guaifenesin (Robitussin) 200 mg PO Q6H PRN PRN Reason: Cough and congestion Levalbuterol HCl (Xopenex) 1.25 mg IH TIDRESP [facility] Last Admin: 08/16/17 14:02 Dose: 1.25 mg Lisinopril (Zestril) 5 mg PO DAILY [facility] Last Admin: 08/16/17 10:21 Dose: 5 mg Lorazepam (Ativan) 1 mg IVP Q2 PRN; Protocol PRN Reason: Symptoms of alcohol withdrawl Lorazepam (Ativan) 1 mg PO Q8 [facility] PRN Reason: Protocol Last Admin: 08/16/17 13:17 Dose: 1 mg Methylprednisolone (Solu-Medrol) 40 mg IVP DAILY [facility] Multivitamins (Thera Tab) 1 tab PO 0800 [facility] Last Admin: 08/16/17 10:20 Dose: 1 tab Ondansetron HCl (Zofran Inj) 4 mg IVP Q6H PRN PRN Reason: Nausea/Vomiting Last Admin: 08/13/17 03:36 Dose: 4 mg Sertraline HCl (Zoloft) 50 mg PO DAILY [facility] Last Admin: 08/16/17 10:21 Dose: 50 mg Thiamine HCl (Vitamin B1 Tab) 100 mg PO DAILY [facility] Last Admin: 08/16/17 10:20 Dose: 100 mg Trazodone HCl (Desyrel) 100 mg PO HS [facility] Last Admin: 08/15/17 21:52 Dose: 100 mg Ziprasidone (Geodon Cap) 20 mg PO BID [facility] PRN Reason: Protocol Last Admin: 08/16/17 10:16 Dose: 20 mg Ziprasidone (Geodon Cap) 20 mg PO HS [facility] PRN Reason: Protocol Last Admin: 08/15/17 21:51 Dose: 20 mg Ziprasidone (Geodon Inj) 20 mg IM Q8H PRN; Protocol PRN Reason: severe agitation - Labs Labs: 08/16/17 06:00 08/16/17 06:00 - Additional Findings Additional findings: - Constitutional Appears: No Acute Distress - Head Exam Head Exam: ATRAUMATIC, NORMOCEPHALIC - Eye Exam Eye Exam: EOMI - ENT Exam ENT Exam: Mucous Membranes Moist - Neck Exam Neck exam: Negative for: Tenderness - Respiratory Exam Respiratory Exam: Wheezing bilateral lobes; absent: Accessory Muscle Use, Respiratory Distress - Cardiovascular Exam Cardiovascular Exam: REGULAR RHYTHM, +S1, +S2 - GI/Abdominal Exam GI & Abdominal Exam: Normal Bowel Sounds, Soft. absent: Distended, Firm, Guarding, Rebound, Rigid, Tenderness - Extremities Exam Extremities exam: Negative for: calf tenderness - Neurological Exam Neurological exam: Patient is awake, alert, responds to verbal stimuli, answers questions appropriately, follows commands, and moves extremities past midline, No Tremor - Psychiatric Exam Psychiatric exam: Normal Affect, Normal Mood - Skin Skin Exam: Dry, Intact, Normal Color, Warm Assessment and Plan - Assessment and Plan (Free Text) Assessment: Patient is a 46 year old male with a past medical history of paranoid schizophrenia, hypertension, and seizure who was admitted for evaluation and treatment of negative thoughts and excess alcohol intake. Plan: ETOH Intoxication/Withdrawal (Stable) - CIWA 1 this AM - Ativan 1 Q8H [facility]. Will defer to Psych for any changes in management. - c/w ativan 1mg q2 prn symptoms of ETOH withdrawl - aspiration precautions - seizure precautions - multivitamin, folate, b12 COPD, Tobacco Abuse - xopenox 1.25mg TID - Solu-Medrol 40 Daily Paranoid Schizophrenia (Stable) - psych consulted- appreciate recommendations Trazadone 100 HS, Zoloft 50 Daily, Geodon 20 HS, 20 Q8 PRN, and 20 BID - Pending Transfer to Psych once medically stabilized. Elevated LFTs (Acute) - likely secondary to ETOH abuse - AST Dec. ALT Inc. - will cont. monitor closely Nausea/Vomitting (Resolved) - likely secondary to ETOH - prn zofran, QTc- 457 [place] - trazadone 100mg QHS prn insomnia Hx of HTN - not taking antihypertensives at home - c/w lisinopril 5 mg PO daily Dispo: Patient to be transferred to Psych once LFT's begin downtrending. Patient seen and discussed with Attending Jasmyne Umanzor, PGY-1 <Antonia Mcduffie B - Last Filed: 08/16/17 15:04> Objective - Vital Signs/Intake and Output Vital Signs (last 24 hours): Temp Pulse Resp BP Pulse Ox 97.7 F 75 19 141/98 H 97 08/16/17 06:00 08/16/17 06:00 08/16/17 06:00 08/16/17 06:00 08/16/17 06:00 Intake and Output: 08/16/17 08/16/17 06:59 18:59 Intake Total 540 Balance 540 - Medications Medications: Current Medications Atenolol (Tenormin) 12.5 mg PO DAILY [facility] Last Admin: 08/16/17 10:17 Dose: 12.5 mg Azithromycin (Zithromax) 250 mg PO DAILY [facility] PRN Reason: Protocol Stop: 08/20/17 10:01 Folic Acid (Folic Acid) 1 mg PO DAILY [facility] Last Admin: 08/16/17 10:16 Dose: 1 mg Guaifenesin (Robitussin) 200 mg PO Q6H PRN PRN Reason: Cough and congestion Levalbuterol HCl (Xopenex) 1.25 mg IH TIDRESP [facility] Last Admin: 08/16/17 14:02 Dose: 1.25 mg Lisinopril (Zestril) 5 mg PO DAILY [facility] Last Admin: 08/16/17 10:21 Dose: 5 mg Lorazepam (Ativan) 1 mg IVP Q2 PRN; Protocol PRN Reason: Symptoms of alcohol withdrawl Lorazepam (Ativan) 1 mg PO Q8 [facility] PRN Reason: Protocol Last Admin: 08/16/17 13:17 Dose: 1 mg Methylprednisolone (Solu-Medrol) 40 mg IVP DAILY [facility] Multivitamins (Thera Tab) 1 tab PO 0800 [facility] Last Admin: 08/16/17 10:20 Dose: 1 tab Ondansetron HCl (Zofran Inj) 4 mg IVP Q6H PRN PRN Reason: Nausea/Vomiting Last Admin: 08/13/17 03:36 Dose: 4 mg Sertraline HCl (Zoloft) 50 mg PO DAILY [facility] Last Admin: 08/16/17 10:21 Dose: 50 mg Thiamine HCl (Vitamin B1 Tab) 100 mg PO DAILY [facility] Last Admin: 08/16/17 10:20 Dose: 100 mg Trazodone HCl (Desyrel) 100 mg PO HS [facility] Last Admin: 08/15/17 21:52 Dose: 100 mg Ziprasidone (Geodon Cap) 20 mg PO BID [facility] PRN Reason: Protocol Last Admin: 08/16/17 10:16 Dose: 20 mg Ziprasidone (Geodon Cap) 20 mg PO HS [facility] PRN Reason: Protocol Last Admin: 08/15/17 21:51 Dose: 20 mg Ziprasidone (Geodon Inj) 20 mg IM Q8H PRN; Protocol PRN Reason: severe agitation - Labs Labs: 08/16/17 06:00 08/16/17 06:00 Attending/Attestation - Attestation I have personally seen and examined this patient.: Yes I have fully participated in the care of the patient.: Yes I have reviewed all pertinent clinical information, including history, physical exam and plan: Yes Notes (Text): I have seen and examined the patient at bedside. Agree with the above note dictated by the resident. Vitals, labs and imaging reviewed by me. Psych consult appreciated. Continue tapering doses of ativan. Continue geodon as per psych. Will monitor closely for alcohol withdrawal. Patient is requesting to be sent to psych unit. There is a rise in LFts today most likely due to alcohol abuse. Hep panel and abdomen US done in May was negative. Patient does not have any RUQ pain or tenderness. Will continue to follow the patient and monitor LFTs closely. Upon discharge patient will follow up with Dr Duque.
[2017-08-16] MEDS: MethylPREDNISolone 40 mg Vial IVP SCH (18:08)
--- NOTE | 2017-08-16 20:43 | CON ---
DATE: HISTORY OF PRESENT ILLNESS: Patient is a 46-year-old male with a history of schizophrenia, now for severe alcohol use disorder, who is being seen by Psychiatry in the medical floor while he is being treated for alcohol withdrawal syndrome. Patient was supposed to be transferred to the psychiatric unit yesterday, 08/15/2017; however, he was kept on the medical floor to monitor LFTs as it continued to be elevated. I reviewed recent notes and met with the patient at bedside again today and he continues to be agreeable to admission to treat his depression. He continues to be alert and oriented to month, year, location, and circumstances. He is coherent and he continues to deny having hallucinations and has been in fairly good control in the unit, though still depressed and anxious. Presently, he denies having any suicidal thoughts and thoughts to harm others. Delusions were not listed in this morning's followup. Denies any discomfort at this time and alcohol withdrawal symptoms are improving. Labs and vitals were reviewed by this provider today. Relevant psychiatric medications include Ativan 1 mg p.o. every 8, Zoloft 50 mg daily, trazodone 100 at bedtime, Geodon 20 mg p.o. b.i.d. and nightly. IMPRESSION: Schizoaffective disorder by history; alcohol use disorder, severe, in current withdrawal. RECOMMENDATIONS: We will continue with current treatment and plan with Ativan, Zoloft, trazodone, Geodon. Patient to be transferred to the psychiatric unit once he is medically stabilized. Patient continues to be in agreement with this recommendation. However, if the patient changes his mind, he can be discharged as he is not an acute danger to himself or others. Lexis Arreaga MD
[2017-08-17 06:41] LABS: BASO # 0.01 K/mm3 (0.0-2.0); BASO % 0.1 % (0.0-3.0); EOS # 0.3 (0.0-0.7); EOS % 3.2 % (1.5-5.0); GRAN # 6.94 (1.4-6.5); GRAN % 71.6 % (50.0-68.0); HEMOGLOBIN 13.9 g/dL (14.0-18.0); LYMPH # 1.7 (1.2-3.4); LYMPH % 17.9 % (22.0-35.0); MEAN CELL VOLUME 97.3 fl (80.0-105.0); MEAN CORPUSCULAR HEMOGLOBIN 33.7 pg (25.0-35.0); MEAN CORPUSCULAR HGB CONC 34.7 g/dl (31.0-37.0); MEAN PLATELET VOLUME 11.1 fl (7.0-11.0); MONO # 0.7 (0.1-0.6); MONO % 7.2 % (1.0-6.0); RBC 4.12 10^6/uL (3.5-6.1); RED CELL DISTRIBUTION WIDTH 14.8 % (11.5-14.5); WHITE BLOOD COUNT 9.7 10^3/ul (4.5-11.0)
[2017-08-17 06:57] LABS: ALB/GLOB RATIO 1.5 (1.1-1.8); ALT/SGPT 460 U/L (7-56); AST/SGOT 410 U/L (17-59); BLOOD UREA NITROGEN 16 mg/dL (7-21); CALCIUM 9.3 mg/dL (8.4-10.5); GFR AFRICAN-AMERICAN > 60; GFR NON-AFRICAN AMERICAN > 60
[2017-08-17] MEDS: Levalbuterol 1.25 MG/3 ML Inhal Soln UD IH SCH ×2 (07:41→21:17)
[2017-08-17] MEDS: Multivitamin Therapeutic Tab PO SCH (09:02)
[2017-08-17] MEDS: MethylPREDNISolone 40 mg Vial IVP SCH (10:01)
--- NOTE | 2017-08-17 10:17 | CP.PCM.DIS ---
Provider - Provider Date of Admission: 08/12/17 13:34 Attending physician: Nando Reyes MD Time Spent in preparation of Discharge (in minutes): 45 Diagnosis - Discharge Diagnosis (1) Alcohol withdrawal Status: Resolved Priority: Medium (2) Paranoid schizophrenia Status: Chronic Priority: Medium Hospital Course - Lab Results Lab Results: Most Recent Lab Values WBC 9.7 10^3/ul (4.5-11.0) 08/17/17 05:30 RBC 4.12 10^6/uL (3.5-6.1) 08/17/17 05:30 Hgb 13.9 g/dL (14.0-18.0) L 08/17/17 05:30 Hct 40.1 % (42.0-52.0) L 08/17/17 05:30 MCV 97.3 fl (80.0-105.0) 08/17/17 05:30 MCH 33.7 pg (25.0-35.0) 08/17/17 05:30 MCHC 34.7 g/dl (31.0-37.0) 08/17/17 05:30 RDW 14.8 % (11.5-14.5) H 08/17/17 05:30 Plt Count 241 10^3/uL (120.0-450.0) 08/17/17 05:30 MPV 11.1 fl (7.0-11.0) H 08/17/17 05:30 Gran % 71.6 % (50.0-68.0) H 08/17/17 05:30 Lymph % (Auto) 17.9 % (22.0-35.0) L 08/17/17 05:30 [place] % (Auto) 7.2 % (1.0-6.0) H 08/17/17 05:30 Eos % (Auto) 3.2 % (1.5-5.0) 08/17/17 05:30 Baso % (Auto) 0.1 % (0.0-3.0) 08/17/17 05:30 Gran # 6.94 (1.4-6.5) H 08/17/17 05:30 Lymph # (Auto) 1.7 (1.2-3.4) 08/17/17 05:30 [place] # (Auto) 0.7 (0.1-0.6) H 08/17/17 05:30 Eos # (Auto) 0.3 (0.0-0.7) 08/17/17 05:30 Baso # (Auto) 0.01 K/mm3 (0.0-2.0) 08/17/17 05:30 Sodium 141 mmol/L (132-148) 08/17/17 05:30 Potassium 3.9 mmol/L (3.6-5.0) 08/17/17 05:30 Chloride 104 mmol/L (98-107) 08/17/17 05:30 Carbon Dioxide 26 mmol/L (21-33) 08/17/17 05:30 Anion Gap 15 (10-20) 08/17/17 05:30 BUN 16 mg/dL (7-21) 08/17/17 05:30 Creatinine 0.9 mg/dl (0.8-1.5) 08/17/17 05:30 Est GFR ( Amer) > 60 08/17/17 05:30 Est GFR (Non-Af Amer) > 60 08/17/17 05:30 POC Glucose (mg/dL) 81 mg/dL (65-110) 08/17/17 07:22 Random Glucose 91 mg/dL (70-110) 08/17/17 05:30 Calcium 9.3 mg/dL (8.4-10.5) 08/17/17 05:30 Magnesium 1.8 mg/dL (1.7-2.2) 08/14/17 05:30 Total Bilirubin 1.2 mg/dL (0.2-1.3) 08/17/17 05:30 AST 410 U/L (17-59) H 08/17/17 05:30 ALT 460 U/L (7-56) H 08/17/17 05:30 Alkaline Phosphatase 77 U/L (38-126) 08/17/17 05:30 Total Protein 6.7 g/dL (5.8-8.3) 08/17/17 05:30 Albumin 4.0 g/dL (3.0-4.8) 08/17/17 05:30 Globulin 2.7 gm/dL 08/17/17 05:30 Albumin/Globulin Ratio 1.5 (1.1-1.8) 08/17/17 05:30 Urine Color Yellow (YELLOW) 08/12/17 10:00 Urine Appearance Sl cloudy (CLEAR) 08/12/17 10:00 Urine pH 6.0 (4.7-8.0) 08/12/17 10:00 Ur Specific [place] 1.025 (1.005-1.035) 08/12/17 10:00 Urine Protein 30 mg/dL (<30 mg/dL) H 08/12/17 10:00 Urine Glucose (UA) Negative mg/dL (NEGATIVE) 08/12/17 10:00 Urine Ketones 15 mg/dL (NEGATIVE) H 08/12/17 10:00 Urine Blood Negative (NEGATIVE) 08/12/17 10:00 Urine Nitrate Negative (NEGATIVE) 08/12/17 10:00 Urine Bilirubin Negative (NEGATIVE) 08/12/17 10:00 Urine Urobilinogen 1.0 E.U./dL (<1 E.U./dL) H 08/12/17 10:00 Ur Leukocyte Esterase Negative Sanjay/uL (NEGATIVE) 08/12/17 10:00 Urine RBC 0 - 2 /hpf (0-2) 08/12/17 10:00 Urine WBC 0 - 2 /hpf (0-6) 08/12/17 10:00 Ur Epithelial Cells None /hpf (0-5) 08/12/17 10:00 Amorphous Sediment Small 08/12/17 10:00 Urine Bacteria Many (NEG) 08/12/17 10:00 Urine Other Fiber 08/12/17 10:00 Salicylates < 1 mg/dL (2.0-20.0) L 08/12/17 08:45 Urine Opiates Screen Negative (NEGATIVE) 08/12/17 10:00 Urine Methadone Screen Negative (NEGATIVE) 08/12/17 10:00 Acetaminophen < 10.0 ug/ml (10.0-20.0) L 08/12/17 08:45 Ur Barbiturates Screen Negative (NEGATIVE) 08/12/17 10:00 Ur Phencyclidine Scrn Negative (NEGATIVE) 08/12/17 10:00 Ur Amphetamines Screen Negative (NEGATIVE) 08/12/17 10:00 U Benzodiazepines Scrn Positive (NEGATIVE) 08/12/17 10:00 U Oth Cocaine Metabols Negative (NEGATIVE) 08/12/17 10:00 U Cannabinoids Screen Negative (NEGATIVE) 08/12/17 10:00 Alcohol, Quantitative 188 mg/dL (0-10) H 08/12/17 08:45 - Hospital Course Hospital Course: Patient is a 46 year old male with a past medical history of paranoid schizophrenia and hypertension who was admitted for evaluation and treatment of negative thoughts and excess alcohol intake. With the use of physical examinations, lab work, and imaging the patient was diagnosed with and treated for alcohol withdrawl, COPD, HTN, and an acute episode of paranoid schizophrenia secondary to medication noncompliance. During their hospital stay the patient was seen by psychiatry (Dr. Patel) and their recommendations were both appreciated and utilized in the care for this patient. During their hospital stay the patient underwent a chest xray which was reviewed, appreciated, and utilized in the management of the patients clinical course. The chest xray revealed no active disease. Patient was treated with ativan, azithromycin, IV steroids amongst other empiric/ therapeutic medications. At this time the patient is medically stable for discharge. Patient understands and appreciates discharge plan. Patient instructed to follow up with primary care physicians and referrals within three to five days from discharge. Furthermore, the patient is instructed to take medications as prescribed and to return to emergency room for evaluation of intractable headache, fever, chills, dizziness, chest pain, shortness of breath , abdominal pain, nausea, vomiting, diarrhea, constipation, and urinary symptoms. This is a brief summary of the patients hospital course. Please see patient chart for full details. Discharge Exam - Additional Findings Additional findings: Physical Examination: - Constitutional Appears: No Acute Distress - Head Exam Head Exam: ATRAUMATIC, NORMOCEPHALIC - Eye Exam Eye Exam: EOMI - ENT Exam ENT Exam: Mucous Membranes Moist - Neck Exam Neck exam: Negative for: Tenderness - Respiratory Exam Respiratory Exam: Wheezing bilateral lobes; absent: Accessory Muscle Use, Respiratory Distress - Cardiovascular Exam Cardiovascular Exam: REGULAR RHYTHM, +S1, +S2 - GI/Abdominal Exam GI & Abdominal Exam: Normal Bowel Sounds, Soft. absent: Distended, Firm, Guarding, Rebound, Rigid, Tenderness - Extremities Exam Extremities exam: Negative for: calf tenderness mild bilateral upper extremity tremor - Neurological Exam Neurological exam: Patient is awake, alert, responds to verbal stimuli, answers questions appropriately, follows commands, and moves extremities past midline - Psychiatric Exam Psychiatric exam: Normal Affect, Normal Mood - Skin Skin Exam: Dry, Intact, Normal Color, Warm Discharge Plan - Follow Up Plan Condition: FAIR Disposition: HOME/ ROUTINE Instructions: Alcohol Withdrawal
--- NOTE | 2017-08-17 10:24 | CP.PCM.PN ---
<Terry Muniz - Last Filed: 08/17/17 11:11> Subjective - Date & Time of Evaluation Date of Evaluation: 08/17/17 Time of Evaluation: 07:40 - Subjective Subjective: Subjective: Patient seen and examined at bedside. Resting comfortably in bed. No acute events overnight. States presenting symptoms have resolved. Expresses desire to continue care in psychiatry care. Denies fever, chills, chest pain, shortness of breath at rest, abdominal pain, diarrhea, constipation, and urinary symptoms. Denies SI and HI. Denies auditory and visual hallucinations. 12-point review of systems negative except as indicated in the HPI Physical Examination: - Constitutional Appears: No Acute Distress - Head Exam Head Exam: ATRAUMATIC, NORMOCEPHALIC - Eye Exam Eye Exam: EOMI - ENT Exam ENT Exam: Mucous Membranes Moist - Neck Exam Neck exam: Negative for: Tenderness - Respiratory Exam Respiratory Exam: absent: Accessory Muscle Use, Respiratory Distress - Cardiovascular Exam Cardiovascular Exam: REGULAR RHYTHM, +S1, +S2 - GI/Abdominal Exam GI & Abdominal Exam: Normal Bowel Sounds, Soft. absent: Distended, Firm, Guarding, Rebound, Rigid, Tenderness - Extremities Exam Extremities exam: Negative for: calf tenderness - Neurological Exam Neurological exam: Patient is awake, alert, responds to verbal stimuli, answers questions appropriately, follows commands, and moves extremities past midline - Psychiatric Exam Psychiatric exam: Normal Affect, Normal Mood - Skin Skin Exam: Dry, Intact, Normal Color, Warm Assessment and Plan: Patient is a 46 year old male with a past medical history of paranoid schizophrenia, hypertension, and seizure who was admitted for evaluation and treatment of negative thoughts and excess alcohol intake. ETOH Intoxication/Withdrawal (Stable) - CIWA 1 this AM - Ativan 1 Q8H [facility] held - c/w ativan 1mg q2 prn symptoms of ETOH withdrawl - aspiration precautions - seizure precautions - multivitamin, folate, b12 COPD, Tobacco Abuse - xopenox 1.25mg TID - Solu-Medrol 40 Daily Paranoid Schizophrenia (Stable) - psych consulted- appreciate recommendations Trazadone 100 HS, Zoloft 50 Daily, Geodon 20 HS, 20 Q8 PRN, and 20 BID - Pending Transfer to Psych once medically stabilized. Elevated LFTs (Acute) - increasing likely secondary to ETOH abuse - will cont. monitor closely - RUQ ultrasound pending - GI consulted- Dr. Prasad- appreciate recommendations Nausea/Vomitting (Resolved) - likely secondary to ETOH - prn zofran, QTc- 457 [place]ina - trazadone 100mg QHS prn insomnia Hx of HTN - not taking antihypertensives at home - c/w lisinopril 5 mg PO daily Dispo: Patient to be transferred to [facility] once LFT's begin downtrending. Patient seen, case discussed with, and plan approved by attending physician, Dr. Reyes. Objective - Vital Signs/Intake and Output Vital Signs (last 24 hours): Temp Pulse Resp BP Pulse Ox 97.5 F L 71 20 122/83 96 08/17/17 09:13 08/17/17 10:02 08/17/17 09:13 08/17/17 10:02 08/17/17 09:13 Intake and Output: 08/17/17 08/17/17 06:59 18:59 Intake Total 780 Output Total 0 Balance 780 - Medications Medications: Current Medications Atenolol (Tenormin) 12.5 mg PO DAILY [facility] Last Admin: 08/17/17 10:02 Dose: 12.5 mg Azithromycin (Zithromax) 250 mg PO DAILY [facility] PRN Reason: Protocol Stop: 08/20/17 10:01 Last Admin: 08/17/17 10:03 Dose: 250 mg Folic Acid (Folic Acid) 1 mg PO DAILY [facility] Last Admin: 08/17/17 10:02 Dose: 1 mg Guaifenesin (Robitussin) 200 mg PO Q6H PRN PRN Reason: Cough and congestion Levalbuterol HCl (Xopenex) 1.25 mg IH TIDRESP [facility] Last Admin: 08/17/17 07:41 Dose: 1.25 mg Lisinopril (Zestril) 5 mg PO DAILY [facility] Last Admin: 08/17/17 10:01 Dose: 5 mg Lorazepam (Ativan) 1 mg IVP Q2 PRN; Protocol PRN Reason: Symptoms of alcohol withdrawl Lorazepam (Ativan) 1 mg PO Q8 [facility] PRN Reason: Protocol Last Admin: 08/17/17 05:27 Dose: 1 mg Methylprednisolone (Solu-Medrol) 40 mg IVP DAILY [facility] Last Admin: 08/17/17 10:01 Dose: 40 mg Multivitamins (Thera Tab) 1 tab PO 0800 [facility] Last Admin: 08/17/17 09:02 Dose: 1 tab Ondansetron HCl (Zofran Inj) 4 mg IVP Q6H PRN PRN Reason: Nausea/Vomiting Last Admin: 08/13/17 03:36 Dose: 4 mg Sertraline HCl (Zoloft) 50 mg PO DAILY [facility] Last Admin: 08/17/17 10:03 Dose: 50 mg Thiamine HCl (Vitamin B1 Tab) 100 mg PO DAILY [facility] Last Admin: 08/17/17 10:03 Dose: 100 mg Trazodone HCl (Desyrel) 100 mg PO HS [facility] Last Admin: 08/16/17 21:50 Dose: 100 mg Ziprasidone (Geodon Cap) 20 mg PO BID [facility] PRN Reason: Protocol Last Admin: 08/17/17 10:03 Dose: 20 mg Ziprasidone (Geodon Cap) 20 mg PO HS [facility] PRN Reason: Protocol Last Admin: 08/16/17 21:50 Dose: 20 mg Ziprasidone (Geodon Inj) 20 mg IM Q8H PRN; Protocol PRN Reason: severe agitation - Labs Labs: 08/17/17 05:30 08/17/17 05:30 Assessment and Plan (1) Alcohol withdrawal Status: Resolved (2) Paranoid schizophrenia Status: Chronic <Nando Reyes - Last Filed: 08/17/17 16:00> Objective - Vital Signs/Intake and Output Vital Signs (last 24 hours): Temp Pulse Resp BP Pulse Ox 97.5 F L 58 L 20 122/83 96 08/17/17 09:13 08/17/17 14:00 08/17/17 09:13 08/17/17 10:02 08/17/17 09:13 Intake and Output: 08/17/17 08/17/17 06:59 18:59 Intake Total 780 480 Output Total 0 Balance 780 480 - Medications Medications: Current Medications Atenolol (Tenormin) 12.5 mg PO DAILY [facility] Last Admin: 08/17/17 10:02 Dose: 12.5 mg Azithromycin (Zithromax) 250 mg PO DAILY [facility] PRN Reason: Protocol Stop: 08/20/17 10:01 Last Admin: 08/17/17 10:03 Dose: 250 mg Folic Acid (Folic Acid) 1 mg PO DAILY [facility] Last Admin: 08/17/17 10:02 Dose: 1 mg Guaifenesin (Robitussin) 200 mg PO Q6H PRN PRN Reason: Cough and congestion Levalbuterol HCl (Xopenex) 1.25 mg IH TIDRESP [facility] Last Admin: 08/17/17 07:41 Dose: 1.25 mg Lisinopril (Zestril) 5 mg PO DAILY [facility] Last Admin: 08/17/17 10:01 Dose: 5 mg Lorazepam (Ativan) 1 mg IVP Q2 PRN; Protocol PRN Reason: Symptoms of alcohol withdrawl Methylprednisolone (Solu-Medrol) 40 mg IVP DAILY [facility] Last Admin: 08/17/17 10:01 Dose: 40 mg Multivitamins (Thera Tab) 1 tab PO 0800 [facility] Last Admin: 08/17/17 09:02 Dose: 1 tab Ondansetron HCl (Zofran Inj) 4 mg IVP Q6H PRN PRN Reason: Nausea/Vomiting Last Admin: 08/13/17 03:36 Dose: 4 mg Sertraline HCl (Zoloft) 50 mg PO DAILY [facility] Last Admin: 08/17/17 10:03 Dose: 50 mg Thiamine HCl (Vitamin B1 Tab) 100 mg PO DAILY [facility] Last Admin: 08/17/17 10:03 Dose: 100 mg Trazodone HCl (Desyrel) 100 mg PO HS [facility] Last Admin: 08/16/17 21:50 Dose: 100 mg Ziprasidone (Geodon Cap) 20 mg PO BID [facility] PRN Reason: Protocol Last Admin: 08/17/17 10:03 Dose: 20 mg Ziprasidone (Geodon Cap) 20 mg PO HS [facility] PRN Reason: Protocol Last Admin: 08/16/17 21:50 Dose: 20 mg Ziprasidone (Geodon Inj) 20 mg IM Q8H PRN; Protocol PRN Reason: severe agitation - Labs Labs: 08/17/17 05:30 08/17/17 05:30 Attending/Attestation - Attestation I have personally seen and examined this patient.: Yes I have fully participated in the care of the patient.: Yes I have reviewed all pertinent clinical information, including history, physical exam and plan: Yes Notes (Text): 08/17/17 15:58 attending note; Patient seen and examined with resident. Patient is a 46-year-old male admitted with alcohol abuse. Currently not in withdrawal. Continue Ativan. Elevated LFTs; mostly due to alcohol abuse. Recent hepatitis profile was negative. Abdominal ultrasound negative. We'll follow up closely. schizoaffective disorder; psychiatric evaluation appreciated. Transferred to when bed available. upon discharge patient will follow-up with [facility]. 08/17/17 15:59 08/17/17 16:00
--- NOTE | 2017-08-17 15:08 | US ---
HISTORY: Elevated LFTS, right upper quadrant US needed COMPARISON: None. TECHNIQUE: Grayscale imaging was performed. FINDINGS: LIVER: Measures 18.0 cm. Normal echogenicity of the liver parenchyma. There is a 1.1 x 1.3 x 1.3 cm simple cyst in the right hepatic lobe. . No intrahepatic bile duct dilatation. GALLBLADDER: There are no gallstones, wall thickening or pericholecystic fluid. The sonographic Farah's sign is negative. . COMMON BILE DUCT: Measures 2.9 mm. No stones. No dilatation. PANCREAS: Unremarkable as visualized. No mass. No ductal dilatation. RIGHT KIDNEY: Measures 13.2cm. Normal echogenicity. No calculus, mass, or hydronephrosis. LEFT KIDNEY: Measures 12 pointcm. Normal echogenicity. No calculus, mass, or hydronephrosis. SPLEEN: Normal in size and contour. No mass. AORTA: No aneurysmal dilatation. IVC: Unremarkable. OTHER FINDINGS: None. IMPRESSION: Mild hepatomegaly. Diffuse increased echogenicity in the liver may reflect hepatic steatosis however parenchymal infectious/ inflammatory etiologies cannot be entirely excluded. Clinical and laboratory correlation is advised. No cholelithiasis or biliary dilatation.
[2017-08-17 16:19] LABS: HEPATITIS B SURFACE AG Negative (NEGATIVE)
[2017-08-17 16:24] LABS: HEPATITIS A IGM NEGATIVE (NEGATIVE); HEPATITIS B CORE AB NEGATIVE (NEGATIVE)
--- NOTE | 2017-08-17 16:31 | PN ---
DATE: FOLLOWUP NOTE SUBJECTIVE: In short, the patient is a 46-year-old male with a reported history of schizoaffective disorder versus bipolar disorder, history of alcohol use disorder. Patient has history of incarcerations in the past. Patient was admitted on the medical side for evaluation of alcohol withdrawal symptoms as well as paranoia. Patient was having alcohol withdrawal syndrome, was stabilized on the medical side. At the present moment, patient experiences paranoia. Patient was making statement that "people are messing with my head. I hate islam. Devil wants to take my soul" and patient wants to be admitted for further evaluation and stabilization of psychotic symptoms and medication management. OBJECTIVE: VITAL SIGNS: Seem to be stable. Temperature is 97.5, pulse 71, blood pressure 122/83, respirations 20, oxygen saturation is 96. MEDICATIONS: Reviewed. Patient is on atenolol, Zithromax, folic acid, Robitussin, , Zestril, Ativan 1 mg IV push 2 hours p.r.n. for alcohol withdrawal symptoms. Patient is stable on Ativan 1 mg p.o. every 8 hours scheduled for alcohol withdrawal. Patient is on tapering dose. Patient is on Solu-Medrol 40 mg IV push daily, multivitamin, Zofran, Zoloft 50 mg daily, thiamine 100 mg daily, trazodone 100 mg at the nighttime, Geodon 20 mg IM every 8 hours p.r.n., Geodon 20 mg twice a day, and 20 at the nighttime. LABORATORY DATA: Labs reviewed. Hemoglobin and hematocrit 13.9 and 40.1. Chemistry reviewed. AST and ALT are elevated. Patient was seen by Gastroenterology team. Toxicology positive for benzodiazepines as well as alcohol 188 at the time of admission. MENTAL STATUS EXAMINATION: Patient is guarded and paranoid, but overall pleasant. Patient had intense eye contact. Speech was pressured. Mood described as "I am getting better, but I am not okay." Affect was constricted. Thought processes are circumstantial and tangential. Patient appears to be guarded and paranoid. Patient was making statement "people are playing with my mind" and patient also had stated that he hates islam because he was mislead with one of the host because of the poor education. Insight and judgement seem to be improving. Impulses are better controlled. IMPRESSION: Schizoaffective disorder, alcohol use disorder, alcohol withdrawal delirium, which is improving. PLAN: Patient was willing to be transferred to psychiatric inpatient unit for further evaluation and stabilization. Patient wants medication to be adjusted. Patient obviously was not able to function very well. Patient is guarded and paranoid, which could affect patient's functionality. Plan is to adjust Geodon or to find other medications which potentially might be helpful for the patient. We will work on sobriety as well as naltrexone was offered to the patient. Zoloft will be increased because of the anxiety and depression. Patient was willing to sign into the psychiatric inpatient unit. Patient will be seen by social services specialist. We will offer rehab services. We will transfer the patient to the psych unit and advise accordingly. Patient needs to be followed up with gastroenterology team for elevation of AST and ALT. Thank you very much for letting me participate in the care of your patient. Deysi Patel MD
[2017-08-17 16:36] LABS: HEPATITIS C ANTIBODY NEGATIVE (NEGATIVE)
[2017-08-17 18:49] VITALS: RESP 18
[2017-08-18 06:29] LABS: BASO # 0.02 K/mm3 (0.0-2.0); BASO % 0.2 % (0.0-3.0); EOS # 0.3 (0.0-0.7); EOS % 2.9 % (1.5-5.0); GRAN # 7.37 (1.4-6.5); GRAN % 70.1 % (50.0-68.0); HEMOGLOBIN 13.8 g/dL (14.0-18.0); LYMPH # 1.7 (1.2-3.4); MEAN CELL VOLUME 97.8 fl (80.0-105.0); MEAN CORPUSCULAR HEMOGLOBIN 33.2 pg (25.0-35.0); MEAN CORPUSCULAR HGB CONC 33.9 g/dl (31.0-37.0); MEAN PLATELET VOLUME 11.6 fl (7.0-11.0); MONO # 1.1 (0.1-0.6); MONO % 10.8 % (1.0-6.0); RBC 4.16 10^6/uL (3.5-6.1); RED CELL DISTRIBUTION WIDTH 14.7 % (11.5-14.5); WHITE BLOOD COUNT 10.5 10^3/ul (4.5-11.0)
[2017-08-18 07:10] LABS: ALB/GLOB RATIO 1.4 (1.1-1.8); ALT/SGPT 521 U/L (7-56); AST/SGOT 399 U/L (17-59); BLOOD UREA NITROGEN 24 mg/dL (7-21); CALCIUM 9.4 mg/dL (8.4-10.5); GFR AFRICAN-AMERICAN > 60; GFR NON-AFRICAN AMERICAN > 60
[2017-08-18] MEDS: Levalbuterol 1.25 MG/3 ML Inhal Soln UD IH SCH (08:11)
[2017-08-18 08:17] VITALS: BP 134/97; PULSE 63; TEMP 98.2; O2SAT 97
--- NOTE | 2017-08-18 08:47 | CP.PCM.DIS ---
<Terry Muniz - Last Filed: 08/18/17 09:03> Provider - Provider Date of Admission: 08/12/17 13:34 Attending physician: Nando Reyes MD Time Spent in preparation of Discharge (in minutes): 45 Diagnosis - Discharge Diagnosis (1) Alcohol withdrawal Status: Resolved Priority: Medium (2) Paranoid schizophrenia Status: Chronic Priority: Medium Hospital Course - Lab Results Lab Results: Most Recent Lab Values WBC 10.5 10^3/ul (4.5-11.0) 08/18/17 05:30 RBC 4.16 10^6/uL (3.5-6.1) 08/18/17 05:30 Hgb 13.8 g/dL (14.0-18.0) L 08/18/17 05:30 Hct 40.7 % (42.0-52.0) L 08/18/17 05:30 MCV 97.8 fl (80.0-105.0) 08/18/17 05:30 MCH 33.2 pg (25.0-35.0) 08/18/17 05:30 MCHC 33.9 g/dl (31.0-37.0) 08/18/17 05:30 RDW 14.7 % (11.5-14.5) H 08/18/17 05:30 Plt Count 234 10^3/uL (120.0-450.0) 08/18/17 05:30 MPV 11.6 fl (7.0-11.0) H 08/18/17 05:30 Gran % 70.1 % (50.0-68.0) H 08/18/17 05:30 Lymph % (Auto) 16.0 % (22.0-35.0) L 08/18/17 05:30 [place] % (Auto) 10.8 % (1.0-6.0) H 08/18/17 05:30 Eos % (Auto) 2.9 % (1.5-5.0) 08/18/17 05:30 Baso % (Auto) 0.2 % (0.0-3.0) 08/18/17 05:30 Gran # 7.37 (1.4-6.5) H 08/18/17 05:30 Lymph # (Auto) 1.7 (1.2-3.4) 08/18/17 05:30 [place] # (Auto) 1.1 (0.1-0.6) H 08/18/17 05:30 Eos # (Auto) 0.3 (0.0-0.7) 08/18/17 05:30 Baso # (Auto) 0.02 K/mm3 (0.0-2.0) 08/18/17 05:30 Sodium 140 mmol/L (132-148) 08/18/17 05:30 Potassium 3.9 mmol/L (3.6-5.0) 08/18/17 05:30 Chloride 104 mmol/L (98-107) 08/18/17 05:30 Carbon Dioxide 25 mmol/L (21-33) 08/18/17 05:30 Anion Gap 15 (10-20) 08/18/17 05:30 BUN 24 mg/dL (7-21) H 08/18/17 05:30 Creatinine 0.9 mg/dl (0.8-1.5) 08/18/17 05:30 Est GFR ( Amer) > 60 08/18/17 05:30 Est GFR (Non-Af Amer) > 60 08/18/17 05:30 POC Glucose (mg/dL) 83 mg/dL (65-110) 08/18/17 07:21 Random Glucose 93 mg/dL (70-110) 08/18/17 05:30 Calcium 9.4 mg/dL (8.4-10.5) 08/18/17 05:30 Magnesium 1.8 mg/dL (1.7-2.2) 08/14/17 05:30 Total Bilirubin 1.1 mg/dL (0.2-1.3) 08/18/17 05:30 AST 399 U/L (17-59) H 08/18/17 05:30 ALT 521 U/L (7-56) H 08/18/17 05:30 Alkaline Phosphatase 81 U/L (38-126) 08/18/17 05:30 Total Protein 6.8 g/dL (5.8-8.3) 08/18/17 05:30 Albumin 4.0 g/dL (3.0-4.8) 08/18/17 05:30 Globulin 2.8 gm/dL 08/18/17 05:30 Albumin/Globulin Ratio 1.4 (1.1-1.8) 08/18/17 05:30 Urine Color Yellow (YELLOW) 08/12/17 10:00 Urine Appearance Sl cloudy (CLEAR) 08/12/17 10:00 Urine pH 6.0 (4.7-8.0) 08/12/17 10:00 Ur Specific [place] 1.025 (1.005-1.035) 08/12/17 10:00 Urine Protein 30 mg/dL (<30 mg/dL) H 08/12/17 10:00 Urine Glucose (UA) Negative mg/dL (NEGATIVE) 08/12/17 10:00 Urine Ketones 15 mg/dL (NEGATIVE) H 08/12/17 10:00 Urine Blood Negative (NEGATIVE) 08/12/17 10:00 Urine Nitrate Negative (NEGATIVE) 08/12/17 10:00 Urine Bilirubin Negative (NEGATIVE) 08/12/17 10:00 Urine Urobilinogen 1.0 E.U./dL (<1 E.U./dL) H 08/12/17 10:00 Ur Leukocyte Esterase Negative Sanjay/uL (NEGATIVE) 08/12/17 10:00 Urine RBC 0 - 2 /hpf (0-2) 08/12/17 10:00 Urine WBC 0 - 2 /hpf (0-6) 08/12/17 10:00 Ur Epithelial Cells None /hpf (0-5) 08/12/17 10:00 Amorphous Sediment Small 08/12/17 10:00 Urine Bacteria Many (NEG) 08/12/17 10:00 Urine Other Fiber 08/12/17 10:00 Salicylates < 1 mg/dL (2.0-20.0) L 08/12/17 08:45 Urine Opiates Screen Negative (NEGATIVE) 08/12/17 10:00 Urine Methadone Screen Negative (NEGATIVE) 08/12/17 10:00 Acetaminophen < 10.0 ug/ml (10.0-20.0) L 08/12/17 08:45 Ur Barbiturates Screen Negative (NEGATIVE) 08/12/17 10:00 Ur Phencyclidine Scrn Negative (NEGATIVE) 08/12/17 10:00 Ur Amphetamines Screen Negative (NEGATIVE) 08/12/17 10:00 U Benzodiazepines Scrn Positive (NEGATIVE) 08/12/17 10:00 U Oth Cocaine Metabols Negative (NEGATIVE) 08/12/17 10:00 U Cannabinoids Screen Negative (NEGATIVE) 08/12/17 10:00 Alcohol, Quantitative 188 mg/dL (0-10) H 08/12/17 08:45 IgG 858.7 mg/dL (700.0-1600.0) 08/17/17 12:48 Hepatitis A IgM Ab Negative (NEGATIVE) 08/17/17 12:48 Hepatitis A Ab Total Antibody neg (NEGATIVE) 08/17/17 12:48 Hep Bs Antigen Negative (NEGATIVE) 08/17/17 12:48 Hep Bs Antibody Negative (NEGATIVE) 08/17/17 12:48 Hep B Core IgM Ab Negative (NEGATIVE) 08/17/17 12:48 Hepatitis C Antibody Negative (NEGATIVE) 08/17/17 12:48 - Hospital Course Hospital Course: Patient is a 46 year old male with a past medical history of paranoid schizophrenia and hypertension who was admitted for evaluation and treatment of negative thoughts and excess alcohol intake. With the use of physical examinations, lab work, and imaging the patient was diagnosed with and treated for alcohol withdrawl, COPD, HTN, and an acute episode of paranoid schizophrenia secondary to medication noncompliance. During their hospital stay the patient was seen by psychiatry (Dr. Patel) and their recommendations were both appreciated and utilized in the care for this patient. During their hospital stay the patient underwent a chest xray which was reviewed, appreciated, and utilized in the management of the patients clinical course. The chest xray revealed no active disease. Patient was treated with ativan, azithromycin, IV steroids amongst other empiric/ therapeutic medications. At this time the patient is medically stable for discharge to the inpatient psych unit. Patient understands and appreciates discharge plan. Patient instructed to follow up with primary care physicians and referrals within three to five days from discharge. Furthermore, the patient is instructed to take medications as prescribed and to return to emergency room for evaluation of intractable headache, fever, chills, dizziness , chest pain, shortness of breath, abdominal pain, nausea, vomiting, diarrhea, constipation, and urinary symptoms. This is a brief summary of the patients hospital course. Please see patient chart for full details. Discharge Exam - Additional Findings Additional findings: Physical Examination: - Constitutional Appears: No Acute Distress - Head Exam Head Exam: ATRAUMATIC, NORMOCEPHALIC - Eye Exam Eye Exam: EOMI - ENT Exam ENT Exam: Mucous Membranes Moist - Neck Exam Neck exam: Negative for: Tenderness - Respiratory Exam Respiratory Exam: absent: Accessory Muscle Use, Respiratory Distress - Cardiovascular Exam Cardiovascular Exam: REGULAR RHYTHM, +S1, +S2 - GI/Abdominal Exam GI & Abdominal Exam: Normal Bowel Sounds, Soft. absent: Distended, Firm, Guarding, Rebound, Rigid, Tenderness - Extremities Exam Extremities exam: Negative for: calf tenderness - Neurological Exam Neurological exam: Patient is awake, alert, responds to verbal stimuli, answers questions appropriately, follows commands, and moves extremities past midline - Skin Skin Exam: Dry, Intact, Normal Color, Warm Discharge Plan - Discharge Medications Prescriptions: Methylprednisolone [Medrol Dose Pack (21 tabs)] See Taper PO DAILY #1 packet - Follow Up Plan Condition: FAIR Disposition: DISCHARGE TO [facility] Patient education suggested?: Yes Instructions: Alcohol Withdrawal Additional Instructions: Patient Instructions: Take medications as prescribed. Follow up with PMD and referrals within three to five days from discharge. Return to the emergency room for evaluation of intractable headache, fever, chills, dizziness, chest pain, shortness of breath, abdominal pain, nausea, vomiting, diarrhea, constipation, and urinary symptoms. <Nando Reyes - Last Filed: 08/18/17 16:54> Provider - Provider Date of Admission: 08/12/17 13:34 Attending physician: Nando Reyes MD Hospital Course - Lab Results Lab Results: Most Recent Lab Values WBC 10.5 10^3/ul (4.5-11.0) 08/18/17 05:30 RBC 4.16 10^6/uL (3.5-6.1) 08/18/17 05:30 Hgb 13.8 g/dL (14.0-18.0) L 08/18/17 05:30 Hct 40.7 % (42.0-52.0) L 08/18/17 05:30 MCV 97.8 fl (80.0-105.0) 08/18/17 05:30 MCH 33.2 pg (25.0-35.0) 08/18/17 05:30 MCHC 33.9 g/dl (31.0-37.0) 08/18/17 05:30 RDW 14.7 % (11.5-14.5) H 08/18/17 05:30 Plt Count 234 10^3/uL (120.0-450.0) 08/18/17 05:30 MPV 11.6 fl (7.0-11.0) H 08/18/17 05:30 Gran % 70.1 % (50.0-68.0) H 08/18/17 05:30 Lymph % (Auto) 16.0 % (22.0-35.0) L 08/18/17 05:30 [place] % (Auto) 10.8 % (1.0-6.0) H 08/18/17 05:30 Eos % (Auto) 2.9 % (1.5-5.0) 08/18/17 05:30 Baso % (Auto) 0.2 % (0.0-3.0) 08/18/17 05:30 Gran # 7.37 (1.4-6.5) H 08/18/17 05:30 Lymph # (Auto) 1.7 (1.2-3.4) 08/18/17 05:30 [place] # (Auto) 1.1 (0.1-0.6) H 08/18/17 05:30 Eos # (Auto) 0.3 (0.0-0.7) 08/18/17 05:30 Baso # (Auto) 0.02 K/mm3 (0.0-2.0) 08/18/17 05:30 Sodium 140 mmol/L (132-148) 08/18/17 05:30 Potassium 3.9 mmol/L (3.6-5.0) 08/18/17 05:30 Chloride 104 mmol/L (98-107) 08/18/17 05:30 Carbon Dioxide 25 mmol/L (21-33) 08/18/17 05:30 Anion Gap 15 (10-20) 08/18/17 05:30 BUN 24 mg/dL (7-21) H 08/18/17 05:30 Creatinine 0.9 mg/dl (0.8-1.5) 08/18/17 05:30 Est GFR ( Amer) > 60 08/18/17 05:30 Est GFR (Non-Af Amer) > 60 08/18/17 05:30 POC Glucose (mg/dL) 101 mg/dL (65-110) 08/18/17 11:13 Random Glucose 93 mg/dL (70-110) 08/18/17 05:30 Calcium 9.4 mg/dL (8.4-10.5) 08/18/17 05:30 Magnesium 1.8 mg/dL (1.7-2.2) 08/14/17 05:30 Total Bilirubin 1.1 mg/dL (0.2-1.3) 08/18/17 05:30 AST 399 U/L (17-59) H 08/18/17 05:30 ALT 521 U/L (7-56) H 08/18/17 05:30 Alkaline Phosphatase 81 U/L (38-126) 08/18/17 05:30 Total Protein 6.8 g/dL (5.8-8.3) 08/18/17 05:30 Albumin 4.0 g/dL (3.0-4.8) 08/18/17 05:30 Globulin 2.8 gm/dL 08/18/17 05:30 Albumin/Globulin Ratio 1.4 (1.1-1.8) 08/18/17 05:30 Urine Color Yellow (YELLOW) 08/12/17 10:00 Urine Appearance Sl cloudy (CLEAR) 08/12/17 10:00 Urine pH 6.0 (4.7-8.0) 08/12/17 10:00 Ur Specific [place] 1.025 (1.005-1.035) 08/12/17 10:00 Urine Protein 30 mg/dL (<30 mg/dL) H 08/12/17 10:00 Urine Glucose (UA) Negative mg/dL (NEGATIVE) 08/12/17 10:00 Urine Ketones 15 mg/dL (NEGATIVE) H 08/12/17 10:00 Urine Blood Negative (NEGATIVE) 08/12/17 10:00 Urine Nitrate Negative (NEGATIVE) 08/12/17 10:00 Urine Bilirubin Negative (NEGATIVE) 08/12/17 10:00 Urine Urobilinogen 1.0 E.U./dL (<1 E.U./dL) H 08/12/17 10:00 Ur Leukocyte Esterase Negative Sanjay/uL (NEGATIVE) 08/12/17 10:00 Urine RBC 0 - 2 /hpf (0-2) 08/12/17 10:00 Urine WBC 0 - 2 /hpf (0-6) 08/12/17 10:00 Ur Epithelial Cells None /hpf (0-5) 08/12/17 10:00 Amorphous Sediment Small 08/12/17 10:00 Urine Bacteria Many (NEG) 08/12/17 10:00 Urine Other Fiber 08/12/17 10:00 Salicylates < 1 mg/dL (2.0-20.0) L 08/12/17 08:45 Urine Opiates Screen Negative (NEGATIVE) 08/12/17 10:00 Urine Methadone Screen Negative (NEGATIVE) 08/12/17 10:00 Acetaminophen < 10.0 ug/ml (10.0-20.0) L 08/12/17 08:45 Ur Barbiturates Screen Negative (NEGATIVE) 08/12/17 10:00 Ur Phencyclidine Scrn Negative (NEGATIVE) 08/12/17 10:00 Ur Amphetamines Screen Negative (NEGATIVE) 08/12/17 10:00 U Benzodiazepines Scrn Positive (NEGATIVE) 08/12/17 10:00 U Oth Cocaine Metabols Negative (NEGATIVE) 08/12/17 10:00 U Cannabinoids Screen Negative (NEGATIVE) 08/12/17 10:00 Alcohol, Quantitative 188 mg/dL (0-10) H 08/12/17 08:45 IgG 858.7 mg/dL (700.0-1600.0) 08/17/17 12:48 Anti-Mitochondrial Ab Negative (Negative) 08/17/17 12:48 Anti-Smooth Muscle Ab Negative (Negative) 08/17/17 12:48 Hepatitis A IgM Ab Negative (NEGATIVE) 08/17/17 12:48 Hepatitis A Ab Total Antibody neg (NEGATIVE) 08/17/17 12:48 Hep Bs Antigen Negative (NEGATIVE) 08/17/17 12:48 Hep Bs Antibody Negative (NEGATIVE) 08/17/17 12:48 Hep B Core IgM Ab Negative (NEGATIVE) 08/17/17 12:48 Hepatitis C Antibody Negative (NEGATIVE) 08/17/17 12:48 Attending/Attestation - Attestation I have personally seen and examined this patient.: Yes I have fully participated in the care of the patient.: Yes I have reviewed all pertinent clinical information, including history, physical exam and plan: Yes Notes (Text): 08/18/17 16:53 attending note; Patient seen and examined with resident. Patient is a 46-year-old male admitted with alcohol abuse. Currently not in withdrawal. Continue Ativan. Elevated LFTs; mostly due to alcohol abuse. Recent hepatitis profile was negative. Abdominal ultrasound negative. GI evaluation appreciated. schizoaffective disorder; psychiatric evaluation appreciated. Transferred to today. Repeat LFT in 1 week. upon discharge patient will follow-up with [facility] clinic. 08/18/17 16:54
[2017-08-18] MEDS: MethylPREDNISolone 40 mg Vial IVP SCH (10:03)
[2017-08-18] MEDS: Multivitamin Therapeutic Tab PO SCH (10:04)
--- NOTE | 2017-08-18 12:26 | CP.PCM.PN ---
Subjective - Date & Time of Evaluation Date of Evaluation: 08/18/17 Time of Evaluation: 08:00 Objective - Vital Signs/Intake and Output Vital Signs (last 24 hours): Temp Pulse Resp BP Pulse Ox 98.2 F 63 18 134/97 H 97 08/18/17 08:17 08/18/17 10:03 08/18/17 08:17 08/18/17 10:03 08/18/17 08:17 Intake and Output: 08/18/17 08/18/17 06:59 18:59 Intake Total 1200 Balance 1200 - Medications Medications: Current Medications Atenolol (Tenormin) 12.5 mg PO DAILY [facility] Last Admin: 08/18/17 10:03 Dose: 12.5 mg Azithromycin (Zithromax) 250 mg PO DAILY [facility] PRN Reason: Protocol Stop: 08/20/17 10:01 Last Admin: 08/18/17 10:04 Dose: 250 mg Folic Acid (Folic Acid) 1 mg PO DAILY [facility] Last Admin: 08/18/17 10:03 Dose: 1 mg Guaifenesin (Robitussin) 200 mg PO Q6H PRN PRN Reason: Cough and congestion Levalbuterol HCl (Xopenex) 1.25 mg IH TIDRESP [facility] Last Admin: 08/18/17 08:11 Dose: 1.25 mg Lisinopril (Zestril) 5 mg PO DAILY [facility] Last Admin: 08/18/17 10:04 Dose: 5 mg Lorazepam (Ativan) 1 mg IVP Q2 PRN; Protocol PRN Reason: Symptoms of alcohol withdrawl Last Admin: 08/17/17 23:41 Dose: 1 mg Methylprednisolone (Solu-Medrol) 40 mg IVP DAILY [facility] Last Admin: 08/18/17 10:03 Dose: 40 mg Multivitamins (Thera Tab) 1 tab PO 0800 [facility] Last Admin: 08/18/17 10:04 Dose: 1 tab Ondansetron HCl (Zofran Inj) 4 mg IVP Q6H PRN PRN Reason: Nausea/Vomiting Last Admin: 08/13/17 03:36 Dose: 4 mg Sertraline HCl (Zoloft) 50 mg PO DAILY [facility] Last Admin: 08/18/17 10:05 Dose: 50 mg Thiamine HCl (Vitamin B1 Tab) 100 mg PO DAILY [facility] Last Admin: 08/17/17 10:03 Dose: 100 mg Trazodone HCl (Desyrel) 100 mg PO HS [facility] Last Admin: 08/17/17 22:15 Dose: 100 mg Ziprasidone (Geodon Cap) 20 mg PO BID [facility] PRN Reason: Protocol Last Admin: 08/18/17 10:03 Dose: 20 mg Ziprasidone (Geodon Cap) 20 mg PO HS [facility] PRN Reason: Protocol Last Admin: 08/17/17 22:14 Dose: 20 mg Ziprasidone (Geodon Inj) 20 mg IM Q8H PRN; Protocol PRN Reason: severe agitation - Labs Labs: 08/18/17 05:30 08/18/17 05:30
--- NOTE | 2017-08-18 12:36 | CP.PCM.CON ---
<Sidra Muniz - Last Filed: 08/18/17 12:37> History of Present Illness - History of Present Illness History of Present Illness: PGY4 Initial GI Consult Inocencio Stanley is a 46M w/ hx of ETOH abuse, paranoid schizophrenia who presents to the hospital intoxicated. Pt was initially admitted to hospital was alcoholic hepatitis and withdrawl. GI was consulted due to elevated LFTs. Pt initially had a 2:1 AST:ALT but eventually both enzymes started to increase. Pt was not started on any hepatotoxic drug while inpt. Pt denies any previous hospitalization for liver related issues. Denies any abd pain, nausea, and vomiting. Denies any weightloss. He admits to drinking 1 pint of bacardi daily for the past 2-3 years. He also admits to stopping his psych meds for the past few years. PMHx: paranoid schizophrenia, hypertension, and seizure PSHx: denies Allergies: denies Social Hx: drinks 1 pint of liquor per day for the past 1 year, smokes 1-2 cigars per day for 15 years, denies illicit drug use Family Hx: father- DM and alcoholis, mother- parkinsons disease Endo Hx: Denies Past Patient History - Infectious Disease Hx of Infectious Diseases: None - Tetanus Immunizations Tetanus Immunization: Unknown - Past Social History Smoking Status: Former Smoker - CARDIAC Hx Cardiac Disorders: Yes Hx Hypertension: Yes - PULMONARY Hx Respiratory Disorders: Yes (SMOKES 3 CIG A DAY X 15 YRS.) - NEUROLOGICAL Hx Neurological Disorder: No - HEENT Hx HEENT Problems: No - RENAL Hx Chronic Kidney Disease: No - ENDOCRINE/METABOLIC Hx Endocrine Disorders: No - HEMATOLOGICAL/ONCOLOGICAL Hx Blood Disorders: No - INTEGUMENTARY Hx Dermatological Problems: No - MUSCULOSKELETAL/RHEUMATOLOGICAL Hx Musculoskeletal Disorders: No Hx Falls: Yes - GASTROINTESTINAL Hx Gastrointestinal Disorders: No - GENITOURINARY/GYNECOLOGICAL Hx Genitourinary Disorders: No - PSYCHIATRIC Hx Psychophysiologic Disorder: Yes (ETOH ABUSE) Hx Depression: Yes Hx Schizophrenia: Yes Hx Substance Use: No - SURGICAL HISTORY Hx Surgeries: Yes (gastric sleeve) - ANESTHESIA Hx Anesthesia: Yes Hx Anesthesia Reactions: No Hx Malignant Hyperthermia: No Meds Home Medications: Home Medication List Medication Instructions Recorded Confirmed Type Atenolol [Tenormin] 12.5 mg PO DAILY tab 08/18/17 Rx Folic Acid 1 mg PO DAILY tab 08/18/17 Rx Levalbuterol [Xopenex] 1.25 mg IH TIDRESP neb 08/18/17 Rx Lisinopril [Zestril] 5 mg PO DAILY tab 08/18/17 Rx Methylprednisolone [Medrol Dose See Taper PO DAILY #1 packet 08/18/17 Rx Pack (21 tabs)] Multivitamin Therapeutic Tab 1 tab PO 0800 tab 08/18/17 Rx [Thera Tab] Sertraline [Zoloft] 50 mg PO DAILY tab 08/18/17 Rx Thiamine [Vitamin B1 Tab] 100 mg PO DAILY tab 08/18/17 Rx Ziprasidone [Geodon Cap] 20 mg PO BID cap 08/18/17 Rx Ziprasidone [Geodon Cap] 20 mg PO HS cap 08/18/17 Rx Ziprasidone [Geodon Inj] 20 mg IM Q8H PRN vial 08/18/17 Rx guaiFENesin [Robitussin] 200 mg PO Q6H PRN udc 08/18/17 Rx traZODone [Desyrel] 100 mg PO HS tab 08/18/17 Rx Allergies/Adverse Reactions: Allergies Allergy/AdvReac Type Severity Reaction Status Date / Time No Known Allergies Allergy Verified 08/12/17 08:37 - Medications Medications: Current Medications Atenolol (Tenormin) 12.5 mg PO DAILY [facility] Last Admin: 08/18/17 10:03 Dose: 12.5 mg Azithromycin (Zithromax) 250 mg PO DAILY [facility] PRN Reason: Protocol Stop: 08/20/17 10:01 Last Admin: 08/18/17 10:04 Dose: 250 mg Folic Acid (Folic Acid) 1 mg PO DAILY [facility] Last Admin: 08/18/17 10:03 Dose: 1 mg Guaifenesin (Robitussin) 200 mg PO Q6H PRN PRN Reason: Cough and congestion Levalbuterol HCl (Xopenex) 1.25 mg IH TIDRESP [facility] Last Admin: 08/18/17 08:11 Dose: 1.25 mg Lisinopril (Zestril) 5 mg PO DAILY [facility] Last Admin: 08/18/17 10:04 Dose: 5 mg Lorazepam (Ativan) 1 mg IVP Q2 PRN; Protocol PRN Reason: Symptoms of alcohol withdrawl Last Admin: 08/17/17 23:41 Dose: 1 mg Methylprednisolone (Solu-Medrol) 40 mg IVP DAILY [facility] Last Admin: 08/18/17 10:03 Dose: 40 mg Multivitamins (Thera Tab) 1 tab PO 0800 [facility] Last Admin: 08/18/17 10:04 Dose: 1 tab Ondansetron HCl (Zofran Inj) 4 mg IVP Q6H PRN PRN Reason: Nausea/Vomiting Last Admin: 08/13/17 03:36 Dose: 4 mg Sertraline HCl (Zoloft) 50 mg PO DAILY [facility] Last Admin: 08/18/17 10:05 Dose: 50 mg Thiamine HCl (Vitamin B1 Tab) 100 mg PO DAILY [facility] Last Admin: 08/17/17 10:03 Dose: 100 mg Trazodone HCl (Desyrel) 100 mg PO HS [facility] Last Admin: 08/17/17 22:15 Dose: 100 mg Ziprasidone (Geodon Cap) 20 mg PO BID [facility] PRN Reason: Protocol Last Admin: 08/18/17 10:03 Dose: 20 mg Ziprasidone (Geodon Cap) 20 mg PO HS [facility] PRN Reason: Protocol Last Admin: 08/17/17 22:14 Dose: 20 mg Ziprasidone (Geodon Inj) 20 mg IM Q8H PRN; Protocol PRN Reason: severe agitation Physical Exam - Constitutional Appears: Well, No Acute Distress - Head Exam Head Exam: ATRAUMATIC, NORMOCEPHALIC - Eye Exam Eye Exam: EOMI, Normal appearance - ENT Exam ENT Exam: Mucous Membranes Moist, Normal Exam - Neck Exam Neck exam: Positive for: Normal Inspection - Respiratory Exam Respiratory Exam: Clear to Auscultation Bilateral, NORMAL BREATHING PATTERN. absent: Rales, Rhonchi, Wheezes, Respiratory Distress - Cardiovascular Exam Cardiovascular Exam: REGULAR RHYTHM, +S1, +S2 - GI/Abdominal Exam GI & Abdominal Exam: Normal Bowel Sounds, Soft. absent: Firm, Guarding, Hernia , Organomegaly, Rebound, Rigid, Tenderness - Extremities Exam Extremities exam: Negative for: joint swelling, pedal edema - Neurological Exam Neurological exam: Alert, Oriented x3 - Psychiatric Exam Psychiatric exam: Normal Affect, Normal Mood - Skin Skin Exam: Dry, Intact, Normal Color, Warm Results - Vital Signs Recent Vital Signs: Last Vital Signs Temp 98.2 F 08/18/17 08:17 Pulse 63 08/18/17 10:03 Resp 18 08/18/17 08:17 BP 134/97 H 08/18/17 10:03 Pulse Ox 97 08/18/17 08:17 - Labs Result Diagrams: 08/18/17 05:30 08/18/17 05:30 Labs: Laboratory Results - last 24 hr 08/17/17 08/17/17 08/17/17 12:48 12:48 12:48 WBC RBC Hgb Hct MCV MCH MCHC RDW Plt Count MPV Gran % Lymph % (Auto) [place] % (Auto) Eos % (Auto) Baso % (Auto) Gran # Lymph # (Auto) [place] # (Auto) Eos # (Auto) Baso # (Auto) Sodium Potassium Chloride Carbon Dioxide Anion Gap BUN Creatinine Est GFR ( Amer) Est GFR (Non-Af Amer) POC Glucose (mg/dL) Random Glucose Calcium Total Bilirubin AST ALT Alkaline Phosphatase Total Protein Albumin Globulin Albumin/Globulin Ratio IgG 858.7 Hepatitis A IgM Ab Negative Hepatitis A Ab Total Antibody neg Hep Bs Antigen Negative Hep Bs Antibody Hep B Core IgM Ab Negative Hepatitis C Antibody Negative 08/17/17 08/17/17 08/17/17 12:48 15:54 21:20 WBC RBC Hgb Hct MCV MCH MCHC RDW Plt Count MPV Gran % Lymph % (Auto) [place] % (Auto) Eos % (Auto) Baso % (Auto) Gran # Lymph # (Auto) [place] # (Auto) Eos # (Auto) Baso # (Auto) Sodium Potassium Chloride Carbon Dioxide Anion Gap BUN Creatinine Est GFR ( Amer) Est GFR (Non-Af Amer) POC Glucose (mg/dL) 94 84 Random Glucose Calcium Total Bilirubin AST ALT Alkaline Phosphatase Total Protein Albumin Globulin Albumin/Globulin Ratio IgG Hepatitis A IgM Ab Hepatitis A Ab Total Hep Bs Antigen Hep Bs Antibody Negative Hep B Core IgM Ab Hepatitis C Antibody 08/18/17 08/18/17 08/18/17 05:30 05:30 07:21 WBC 10.5 RBC 4.16 Hgb 13.8 L Hct 40.7 L MCV 97.8 MCH 33.2 MCHC 33.9 RDW 14.7 H Plt Count 234 MPV 11.6 H Gran % 70.1 H Lymph % (Auto) 16.0 L [place] % (Auto) 10.8 H Eos % (Auto) 2.9 Baso % (Auto) 0.2 Gran # 7.37 H Lymph # (Auto) 1.7 [place] # (Auto) 1.1 H Eos # (Auto) 0.3 Baso # (Auto) 0.02 Sodium 140 Potassium 3.9 Chloride 104 Carbon Dioxide 25 Anion Gap 15 BUN 24 H Creatinine 0.9 Est GFR ( Amer) > 60 Est GFR (Non-Af Amer) > 60 POC Glucose (mg/dL) 83 Random Glucose 93 Calcium 9.4 Total Bilirubin 1.1 AST 399 H ALT 521 H Alkaline Phosphatase 81 Total Protein 6.8 Albumin 4.0 Globulin 2.8 Albumin/Globulin Ratio 1.4 IgG Hepatitis A IgM Ab Hepatitis A Ab Total Hep Bs Antigen Hep Bs Antibody Hep B Core IgM Ab Hepatitis C Antibody 08/18/17 11:13 WBC RBC Hgb Hct MCV MCH MCHC RDW Plt Count MPV Gran % Lymph % (Auto) [place] % (Auto) Eos % (Auto) Baso % (Auto) Gran # Lymph # (Auto) [place] # (Auto) Eos # (Auto) Baso # (Auto) Sodium Potassium Chloride Carbon Dioxide Anion Gap BUN Creatinine Est GFR ( Amer) Est GFR (Non-Af Amer) POC Glucose (mg/dL) 101 Random Glucose Calcium Total Bilirubin AST ALT Alkaline Phosphatase Total Protein Albumin Globulin Albumin/Globulin Ratio IgG Hepatitis A IgM Ab Hepatitis A Ab Total Hep Bs Antigen Hep Bs Antibody Hep B Core IgM Ab Hepatitis C Antibody Assessment & Plan - Assessment and Plan (Free Text) Assessment: This Pt is a 46M w/ hx of ETOH abuse, obesity, Schizophrenia who presents to the ER intoxicated. Consulted for elevated LFTS Alcoholic Hepatitis, etiology etoh, ruled out viral and biliary source; complete autoimmune work-up pending Elevated LFTs Schizophrenia Plan: -abstain from alcohol -avoid hepatotoxic drugs -U/S only revealed fatty infiltrates, no biliary obstruction -repreat LFTs in 1 week, if still elevated may need liver biopsy -no additional testing recommended at this time -no further GI intervention -will sign off D/W Dr. Culver <Nikolai Culver - Last Filed: 08/18/17 12:47> Meds - Medications Medications: Current Medications Atenolol (Tenormin) 12.5 mg PO DAILY [facility] Last Admin: 08/18/17 10:03 Dose: 12.5 mg Azithromycin (Zithromax) 250 mg PO DAILY [facility] PRN Reason: Protocol Stop: 08/20/17 10:01 Last Admin: 08/18/17 10:04 Dose: 250 mg Folic Acid (Folic Acid) 1 mg PO DAILY [facility] Last Admin: 08/18/17 10:03 Dose: 1 mg Guaifenesin (Robitussin) 200 mg PO Q6H PRN PRN Reason: Cough and congestion Levalbuterol HCl (Xopenex) 1.25 mg IH TIDRESP [facility] Last Admin: 08/18/17 08:11 Dose: 1.25 mg Lisinopril (Zestril) 5 mg PO DAILY [facility] Last Admin: 08/18/17 10:04 Dose: 5 mg Lorazepam (Ativan) 1 mg IVP Q2 PRN; Protocol PRN Reason: Symptoms of alcohol withdrawl Last Admin: 08/17/17 23:41 Dose: 1 mg Methylprednisolone (Solu-Medrol) 40 mg IVP DAILY [facility] Last Admin: 08/18/17 10:03 Dose: 40 mg Multivitamins (Thera Tab) 1 tab PO 0800 [facility] Last Admin: 08/18/17 10:04 Dose: 1 tab Ondansetron HCl (Zofran Inj) 4 mg IVP Q6H PRN PRN Reason: Nausea/Vomiting Last Admin: 08/13/17 03:36 Dose: 4 mg Sertraline HCl (Zoloft) 50 mg PO DAILY [facility] Last Admin: 08/18/17 10:05 Dose: 50 mg Thiamine HCl (Vitamin B1 Tab) 100 mg PO DAILY [facility] Last Admin: 08/17/17 10:03 Dose: 100 mg Trazodone HCl (Desyrel) 100 mg PO HS [facility] Last Admin: 08/17/17 22:15 Dose: 100 mg Ziprasidone (Geodon Cap) 20 mg PO BID [facility] PRN Reason: Protocol Last Admin: 08/18/17 10:03 Dose: 20 mg Ziprasidone (Geodon Cap) 20 mg PO HS [facility] PRN Reason: Protocol Last Admin: 08/17/17 22:14 Dose: 20 mg Ziprasidone (Geodon Inj) 20 mg IM Q8H PRN; Protocol PRN Reason: severe agitation Results - Vital Signs Recent Vital Signs: Last Vital Signs Temp 98.2 F 08/18/17 08:17 Pulse 63 08/18/17 10:03 Resp 18 08/18/17 08:17 BP 134/97 H 08/18/17 10:03 Pulse Ox 97 08/18/17 08:17 - Labs Result Diagrams: 08/18/17 05:30 08/18/17 05:30 Labs: Laboratory Results - last 24 hr 08/17/17 08/17/17 08/17/17 12:48 12:48 12:48 WBC RBC Hgb Hct MCV MCH MCHC RDW Plt Count MPV Gran % Lymph % (Auto) [place] % (Auto) Eos % (Auto) Baso % (Auto) Gran # Lymph # (Auto) [place] # (Auto) Eos # (Auto) Baso # (Auto) Sodium Potassium Chloride Carbon Dioxide Anion Gap BUN Creatinine Est GFR ( Amer) Est GFR (Non-Af Amer) POC Glucose (mg/dL) Random Glucose Calcium Total Bilirubin AST ALT Alkaline Phosphatase Total Protein Albumin Globulin Albumin/Globulin Ratio IgG 858.7 Hepatitis A IgM Ab Negative Hepatitis A Ab Total Antibody neg Hep Bs Antigen Negative Hep Bs Antibody Hep B Core IgM Ab Negative Hepatitis C Antibody Negative 08/17/17 08/17/17 08/17/17 12:48 15:54 21:20 WBC RBC Hgb Hct MCV MCH MCHC RDW Plt Count MPV Gran % Lymph % (Auto) [place] % (Auto) Eos % (Auto) Baso % (Auto) Gran # Lymph # (Auto) [place] # (Auto) Eos # (Auto) Baso # (Auto) Sodium Potassium Chloride Carbon Dioxide Anion Gap BUN Creatinine Est GFR ( Amer) Est GFR (Non-Af Amer) POC Glucose (mg/dL) 94 84 Random Glucose Calcium Total Bilirubin AST ALT Alkaline Phosphatase Total Protein Albumin Globulin Albumin/Globulin Ratio IgG Hepatitis A IgM Ab Hepatitis A Ab Total Hep Bs Antigen Hep Bs Antibody Negative Hep B Core IgM Ab Hepatitis C Antibody 08/18/17 08/18/17 08/18/17 05:30 05:30 07:21 WBC 10.5 RBC 4.16 Hgb 13.8 L Hct 40.7 L MCV 97.8 MCH 33.2 MCHC 33.9 RDW 14.7 H Plt Count 234 MPV 11.6 H Gran % 70.1 H Lymph % (Auto) 16.0 L [place] % (Auto) 10.8 H Eos % (Auto) 2.9 Baso % (Auto) 0.2 Gran # 7.37 H Lymph # (Auto) 1.7 [place] # (Auto) 1.1 H Eos # (Auto) 0.3 Baso # (Auto) 0.02 Sodium 140 Potassium 3.9 Chloride 104 Carbon Dioxide 25 Anion Gap 15 BUN 24 H Creatinine 0.9 Est GFR ( Amer) > 60 Est GFR (Non-Af Amer) > 60 POC Glucose (mg/dL) 83 Random Glucose 93 Calcium 9.4 Total Bilirubin 1.1 AST 399 H ALT 521 H Alkaline Phosphatase 81 Total Protein 6.8 Albumin 4.0 Globulin 2.8 Albumin/Globulin Ratio 1.4 IgG Hepatitis A IgM Ab Hepatitis A Ab Total Hep Bs Antigen Hep Bs Antibody Hep B Core IgM Ab Hepatitis C Antibody 08/18/17 11:13 WBC RBC Hgb Hct MCV MCH MCHC RDW Plt Count MPV Gran % Lymph % (Auto) [place] % (Auto) Eos % (Auto) Baso % (Auto) Gran # Lymph # (Auto) [place] # (Auto) Eos # (Auto) Baso # (Auto) Sodium Potassium Chloride Carbon Dioxide Anion Gap BUN Creatinine Est GFR ( Amer) Est GFR (Non-Af Amer) POC Glucose (mg/dL) 101 Random Glucose Calcium Total Bilirubin AST ALT Alkaline Phosphatase Total Protein Albumin Globulin Albumin/Globulin Ratio IgG Hepatitis A IgM Ab Hepatitis A Ab Total Hep Bs Antigen Hep Bs Antibody Hep B Core IgM Ab Hepatitis C Antibody Attending/Attestation - Attestation I have personally seen and examined this patient.: Yes I have fully participated in the care of the patient.: Yes I have reviewed all pertinent clinical information: Yes Notes (Text): 08/18/17 12:46 46 year old male with h/o etoh abuse admitted with intoxication found to have abnormal lfts, 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 Recommend etoh cessation. Eval for viral hepatitis negative. US unremarkable. Autoimmune serologies pending. Recommend outpatient follow up for repeat lfts in 4-6 weeks. Will sign off.
--- NOTE | 2017-08-18 21:03 | PN ---
DATE: 08/18/2017 SUBJECTIVE: The patient was followed up today. The patient has history of schizoaffective disorder versus schizophrenia, alcohol use disorder. The patient was offered psych admission, but the patient was held on the medical site because of the liver enzymes' elevation. The patient still presented to be disorganized and psychotic, hearing some devil voices, majority of the time this is during the night time when the patient has nightmares. The patient reported that whenever he started drinking, his depression as well as psychosis is worsening. The patient is willing to get treatment into the Psychiatric Inpatient Unit and possible medical adjustment. Meanwhile, the patient presented relatively well today but still presented to be disorganized, psychotic, and not well. VITAL SIGNS: Seem to be stable but blood pressure is elevated at 134/97, pulse is 63, temperature is 98.2, pulse is 63, respirations 18, oxygen saturation is 97. MEDICATIONS: Reviewed. The patient is on atenolol; Zithromax; folic acid; Robitussin; Zestril; Ativan; Solu-Medrol; Zofran; Zoloft 50 mg daily, we will plan to increase that medication further; thiamine 100 mg daily; Geodon 20 mg three times a day. All medications were confirmed with the pharmacy. Hematology reviewed from today. Hemoglobin and hematocrit are13.8 and 40.7. Chemistry reviewed. AST and ALT are elevated, going up. Discussed this case with Dr. Reyes. Dr. Reyes will follow up on this patient on the medical site. The patient was seen by pin pusher as well, consultation appreciated. 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 MENTAL STATUS EXAMINATION: The patient presented to be depressed and guarded, poor eye contact. Mood described not that well. Affect was constricted, mood congruent. Thought process circumstantial and tangential. Thought content, the patient presented to be disorganized. The patient was feeling that somebody playing tricks on him, also signing teacher was playing tricks on him while the patient was incarcerated in the past. The patient reported that his psychotic symptoms are improving. At the same time, the patient depressed but denied thoughts of harming himself or others. Insight and judgment seem to be limited but improving. Impulses are better controlled. IMPRESSION: As per history, schizoaffective disorder, rule out posttraumatic stress disorder, alcohol use disorder, and alcohol withdrawal delirium, which is better. PLAN: Continue current management. Continue current medication. The patient will be transferred to the Psychiatric Inpatient Unit. The patient signed consent for treatment. The patient might benefit from naltrexone, also supportive therapy. We will follow up and advise accordingly. We will follow up on the patient on the Psychiatric Inpatient Unit. Should you have any questions, give me a call back. Thank you very much for letting me participate in care of your patient. Deysi Patel MD MTDSerena
== END 2017-08-18 13:09 | DRG 897 ==
LOC: ED 08:07 → ERH 13:34 → 3RNO 15:20
PROVIDERS: ADMIT Hospitalist; ATTEND Internal Medicine
DX: F10.231 Alcohol dependence with withdrawal delirium (principal); F20.0 Paranoid schizophrenia; I10 Essential (primary) hypertension; J44.9 Chronic obstructive pulmonary disease, unspecified; R56.9 Unspecified convulsions; G47.00 Insomnia, unspecified; F17.290 Nicotine dependence, other tobacco product, uncomplicated; Y90.6 Blood alcohol level of 120-199 mg/100 ml; Z91.14 Patient's other noncompliance with medication regimen

== ENCOUNTER 2017-08-18 13:12 | Inpatient (IN) | payer OTHER, MEDICAID ==
--- NOTE | 2017-08-18 15:28 | PCM.BM ---
Treatment Plan Problems - Problems identified on initial assessmt Altered Thought Process Date Initiated: 08/18/17 Time Initiated: 15:26 Assessment reference: NA Status: Active Priority: 1 Comment: Pt is having delusional thoughts Medication Nonadherence Date Initiated: 08/18/17 Time Initiated: 15:28 Assessment reference: NA Status: Active Priority: 2 Comment: Pt has not been taking his prescribed medication as schedule Altered Sleep Patterns Date Initiated: 08/18/17 Time Initiated: 15:30 Assessment reference: NA Status: Active Priority: 3 Comment: Pt verbalized not sleeping well at nights Treatment assets and liabiliti Patient Assests: adapts well, cooperative, educated, insightful, motivated Patient Liabilities: substance abuse - Milieu Protocol Maintain good personal hygiene: daily Encourage regular showers, daily Remind patient to perform daily oral care, daily Assist patient to perform ADL's Maintain personal safety: every shift Educate patient to report safety concerns to staff, every shift Monitor environment for contraband/sharps Medication safety: Monitor for expected outcome, potential side effects: every shift, Assess barriers to learning: every shift, Assess readiness for medication education: every shift
[2017-08-18] MEDS ORDERED: Alum-Mag Hydrox-Simethicone Susp (30 mL) PO PRN (16:29)
[2017-08-18] MEDS ORDERED: Magnesium Hydroxide Susp 30 ml UD PO PRN (16:29)
[2017-08-19 07:34] LABS: BASO # 0.02 K/mm3 (0.0-2.0); BASO % 0.2 % (0.0-3.0); EOS # 0.2 (0.0-0.7); EOS % 2.6 % (1.5-5.0); GRAN # 6.76 (1.4-6.5); GRAN % 71.8 % (50.0-68.0); HEMOGLOBIN 13.3 g/dL (14.0-18.0); LYMPH # 1.5 (1.2-3.4); LYMPH % 15.5 % (22.0-35.0); MEAN CELL VOLUME 97.7 fl (80.0-105.0); MEAN CORPUSCULAR HEMOGLOBIN 33.4 pg (25.0-35.0); MEAN CORPUSCULAR HGB CONC 34.2 g/dl (31.0-37.0); MEAN PLATELET VOLUME 11.2 fl (7.0-11.0); MONO # 0.9 (0.1-0.6); MONO % 9.9 % (1.0-6.0); RBC 3.98 10^6/uL (3.5-6.1); RED CELL DISTRIBUTION WIDTH 14.5 % (11.5-14.5); WHITE BLOOD COUNT 9.4 10^3/ul (4.5-11.0)
[2017-08-19] MEDS: Multivitamin With Minerals Tab PO SCH (08:24)
[2017-08-19 09:11] LABS: ALB/GLOB RATIO 1.3 (1.1-1.8); ALBUMIN 3.8 g/dL (3.0-4.8); ALT/SGPT 548 U/L (7-56); AST/SGOT 384 U/L (17-59); BLOOD UREA NITROGEN 21 mg/dL (7-21); CALCIUM 8.6 mg/dL (8.4-10.5); GFR AFRICAN-AMERICAN > 60; GFR NON-AFRICAN AMERICAN > 60
--- NOTE | 2017-08-19 14:39 | PCM.PSYCH ---
Initial Psychiatric Evaluation - Initial Psychiatric Evaluation Type of Admission: Voluntary Legal Status: Capacity (patient has capacity to sign consent for treatment) Chief Complaint (in patient's own words): "I'm feeling fine now, but when I'm drinking I cannot control myself, I was feeling that the devil is taking myself, I was feeling that snake was living in my belly family does not believe in mental illness". Patient's Reaction to Hospitalization: patient was transferred from the medical side for evaluation and stabilization of psychotic symptoms, disorganized thoughts and behavior, depressive symptoms. History of Present Illness and Precipitating Events: shortly he shouldn't is 46 year old [place] male, reported history of "paranoid schizophrenia ", denied previous psychiatric admissions, history of alcohol use disorder, multiple detoxes in the past, history of incarceration for 7 years, patient has outpatient psychiatrist Dr. Thomas, patient came to the hospital for evaluation of chest pain while evaluated patient presented to be disorganized, psychotic, was feeling that devil is going to take his soul, patient required admission to the medical side for alcohol withdrawal symptoms, stabilized, was transferred to the psychiatric inpatient unit 08/20/17, transfer was uneventful. Even though that patient had outpatient provider, patient was compliant with the medications, but patient was not able to function, required further evaluation and stabilization and medication adjustment in psychiatric inpatient unit. patient was seen and examined today at the morning time at the treatment team meeting, patient presented with acceptable personal hygiene, at the same time seems to be careless about his appearance, has multiple tattoos on his upper extremities, over all well related to the treatment team. Good ADLs. This quality analyst/technical writer is very familiar with this patient from the multiple consultation services on the medical side, since the beginning of the year patient is required to have 5 hospitalization on the medical side for alcohol withdrawal symptoms complications for alcohol withdrawal delirium, patient has history of seeing things and feeling paranoid well on the medical side but all of other times patient did not want to sign himself into the psychiatric inpatient unit up until this admission. patient reported that he was drinking alcohol daily, she likes to drink water but calm because "I like the feeling", patient reported whenever she drinks she is not doing well, he becomes to be very depressed, reported to have nightmares, patient had impression that she could see devil and God and he lost touch with reality, patient was scared that he signed his soul to the devil, patient reported that "God asked me whose son am I , I was scared and said devil's, because my father's karma name was "freda", I was so scared that my soul was taken". pt said that he still remembers the feeling and he feels unease. pt reported that he is doing little better, "I am my worst enemy, but I am so weak". pt's thought process was circumstantial as well as tangential, patient reported that she was feeling snake was living in his belly, and he was feeling scared". Patient was jumping from some one subject to another, report that he was arrested because he was driving under the influence, patient also reported that he was holding the baseball bat, patient reported that his daughter was in his car back then and that is why he needed to serve 7years in halfway. patient reported that she had a lot of legal problems, he spent a lot of money for binder selector, patient reported that he wanted to leave the country and go back to [place] and never come back to [place], it happened about 10years ago, at times pt has flashbacks and nightmares about that time, pt said that he was able to put his life back together, he is with his for the past 27years. patient also presented to be paranoid, said that at times people playing tricks on him, patient reported that the clinical social work therapist played tricks on him and that's why he was incarcerated. patient was also preoccupied with the adventist, patient reported that decreased convince him that freda lives inside of pt's body. patient referred all priests as "crazy and really just freaks" as per previous history: Patient was raised by dysfunctional family, patient mother abandoned him when she was 13 years old, patient never knew his father, patient has history of being homeless, had not enough food the past, patient has 3 kids from different relationship. past psychiatric history: currently under care or psychiatrist Dr. Sven Byrne, Geodon 60 mg daily and trazodone, family history is unknown medical h/o: pt's BP was very elevated, medical consult called, Liver enzymes were elevated, GI consultation was done on the medical side, impression patient has alcoholic hepatitis. patient was drinking on daily basis about 1to 2 pints of vodka. social history: Patient is , has stable home, patient and his owns a house. no manic symptoms, denied panic attacks 08/19/17 07:15 08/19/17 07:15 Lab Results 08/19/17 07:15: TSH 3rd Generation 1.73 08/19/17 07:15: Sodium 139, Potassium 3.8, Chloride 107, Carbon Dioxide 22, Anion Gap 14, BUN 21, Creatinine 0.8, Est GFR ( Amer) > 60, Est GFR (Non- Af Amer) > 60, Random Glucose 93, Calcium 8.6, Total Bilirubin 1.1, AST 384 H, ALT 548 H, Alkaline Phosphatase 79, Total Protein 6.7, Albumin 3.8, Globulin 2.9 , Albumin/Globulin Ratio 1.3 08/19/17 07:15: WBC 9.4, RBC 3.98, Hgb 13.3 L, Hct 38.9 L, MCV 97.7, MCH 33.4, MCHC 34.2, RDW 14.5, Plt Count 225, MPV 11.2 H, Gran % 71.8 H, Lymph % (Auto) 15.5 L, Arthur % (Auto) 9.9 H, Eos % (Auto) 2.6, Baso % (Auto) 0.2, Gran # 6.76 H , Lymph # (Auto) 1.5, Arthur # (Auto) 0.9 H, Eos # (Auto) 0.2, Baso # (Auto) 0.02 Vital Signs Temp Pulse Resp BP 08/19/17 08:25 84 152/111 H 08/19/17 07:11 97.5 F L 84 20 152/111 H 08/18/17 16:00 64 127/88 08/18/17 15:43 20 pt denied using any other drugs, denied smoking Current Medications: Active Medications Generic Name Dose Route Start Last Admin Trade Name Freq PRN Reason Stop Dose Admin Acetaminophen 650 mg 08/18/17 16:29 Tylenol 325mg Tab PO Q4 PRN Pain, moderate (4-7) Al Hydrox/Mg Hydrox/Simethicone 30 ml 08/18/17 16:29 Maalox Plus 30 Ml PO DAILY PRN Upset Stomach Atenolol 12.5 mg 08/19/17 08:00 08/19/17 08:25 Tenormin PO 12.5 mg DAILY MICH Administration Folic Acid 1 mg 08/19/17 08:00 08/19/17 08:27 Folic Acid PO 1 mg DAILY MICH Administration Lisinopril 5 mg 08/19/17 08:00 08/19/17 08:25 Zestril PO 5 mg DAILY MICH Administration Magnesium Hydroxide 30 ml 08/18/17 16:29 Milk Of Magnesia PO DAILY PRN Constipation Multivitamins/Minerals 1 tab 08/19/17 08:00 08/19/17 08:24 Therapeutic-M Tab PO 1 tab 0800 MICH Administration Sertraline HCl 100 mg 08/19/17 12:00 Zoloft PO DAILY MICH Thiamine HCl 100 mg 08/19/17 08:00 08/19/17 08:24 Vitamin B1 Tab PO 100 mg DAILY MICH Administration Trazodone HCl 100 mg 08/18/17 22:00 08/18/17 21:10 Desyrel PO 100 mg HS MICH Administration Ziprasidone 20 mg 08/18/17 22:00 08/18/17 21:10 Geodon Cap PO 20 mg HS MICH Administration Protocol Ziprasidone 20 mg 08/18/17 16:45 08/19/17 08:26 Geodon Cap PO 20 mg BID MICH Administration Protocol Zolpidem Tartrate 5 mg 08/18/17 22:27 08/18/17 22:31 Ambien PO 5 mg HS PRN Administration Insomnia Protocol Past Psychiatric History - Past Psychiatric History Prior Professional Help: see HPI Prior Psychiatric Treatment: see HPI At what hospital: see HPI Duration: see HPI Nature of Treatment: see HPI Explanation of prior treatment: see HPI History of Abuse: see HPI History of ETOH/Drug Use: see HPI History of Family Illness: see HPI Pertinent Medical Hx (Current Medical&Sleep Prob, Allergies): Allergies Allergy/AdvReac Type Severity Reaction Status Date / Time No Known Allergies Allergy Verified 08/18/17 18:41 Atenolol [Tenormin] 12.5 mg PO DAILY tab 08/18/17 Folic Acid 1 mg PO DAILY tab 08/18/17 Levalbuterol [Xopenex] 1.25 mg IH TIDRESP neb 08/18/17 Lisinopril [Zestril] 5 mg PO DAILY tab 08/18/17 Methylprednisolone [Medrol Dose Pack (21 tabs)] See Taper PO DAILY #1 packet Multivitamin Therapeutic Tab [Thera Tab] 1 tab PO 0800 tab 08/18/17 Sertraline [Zoloft] 50 mg PO DAILY tab 08/18/17 Thiamine [Vitamin B1 Tab] 100 mg PO DAILY tab 08/18/17 Ziprasidone [Geodon Cap] 20 mg PO BID cap 08/18/17 Ziprasidone [Geodon Cap] 20 mg PO HS cap 08/18/17 Ziprasidone [Geodon Inj] 20 mg IM Q8H PRN vial 08/18/17 guaiFENesin [Robitussin] 200 mg PO Q6H PRN udc 08/18/17 traZODone [Desyrel] 100 mg PO HS tab 08/18/17 DSM 5 DX - DSM 5 DSM 5 Diagnosis: stable delusional disorder, rule out schizophrenia as per history Alcohol withdrawal delirium is improving Alcohol use disorder - Recommended/Plan of Treatment Treatment Recommendations and Plan of Treatment: milieu, structure, supportive therapy Atenolol [Tenormin] 12.5 mg PO DAILY as per medical team Folic Acid 1 mg PO DAILY will be continued Levalbuterol [Xopenex] 1.25 mg IH TIDRESP as per medical team Lisinopril [Zestril] 5 mg PO DAILY as per medical team Methylprednisolone [Medrol Dose Pack (21 tabs)] See Taper PO DAILY as per medical team Multivitamin Therapeutic Tab [Thera Tab] 1 tab PO 0800 tab as per medical team Sertraline [Zoloft] will be increased to 100 mg daily for depression and anxiety Thiamine [Vitamin B1 Tab] 100 mg PO DAILY will be continued Ziprasidone [Geodon Cap] 20 mg PO BID will be continued Ziprasidone [Geodon Cap] 20 mg PO HS will be continued Ziprasidone [Geodon Inj] 20 mg IM Q8H PRN vial 08/18/17 traZODone [Desyrel] 100 mg PO HS was discontinued Ambien 5 mg at the nighttime as needed for insomnia Medical consult appreciated consultation for discharge plan and social issues Family involvement Follow up on labs Will monitor closely Pt was educated about risk/benefits and alternatives of medications, coping strategies (safety plan, suicide prevention), relapse prevention, importance of follow up with psychiatrist and therapist, stay away from drugs/alcohol/smoking Projected ELOS: 7days Prognosis: fair Discharge Plan and Discharge Criteria: Pt will be not depressed or manic, will be more hopeful, will be not psychotic or anxious, will be not having thoughts of harming self or others, will be tolerating medications well, will not have major side effects, will be able to function, will not pose threat to self or others. - Smoking Cessation Smoking Cessation Initiated: No Reason for not providing: pt deneid
--- NOTE | 2017-08-19 17:08 | PCM.BM ---
Treatment Plan Problems - Problems identified on initial assessmt Problem 2 Date Initiated: 08/18/17 Time Initiated: 15:28 Altered Thought Process Date Initiated: 08/18/17 Time Initiated: 15:26 Assessment reference: NA Status: Active Priority: 1 Comment: Pt is having delusional thoughts Medication Nonadherence Date Initiated: 08/18/17 Time Initiated: 15:28 Assessment reference: NA Status: Active Priority: 2 Comment: Pt has not been taking his prescribed medication as schedule Altered Sleep Patterns Date Initiated: 08/18/17 Time Initiated: 15:30 Assessment reference: NA Status: Active Priority: 3 Comment: Pt verbalized not sleeping well at nights Treatment assets and liabiliti Patient Assests: adapts well, cooperative, educated, insightful, motivated, ADL independent, cognitively intact Patient Liabilities: substance abuse, medical problems - Milieu Protocol Maintain good personal hygiene: daily Encourage regular showers, daily Remind patient to perform daily oral care, daily Assist patient to perform ADL's Maintain personal safety: every shift Educate patient to report safety concerns to staff, every shift Monitor environment for contraband/sharps Medication safety: Monitor for expected outcome, potential side effects: every shift, Assess barriers to learning: every shift, Assess readiness for medication education: every shift Milieu Narrative: milieu, structure, supportive therapy Atenolol [Tenormin] 12.5 mg PO DAILY as per medical team Folic Acid 1 mg PO DAILY will be continued Levalbuterol [Xopenex] 1.25 mg IH TIDRESP as per medical team Lisinopril [Zestril] 5 mg PO DAILY as per medical team Methylprednisolone [Medrol Dose Pack (21 tabs)] See Taper PO DAILY as per medical team Multivitamin Therapeutic Tab [Thera Tab] 1 tab PO 0800 tab as per medical team Sertraline [Zoloft] will be increased to 100 mg daily for depression and anxiety Thiamine [Vitamin B1 Tab] 100 mg PO DAILY will be continued Ziprasidone [Geodon Cap] 20 mg PO BID will be continued Ziprasidone [Geodon Cap] 20 mg PO HS will be continued Ziprasidone [Geodon Inj] 20 mg IM Q8H PRN vial 08/18/17 traZODone [Desyrel] 100 mg PO HS was discontinued Ambien 5 mg at the nighttime as needed for insomnia Medical consult appreciated consultation for discharge plan and social issues Family involvement Follow up on labs Will monitor closely Pt was educated about risk/benefits and alternatives of medications, coping strategies (safety plan, suicide prevention), relapse prevention, importance of follow up with psychiatrist and therapist, stay away from drugs/alcohol/smoking Family Contact Family involvement: Family/SO is involved Family contact: Patient agrees to contact Family contact name: Aarti Rodriguez([phone]), Family contacted how many times per week?: 2 - Outside Agency Dr. Thomas Care involvment: Information-sharing Agency contact name: Dr. Thomas Discharge/Continuing Care - Education Needs Education Needs: Patient Medication, Patient Diagnosis/Disease Process, Patient Coping Skills, Patient Placement options, Patient Community resources, Patient Activities of Daily Living, Patient Nutrition, Patient Uses of Medical Equipment , Patient Health Practices/Safety, Patient Personal Hygiene/Grooming, Patient Aftercare Safety Plan - Discharge Discharge Criteria: Tolerates medication w/o severe side effects, Free of Suicidal thoughts, Free of paranoid thoughts, Free of agitation, Normal sleep pattern, Ability to care for self, No longer exhibiting s/s of withdrawal, Reduction of target symptoms Discharge to:: Home - Treatment Team Participation Patient/Family/SO Statement: milieu, structure, supportive therapy Atenolol [Tenormin] 12.5 mg PO DAILY as per medical team Folic Acid 1 mg PO DAILY will be continued Levalbuterol [Xopenex] 1.25 mg IH TIDRESP as per medical team Lisinopril [Zestril] 5 mg PO DAILY as per medical team Methylprednisolone [Medrol Dose Pack (21 tabs)] See Taper PO DAILY as per medical team Multivitamin Therapeutic Tab [Thera Tab] 1 tab PO 0800 tab as per medical team Sertraline [Zoloft] will be increased to 100 mg daily for depression and anxiety Thiamine [Vitamin B1 Tab] 100 mg PO DAILY will be continued Ziprasidone [Geodon Cap] 20 mg PO BID will be continued Ziprasidone [Geodon Cap] 20 mg PO HS will be continued Ziprasidone [Geodon Inj] 20 mg IM Q8H PRN vial 08/18/17 traZODone [Desyrel] 100 mg PO HS was discontinued Ambien 5 mg at the nighttime as needed for insomnia Medical consult appreciated consultation for discharge plan and social issues Family involvement Follow up on labs Will monitor closely Pt was educated about risk/benefits and alternatives of medications, coping strategies (safety plan, suicide prevention), relapse prevention, importance of follow up with psychiatrist and therapist, stay away from drugs/alcohol/smoking
--- NOTE | 2017-08-20 07:01 | CP.PCM.CON ---
Addendum entered and electronically signed by Terry Muniz DO 08/20/17 13:33: Medicine team will sign off at this time. Please reconsult if needed. Thank you for the opportunity to participate in the care of this patient. Original Note: <Terry Muniz - Last Filed: 08/20/17 13:31> History of Present Illness - History of Present Illness History of Present Illness: Subjective: CC: Medicine Consult HPI: Patient is a 46 year old male with a past medical history of paranoid schizophrenia, hypertension, and seizure who was recently admitted for evaluation and treatment of negative thoughts and excess alcohol intake. Patient was medically stabilized and transferred to the psychiatry unit. Medicine team was consulted to manage patients chronic conditions. Offers no new complaints at this time. Denies fever, chills, chest pain, abdominal pain, N /V, diarrhea, constipation, and urinary symptoms. PMHx: paranoid schizophrenia, hypertension, and seizure PSHx: denies Allergies: denies Social Hx: drinks 1 pint of liquor per day for the past 1 year, smokes 1-2 cigars per day for 15 years, denies illicit drug use Family Hx: father- DM and alcoholis, mother- parkinsons disease Pharmacy: [facility] in [place] PMD: Dr. Shepherd Outpatient Psychiatrist: Dr. Issac Taylor Physical Examination: - Constitutional Appears: No Acute Distress - Head Exam Head Exam: ATRAUMATIC, NORMOCEPHALIC - Eye Exam Eye Exam: EOMI - ENT Exam ENT Exam: Mucous Membranes Moist - Respiratory Exam Respiratory Exam: expiratory wheezing lower lobes bilaterally, Clear to Auscultation Bilateral, NORMAL BREATHING PATTERN. absent: Accessory Muscle Use , Respiratory Distress - Cardiovascular Exam Cardiovascular Exam: REGULAR RHYTHM, +S1, +S2 - GI/Abdominal Exam GI & Abdominal Exam: Normal Bowel Sounds, Soft. absent: Distended, Firm, Guarding, Rebound, Rigid, Tenderness - Extremities Exam Extremities exam: Negative for: calf tenderness - Neurological Exam Neurological exam: Patient is awake, alert, responds to verbal stimuli, answers questions appropriately, follows commands, and moves extremities past midline - Psychiatric Exam Psychiatric exam: Normal Affect, Normal Mood - Skin Skin Exam: Dry, Intact, Normal Color, Warm Assessment and Plan: Patient is a 46 year old male with a past medical history of paranoid schizophrenia, hypertension, and seizure who was admitted to the psych unit. The medicine team was consulted for management of the patients chronic conditions. Hx of HTN - blood pressures reviewed, trended, and appreciated- 130s/90s - c/w atenolol 12.5 mg PO daily - c/w lisinopril 5 mg PO daily COPD, Tobacco Abuse - duonebs prn SOB Elevated LFTs - likely secondary to ETOH abuse - cmp ordered and pending. Paranoid Schizophrenia (Stable) - as per psychiatry - continue with trazadone 100 HS, sertraline 100 Daily, Geodon 20mg BID and 20mg HS Insomina - per psych trazadone 100mg QHS prn insomnia Patient case discussed with and plan approved by attending physician. Past Patient History - Infectious Disease Hx of Infectious Diseases: None - Tetanus Immunizations Tetanus Immunization: Unknown - Past Social History Smoking Status: Former Smoker - CARDIAC Hx Cardiac Disorders: Yes Hx Hypertension: Yes - PULMONARY Hx Respiratory Disorders: Yes (SMOKES 3 CIG A DAY X 15 YRS.) - NEUROLOGICAL Hx Neurological Disorder: No - HEENT Hx HEENT Problems: No - RENAL Hx Chronic Kidney Disease: No - ENDOCRINE/METABOLIC Hx Endocrine Disorders: No - HEMATOLOGICAL/ONCOLOGICAL Hx Blood Disorders: No - INTEGUMENTARY Hx Dermatological Problems: No - MUSCULOSKELETAL/RHEUMATOLOGICAL Hx Musculoskeletal Disorders: No Hx Falls: Yes - GASTROINTESTINAL Hx Gastrointestinal Disorders: No - GENITOURINARY/GYNECOLOGICAL Hx Genitourinary Disorders: No - PSYCHIATRIC Hx Bipolar Disorder: Yes Hx Substance Use: Yes (Alcohol abuse) - SURGICAL HISTORY Hx Surgeries: Yes (gastric sleeve) - ANESTHESIA Hx Anesthesia: Yes Hx Anesthesia Reactions: No Hx Malignant Hyperthermia: No Meds Allergies/Adverse Reactions: Allergies Allergy/AdvReac Type Severity Reaction Status Date / Time No Known Allergies Allergy Verified 08/18/17 18:41 - Medications Medications: Current Medications Acetaminophen (Tylenol 325mg Tab) 650 mg PO Q4 PRN PRN Reason: Pain, moderate (4-7) Al Hydrox/Mg Hydrox/Simethicone (Maalox Plus 30 Ml) 30 ml PO DAILY PRN PRN Reason: Upset Stomach Atenolol (Tenormin) 12.5 mg PO DAILY [facility] Last Admin: 08/19/17 08:25 Dose: 12.5 mg Folic Acid (Folic Acid) 1 mg PO DAILY [facility] Last Admin: 08/19/17 08:27 Dose: 1 mg Lisinopril (Zestril) 5 mg PO DAILY [facility] Last Admin: 08/19/17 08:25 Dose: 5 mg Magnesium Hydroxide (Milk Of Magnesia) 30 ml PO DAILY PRN PRN Reason: Constipation Multivitamins/Minerals (Therapeutic-M Tab) 1 tab PO 0800 [facility] Last Admin: 08/19/17 08:24 Dose: 1 tab Sertraline HCl (Zoloft) 100 mg PO DAILY [facility] Thiamine HCl (Vitamin B1 Tab) 100 mg PO DAILY [facility] Last Admin: 08/19/17 08:24 Dose: 100 mg Trazodone HCl (Desyrel) 100 mg PO HS [facility] Last Admin: 08/19/17 22:13 Dose: 100 mg Ziprasidone (Geodon Cap) 20 mg PO HS [facility] PRN Reason: Protocol Last Admin: 08/19/17 22:13 Dose: 20 mg Ziprasidone (Geodon Cap) 20 mg PO BID [facility] PRN Reason: Protocol Last Admin: 08/19/17 17:49 Dose: 20 mg Zolpidem Tartrate (Ambien) 5 mg PO HS PRN; Protocol PRN Reason: Insomnia Last Admin: 08/19/17 22:13 Dose: 5 mg Results - Vital Signs Recent Vital Signs: Last Vital Signs Temp 97.5 F L 08/19/17 07:11 Pulse 60 08/19/17 16:00 Resp 20 08/19/17 07:11 BP 109/71 08/19/17 16:00 Pulse Ox - Labs Result Diagrams: 08/20/17 11:35 08/20/17 11:35 Labs: Laboratory Results - last 24 hr 08/19/17 08/19/17 08/19/17 07:15 07:15 07:15 WBC 9.4 RBC 3.98 Hgb 13.3 L Hct 38.9 L MCV 97.7 MCH 33.4 MCHC 34.2 RDW 14.5 Plt Count 225 MPV 11.2 H Gran % 71.8 H Lymph % (Auto) 15.5 L [place] % (Auto) 9.9 H Eos % (Auto) 2.6 Baso % (Auto) 0.2 Gran # 6.76 H Lymph # (Auto) 1.5 [place] # (Auto) 0.9 H Eos # (Auto) 0.2 Baso # (Auto) 0.02 Sodium 139 Potassium 3.8 Chloride 107 Carbon Dioxide 22 Anion Gap 14 BUN 21 Creatinine 0.8 Est GFR ( Amer) > 60 Est GFR (Non-Af Amer) > 60 Random Glucose 93 Calcium 8.6 Total Bilirubin 1.1 AST 384 H ALT 548 H Alkaline Phosphatase 79 Total Protein 6.7 Albumin 3.8 Globulin 2.9 Albumin/Globulin Ratio 1.3 TSH 3rd Generation 1.73 RPR 08/19/17 07:15 WBC RBC Hgb Hct MCV MCH MCHC RDW Plt Count MPV Gran % Lymph % (Auto) [place] % (Auto) Eos % (Auto) Baso % (Auto) Gran # Lymph # (Auto) [place] # (Auto) Eos # (Auto) Baso # (Auto) Sodium Potassium Chloride Carbon Dioxide Anion Gap BUN Creatinine Est GFR ( Amer) Est GFR (Non-Af Amer) Random Glucose Calcium Total Bilirubin AST ALT Alkaline Phosphatase Total Protein Albumin Globulin Albumin/Globulin Ratio TSH 3rd Generation RPR Nonreactive <Nando Reyes - Last Filed: 08/20/17 14:14> Meds - Medications Medications: Current Medications Acetaminophen (Tylenol 325mg Tab) 650 mg PO Q4 PRN PRN Reason: Pain, moderate (4-7) Al Hydrox/Mg Hydrox/Simethicone (Maalox Plus 30 Ml) 30 ml PO DAILY PRN PRN Reason: Upset Stomach Albuterol/Ipratropium (Duoneb 3 Mg/0.5 Mg (3 Ml) Ud) 3 ml IH [id number] [facility] Last Admin: 08/20/17 12:05 Dose: 3 ml Atenolol (Tenormin) 12.5 mg PO DAILY [facility] Last Admin: 08/20/17 08:54 Dose: 12.5 mg Folic Acid (Folic Acid) 1 mg PO DAILY [facility] Last Admin: 08/20/17 08:54 Dose: 1 mg Lisinopril (Zestril) 5 mg PO DAILY [facility] Last Admin: 08/20/17 08:52 Dose: 5 mg Magnesium Hydroxide (Milk Of Magnesia) 30 ml PO DAILY PRN PRN Reason: Constipation Multivitamins/Minerals (Therapeutic-M Tab) 1 tab PO 0800 [facility] Last Admin: 08/20/17 08:54 Dose: 1 tab Sertraline HCl (Zoloft) 100 mg PO DAILY [facility] Last Admin: 08/20/17 08:52 Dose: 100 mg Thiamine HCl (Vitamin B1 Tab) 100 mg PO DAILY [facility] Last Admin: 08/20/17 08:52 Dose: 100 mg Trazodone HCl (Desyrel) 100 mg PO HS [facility] Last Admin: 08/19/17 22:13 Dose: 100 mg Ziprasidone (Geodon Cap) 20 mg PO HS [facility] PRN Reason: Protocol Last Admin: 08/19/17 22:13 Dose: 20 mg Ziprasidone (Geodon Cap) 20 mg PO BID [facility] PRN Reason: Protocol Last Admin: 08/20/17 08:52 Dose: 20 mg Zolpidem Tartrate (Ambien) 5 mg PO HS PRN; Protocol PRN Reason: Insomnia Last Admin: 08/19/17 22:13 Dose: 5 mg Results - Vital Signs Recent Vital Signs: Last Vital Signs Temp 97.8 F 08/20/17 07:37 Pulse 69 08/20/17 08:54 Resp 20 08/20/17 07:37 BP 136/94 H 08/20/17 08:54 Pulse Ox - Labs Result Diagrams: 08/20/17 11:35 08/20/17 11:35 Labs: Laboratory Results - last 24 hr 08/19/17 08/20/17 08/20/17 07:15 11:35 11:35 WBC 9.6 RBC 4.17 Hgb 14.1 Hct 41.0 L MCV 98.3 MCH 33.8 MCHC 34.4 RDW 14.1 Plt Count 245 MPV 11.0 Gran % 66.3 Lymph % (Auto) 16.2 L [place] % (Auto) 13.4 H Eos % (Auto) 3.8 Baso % (Auto) 0.3 Gran # 6.35 Lymph # (Auto) 1.6 [place] # (Auto) 1.3 H Eos # (Auto) 0.4 Baso # (Auto) 0.03 Sodium 139 Potassium 4.2 Chloride 105 Carbon Dioxide 24 Anion Gap 15 BUN 20 Creatinine 0.8 Est GFR ( Amer) > 60 Est GFR (Non-Af Amer) > 60 Random Glucose 89 Calcium 9.2 Total Bilirubin 1.1 AST 456 H ALT 679 H Alkaline Phosphatase 80 Total Protein 7.0 Albumin 4.2 Globulin 2.9 Albumin/Globulin Ratio 1.5 RPR Nonreactive Attending/Attestation - Attestation I have personally seen and examined this patient.: Yes I have fully participated in the care of the patient.: Yes I have reviewed all pertinent clinical information: Yes Notes (Text): 08/20/17 14:07 Attending note; Patient seen and examined with resident. Patient is a 46 year old male with a past medical history of paranoid schizophrenia, hypertension, and seizure who was recently admitted for evaluation and treatment of negative thoughts and excess alcohol intake. Patient was treated for alcohol withdrawal and transferred to psychiatric floor yesterday. Patient is currently alert and awake. Hypertension; continue metoprolol and lisinopril. Elevated LFTs; mostly secondary to alcohol abuse. Repeat LFTs in 1 week. Needs close follow-up with GI as outpatient upon discharge. Discontinue Tylenol. Avoid hepatotoxic drugs. Complete alcohol cessation is strongly advised. Patient is clinically stable. Please reconsult as needed. Patient needs to follow up with [facility] clinic and GI clinic upon discharge. 08/20/17 14:13
[2017-08-20] MEDS: Multivitamin With Minerals Tab PO SCH (08:54)
[2017-08-20 11:52] LABS: BASO # 0.03 K/mm3 (0.0-2.0); BASO % 0.3 % (0.0-3.0); EOS # 0.4 (0.0-0.7); EOS % 3.8 % (1.5-5.0); GRAN # 6.35 (1.4-6.5); GRAN % 66.3 % (50.0-68.0); HEMOGLOBIN 14.1 g/dL (14.0-18.0); LYMPH # 1.6 (1.2-3.4); LYMPH % 16.2 % (22.0-35.0); MEAN CELL VOLUME 98.3 fl (80.0-105.0); MEAN CORPUSCULAR HEMOGLOBIN 33.8 pg (25.0-35.0); MEAN CORPUSCULAR HGB CONC 34.4 g/dl (31.0-37.0); MONO # 1.3 (0.1-0.6); MONO % 13.4 % (1.0-6.0); RBC 4.17 10^6/uL (3.5-6.1); RED CELL DISTRIBUTION WIDTH 14.1 % (11.5-14.5); WHITE BLOOD COUNT 9.6 10^3/ul (4.5-11.0)
[2017-08-20 12:05] LABS: ALB/GLOB RATIO 1.5 (1.1-1.8); ALBUMIN 4.2 g/dL (3.0-4.8); ALT/SGPT 679 U/L (7-56); AST/SGOT 456 U/L (17-59); BLOOD UREA NITROGEN 20 mg/dL (7-21); CALCIUM 9.2 mg/dL (8.4-10.5); GFR AFRICAN-AMERICAN > 60; GFR NON-AFRICAN AMERICAN > 60
[2017-08-20] MEDS: Albuterol-Ipratrop 3 mg / 0.5 (3 ml) UD IH SCH ×4 (12:05→23:54)
--- NOTE | 2017-08-20 13:33 | PCM.PYCHPN ---
Psychiatric Progress Note - Psychiatric Progress Note Patient seen today, length of contact: 30 minutes Patient Chief Complaint: "I'm feeling fine now" Problems Identified/Issues Discussed: Suicide/ homicide prevention, past psychiatric h/o, current psychiatric symptoms , medical problems, risk/benefits and alternatives of medications, medications compliance, coping strategies, substance abuse h/o, relapse prevention, importance of follow up with psychiatrist and therapist, discharge plan. Medical Problems: alcohol withdrawal also better, hypertension Diagnostic Results: 08/20/17 11:35 08/20/17 11:35 Lab Results 08/20/17 11:35: Sodium 139, Potassium 4.2, Chloride 105, Carbon Dioxide 24, Anion Gap 15, BUN 20, Creatinine 0.8, Est GFR ( Amer) > 60, Est GFR (Non- Af Amer) > 60, Random Glucose 89, Calcium 9.2, Total Bilirubin 1.1, AST 456 H, ALT 679 H, Alkaline Phosphatase 80, Total Protein 7.0, Albumin 4.2, Globulin 2.9 , Albumin/Globulin Ratio 1.5 08/20/17 11:35: WBC 9.6, RBC 4.17, Hgb 14.1, Hct 41.0 L, MCV 98.3, MCH 33.8, MCHC 34.4, RDW 14.1, Plt Count 245, MPV 11.0, Gran % 66.3, Lymph % (Auto) 16.2 L , [place] % (Auto) 13.4 H, Eos % (Auto) 3.8, Baso % (Auto) 0.3, Gran # 6.35, Lymph # (Auto) 1.6, [place] # (Auto) 1.3 H, Eos # (Auto) 0.4, Baso # (Auto) 0.03 08/19/17 07:15: RPR Nonreactive 08/19/17 07:15: TSH 3rd Generation 1.73 08/19/17 07:15: Sodium 139, Potassium 3.8, Chloride 107, Carbon Dioxide 22, Anion Gap 14, BUN 21, Creatinine 0.8, Est GFR ( Amer) > 60, Est GFR (Non- Af Amer) > 60, Random Glucose 93, Calcium 8.6, Total Bilirubin 1.1, AST 384 H, ALT 548 H, Alkaline Phosphatase 79, Total Protein 6.7, Albumin 3.8, Globulin 2.9 , Albumin/Globulin Ratio 1.3 08/19/17 07:15: WBC 9.4, RBC 3.98, Hgb 13.3 L, Hct 38.9 L, MCV 97.7, MCH 33.4, MCHC 34.2, RDW 14.5, Plt Count 225, MPV 11.2 H, Gran % 71.8 H, Lymph % (Auto) 15.5 L, [place] % (Auto) 9.9 H, Eos % (Auto) 2.6, Baso % (Auto) 0.2, Gran # 6.76 H , Lymph # (Auto) 1.5, [place] # (Auto) 0.9 H, Eos # (Auto) 0.2, Baso # (Auto) 0.02 Vital Signs Temp Pulse Resp BP 08/20/17 08:54 69 136/94 H 08/20/17 08:52 69 136/94 H 08/20/17 07:37 97.8 F 69 20 136/94 H 08/19/17 16:00 60 109/71 08/19/17 08:25 84 152/111 H 08/19/17 07:11 97.5 F L 84 20 152/111 H 08/18/17 16:00 64 127/88 08/18/17 15:43 20 DSM 5 Symptoms Update: shortly he shouldn't is 46 year old [place] male, reported history of "paranoid schizophrenia ", denied previous psychiatric admissions, history of alcohol use disorder, multiple detoxes in the past, history of incarceration for 7 years, patient has outpatient psychiatrist Dr. Thomas, patient came to the hospital for evaluation of chest pain while evaluated patient presented to be disorganized, psychotic, was feeling that devil is going to take his soul, patient required admission to the medical side for alcohol withdrawal symptoms, stabilized, was transferred to the psychiatric inpatient unit 08/20/17, transfer was uneventful. Even though that patient had outpatient provider, patient was compliant with the medications, but patient was not able to function, required further evaluation and stabilization and medication adjustment in psychiatric inpatient unit. patient was seen today at the treatment team meeting room, patient presented to have acceptable personal hygiene, patient reported that his withdrawal symptoms are much better. Patient still presented with mild disorganized thoughts and paranoia, but with some improvements. As per staff patient was trying to attend groups, tomorrow his is coming for treatment team meeting. So far patient tolerates medications well, no side effects observed or reported , aims 0, no EPS. Impression: Patient has history of schizophrenia, alcohol use disorder Rule out delusional disorder Medication Change: Yes (benzos discontinued) Medical Record Reviewed: Yes Consults ordered or reviewed: medical consult appreciated Mental Status Examination - Cognitive Function Orientation: Person, Place, Situation Memory: Intact Attention: Poor (with some improvement) Concentration: Poor (but with some improvement) Association: Loose (improving) Fund of Knowledge: WNL - Mood Mood: Depressed, Anxious - Affect Affect: Constricted (but reactive) - Speech Speech: Appropriate - Formal Thought Process Formal Thought Process: Delusions - Suicidal Ideation Suicidal Ideation: No - Homicidal Ideation Homicidal Ideation: No Goal/Treatment Plan - Goal/Treatment Plan Need for Continued Stay: Remain at risks for inpatient hospitalization, Severe depression anxiety, Discharge may exacerbated symptoms, Severe functional impairment Progress Toward Problem(s) and Goals/Treatment Plan: milieu, structure, supportive therapy Atenolol [Tenormin] 12.5 mg PO DAILY as per medical team Folic Acid 1 mg PO DAILY will be continued Levalbuterol [Xopenex] 1.25 mg IH TIDRESP as per medical team Lisinopril [Zestril] 5 mg PO DAILY as per medical team Methylprednisolone [Medrol Dose Pack (21 tabs)] See Taper PO DAILY as per medical team Multivitamin Therapeutic Tab [Thera Tab] 1 tab PO 0800 tab as per medical team Sertraline [Zoloft] will be increased to 100 mg daily for depression and anxiety Thiamine [Vitamin B1 Tab] 100 mg PO DAILY will be continued Ziprasidone [Geodon Cap] 20 mg PO BID will be continued Ziprasidone [Geodon Cap] 20 mg PO HS will be continued Ziprasidone [Geodon Inj] 20 mg IM Q8H PRN vial 08/18/17 traZODone [Desyrel] 100 mg PO HS was discontinued Ambien 5 mg at the nighttime as needed for insomnia Medical consult appreciated consultation for discharge plan and social issues Family involvement Follow up on labs Will monitor closely Pt was educated about risk/benefits and alternatives of medications, coping strategies (safety plan, suicide prevention), relapse prevention, importance of follow up with psychiatrist and therapist, stay away from drugs/alcohol/smoking Estimated Date of D/C: 08/21/17
[2017-08-21] MEDS: Albuterol-Ipratrop 3 mg / 0.5 (3 ml) UD IH SCH ×5 (06:20→22:45)
[2017-08-21 06:29] VITALS: O2SAT 93
[2017-08-21] MEDS: Multivitamin With Minerals Tab PO SCH (08:50)
--- NOTE | 2017-08-21 17:29 | PCM.PYCHPN ---
Psychiatric Progress Note - Psychiatric Progress Note Patient seen today, length of contact: 30 minutes Patient Chief Complaint: "I'm feeling better" Problems Identified/Issues Discussed: Suicide/ homicide prevention, past psychiatric h/o, current psychiatric symptoms , medical problems, risk/benefits and alternatives of medications, medications compliance, coping strategies, substance abuse h/o, relapse prevention, importance of follow up with psychiatrist and therapist, discharge plan. Medical Problems: alcohol withdrawal also better, hypertension Diagnostic Results: 08/20/17 11:35 08/20/17 11:35 Lab Results 08/20/17 11:35: Sodium 139, Potassium 4.2, Chloride 105, Carbon Dioxide 24, Anion Gap 15, BUN 20, Creatinine 0.8, Est GFR ( Amer) > 60, Est GFR (Non- Af Amer) > 60, Random Glucose 89, Calcium 9.2, Total Bilirubin 1.1, AST 456 H, ALT 679 H, Alkaline Phosphatase 80, Total Protein 7.0, Albumin 4.2, Globulin 2.9 , Albumin/Globulin Ratio 1.5 08/20/17 11:35: WBC 9.6, RBC 4.17, Hgb 14.1, Hct 41.0 L, MCV 98.3, MCH 33.8, MCHC 34.4, RDW 14.1, Plt Count 245, MPV 11.0, Gran % 66.3, Lymph % (Auto) 16.2 L , [place] % (Auto) 13.4 H, Eos % (Auto) 3.8, Baso % (Auto) 0.3, Gran # 6.35, Lymph # (Auto) 1.6, [place] # (Auto) 1.3 H, Eos # (Auto) 0.4, Baso # (Auto) 0.03 08/19/17 07:15: RPR Nonreactive 08/19/17 07:15: TSH 3rd Generation 1.73 08/19/17 07:15: Sodium 139, Potassium 3.8, Chloride 107, Carbon Dioxide 22, Anion Gap 14, BUN 21, Creatinine 0.8, Est GFR ( Amer) > 60, Est GFR (Non- Af Amer) > 60, Random Glucose 93, Calcium 8.6, Total Bilirubin 1.1, AST 384 H, ALT 548 H, Alkaline Phosphatase 79, Total Protein 6.7, Albumin 3.8, Globulin 2.9 , Albumin/Globulin Ratio 1.3 08/19/17 07:15: WBC 9.4, RBC 3.98, Hgb 13.3 L, Hct 38.9 L, MCV 97.7, MCH 33.4, MCHC 34.2, RDW 14.5, Plt Count 225, MPV 11.2 H, Gran % 71.8 H, Lymph % (Auto) 15.5 L, [place] % (Auto) 9.9 H, Eos % (Auto) 2.6, Baso % (Auto) 0.2, Gran # 6.76 H , Lymph # (Auto) 1.5, [place] # (Auto) 0.9 H, Eos # (Auto) 0.2, Baso # (Auto) 0.02 Vital Signs Temp Pulse Resp BP 08/20/17 08:54 69 136/94 H 08/20/17 08:52 69 136/94 H 08/20/17 07:37 97.8 F 69 20 136/94 H 08/19/17 16:00 60 109/71 08/19/17 08:25 84 152/111 H 08/19/17 07:11 97.5 F L 84 20 152/111 H 08/18/17 16:00 64 127/88 08/18/17 15:43 20 DSM 5 Symptoms Update: shortly he shouldn't is 46 year old English male, reported history of "paranoid schizophrenia ", denied previous psychiatric admissions, history of alcohol use disorder, multiple detoxes in the past, history of incarceration for 7 years, patient has outpatient psychiatrist Dr. Thomas, patient came to the hospital for evaluation of chest pain while evaluated patient presented to be disorganized, psychotic, was feeling that devil is going to take his soul, patient required admission to the medical side for alcohol withdrawal symptoms, stabilized, was transferred to the psychiatric inpatient unit 08/20/17, transfer was uneventful. Even though that patient had outpatient provider, patient was compliant with the medications, but patient was not able to function, required further evaluation and stabilization and medication adjustment in psychiatric inpatient unit. patient was seen today at the treatment team meeting room, patient presented to have acceptable personal hygiene, patient reported that his withdrawal symptoms are much better. family meeting scheduled today with his , conducted at psychiatric inpatient unit, with the social work therapist, this commercial lines underwriter, patient and his , please see social work therapist notes for more detailed information. As per right now patient is doing better but not ready to be discharged, patient express highs concerns about patient's safety and unhealthy habits such as alcohol use disorder, patient reported that at present moment patient is not ready for discharge and high risk of relapse on alcohol, patient's family requested for the patient to stay up until Thursday, PT's reports pt still has some "paranoia with and God shunning him" while talked to him over the phone and prior to the family meeting. Pt's will be home on Thursday and "it will be safer discharge". patient will be discharged under custody of , with the follow-up appointment with on Thursday. Patient still presented with mild disorganized thoughts and paranoia, but with improvements. As per staff patient was trying to attend groups, but was argumentative over the Anab[employer]ist believes of others, pt was redirected by staff but no agitation or aggression. So far patient tolerates medications well, no side effects observed or reported , aims 0, no EPS. Impression: Patient has history of schizophrenia, alcohol use disorder Rule out delusional disorder Medication Change: Yes (fred increased hs) Medical Record Reviewed: Yes Consults ordered or reviewed: medical consult appreciated Mental Status Examination - Cognitive Function Orientation: Person, Place, Situation Memory: Intact Attention: Poor (with some improvement) Concentration: Poor (but with some improvement) Association: Loose (improving) Fund of Knowledge: WNL - Mood Mood: Depressed, Anxious - Affect Affect: Constricted (but reactive) - Speech Speech: Appropriate - Formal Thought Process Formal Thought Process: Delusions (with improvement) - Suicidal Ideation Suicidal Ideation: No - Homicidal Ideation Homicidal Ideation: No Goal/Treatment Plan - Goal/Treatment Plan Need for Continued Stay: Remain at risks for inpatient hospitalization, Severe depression anxiety, Discharge may exacerbated symptoms, Severe functional impairment Progress Toward Problem(s) and Goals/Treatment Plan: milieu, structure, supportive therapy Atenolol [Tenormin] 12.5 mg PO DAILY as per medical team Folic Acid 1 mg PO DAILY will be continued Levalbuterol [Xopenex] 1.25 mg IH TIDRESP as per medical team Lisinopril [Zestril] 5 mg PO DAILY as per medical team Methylprednisolone [Medrol Dose Pack (21 tabs)] See Taper PO DAILY as per medical team Multivitamin Therapeutic Tab [Thera Tab] 1 tab PO 0800 tab as per medical team Sertraline [Zoloft] 100 mg daily for depression and anxiety Thiamine [Vitamin B1 Tab] 100 mg PO DAILY will be continued Ziprasidone [Geodon Cap] 20 mg PO BID Ziprasidone [Geodon Cap] 40 mg PO HS Ziprasidone [Geodon Inj] 20 mg IM Q8H PRN vial 08/18/17 traZODone [Desyrel] 100 mg PO HS was discontinued Ambien 5 mg at the nighttime as needed for insomnia Medical consult appreciated consultation for discharge plan and social issues Family involvement Follow up on labs Will monitor closely Pt was educated about risk/benefits and alternatives of medications, coping strategies (safety plan, suicide prevention), relapse prevention, importance of follow up with psychiatrist and therapist, stay away from drugs/alcohol/smoking patient is scheduled for discharge on Thursday All prescriptions filed into the chart Estimated Date of D/C: 08/23/17
[2017-08-22] MEDS: Albuterol-Ipratrop 3 mg / 0.5 (3 ml) UD IH SCH ×6 (00:20→23:04)
[2017-08-22 07:14] VITALS: RESP 20
--- NOTE | 2017-08-22 09:45 | PCM.PYCHPN ---
Psychiatric Progress Note - Psychiatric Progress Note Patient seen today, length of contact: 25 minutes Patient Chief Complaint: better Problems Identified/Issues Discussed: I reviewed assessment and recent notes. Patients mood and mental status have been improving this past week. He is pleasant, bright and groomed during my visit this morning. Alert and oriented to month, year, location and circumstances. Visible on the unit and attending groups. He denies hallucinations, side effects or new discomfort. Reports that he is sleeping well. Overall his responses are coherent and relevant to questioning. There are no overt signs of disorganization or delusions. He is looking forward to discharge tomorrow. Impulses are in control today and there were no behavioral issues overnight. Diagnostic Results: Patient has history of schizophrenia, alcohol use disorder Rule out delusional disorder Medication Change: No ( ) Medical Record Reviewed: Yes Mental Status Examination - Cognitive Function Orientation: Person, Place, Situation Memory: Intact Attention: WNL (with some improvement) Concentration: Poor (but with some improvement) Association: Loose (improving) Fund of Knowledge: WNL - Mood Mood: Depressed (better), Anxious - Affect Affect: Constricted (pleasant and bright) - Speech Speech: Appropriate - Formal Thought Process Formal Thought Process: Delusions (with improvement, none elicited today) - Suicidal Ideation Suicidal Ideation: No - Homicidal Ideation Homicidal Ideation: No Goal/Treatment Plan - Goal/Treatment Plan Need for Continued Stay: Remain at risks for inpatient hospitalization, Severe depression anxiety, Discharge may exacerbated symptoms, Severe functional impairment Progress Toward Problem(s) and Goals/Treatment Plan: * c/w current tx and plan * No new weekend labs * Vitals reviewed and noted below: Selected Entries 08/22/17 07:14 Temperature 97.8 F Pulse Rate 67 Respiratory 20 Rate Blood Pressure 145/100 H * Discharge planned for the AM on 08/23/17 if patient remains improved. Estimated Date of D/C: 08/23/17
[2017-08-22] MEDS: Multivitamin With Minerals Tab PO SCH (09:54)
[2017-08-23] MEDS: Albuterol-Ipratrop 3 mg / 0.5 (3 ml) UD IH SCH ×2 (04:29→08:24)
[2017-08-23 07:51] VITALS: BP 117/60; PULSE 58; TEMP 97.9
[2017-08-23] MEDS: Multivitamin With Minerals Tab PO SCH (09:23)
--- NOTE | 2017-08-23 09:58 | PCM.PYCHDC ---
Mental Status Examination - Mental Status Examination Orientation: Person, Place, Situation Memory: Intact Mood: Neutral Affect: Broad Speech: Appropriate Attention: WNL Concentration: WNL Association: WNL Fund of Knowledge: WNL Formal Thought Process: No Impairment Description of patient's judgement and insight: Improved and fair insight and judgement Psychotic Thoughts and Behaviors: Denied AVH, delusions were not elicited, patient was not paranoid Suicidal Ideation: No Current Homicidal Ideation?: No Discharge Summary - Discharge Note Reason for Hospitalization: Patient is a 46 year old [place] male, reported history of "paranoid schizophrenia ", denied previous psychiatric admissions, history of alcohol use disorder, multiple detoxes in the past, history of incarceration for 7 years, patient has outpatient psychiatrist Dr. Thomas, patient came to the hospital for evaluation of chest pain while evaluated patient presented to be disorganized, psychotic, was feeling that devil is going to take his soul, patient required admission to the medical side for alcohol withdrawal symptoms, stabilized, was transferred to the psychiatric inpatient unit 08/20/17, transfer was uneventful. Even though that patient had outpatient provider, patient was compliant with the medications, but patient was not able to function, required further evaluation and stabilization and medication adjustment in psychiatric inpatient unit. Psychiatric History (includes Medical, Family, Personal Hx): see HPI Laboratory Data: Laboratory Tests 08/19/17 08/19/17 08/19/17 07:15 07:15 07:15 WBC 9.4 RBC 3.98 Hgb 13.3 L Hct 38.9 L MCV 97.7 MCH 33.4 MCHC 34.2 RDW 14.5 Plt Count 225 MPV 11.2 H Gran % 71.8 H Lymph % (Auto) 15.5 L [place] % (Auto) 9.9 H Eos % (Auto) 2.6 Baso % (Auto) 0.2 Gran # 6.76 H Lymph # (Auto) 1.5 [place] # (Auto) 0.9 H Eos # (Auto) 0.2 Baso # (Auto) 0.02 Sodium 139 Potassium 3.8 Chloride 107 Carbon Dioxide 22 Anion Gap 14 BUN 21 Creatinine 0.8 Est GFR ( Amer) > 60 Est GFR (Non-Af Amer) > 60 Random Glucose 93 Calcium 8.6 Total Bilirubin 1.1 AST 384 H ALT 548 H Alkaline Phosphatase 79 Total Protein 6.7 Albumin 3.8 Globulin 2.9 Albumin/Globulin Ratio 1.3 TSH 3rd Generation 1.73 RPR 08/19/17 08/20/17 08/20/17 07:15 11:35 11:35 WBC 9.6 RBC 4.17 Hgb 14.1 Hct 41.0 L MCV 98.3 MCH 33.8 MCHC 34.4 RDW 14.1 Plt Count 245 MPV 11.0 Gran % 66.3 Lymph % (Auto) 16.2 L [place] % (Auto) 13.4 H Eos % (Auto) 3.8 Baso % (Auto) 0.3 Gran # 6.35 Lymph # (Auto) 1.6 [place] # (Auto) 1.3 H Eos # (Auto) 0.4 Baso # (Auto) 0.03 Sodium 139 Potassium 4.2 Chloride 105 Carbon Dioxide 24 Anion Gap 15 BUN 20 Creatinine 0.8 Est GFR ( Amer) > 60 Est GFR (Non-Af Amer) > 60 Random Glucose 89 Calcium 9.2 Total Bilirubin 1.1 AST 456 H ALT 679 H Alkaline Phosphatase 80 Total Protein 7.0 Albumin 4.2 Globulin 2.9 Albumin/Globulin Ratio 1.5 TSH 3rd Generation RPR Nonreactive Consultations:: List each consultation separately and include: 1. Reason for request. 2. Findings. 3. Follow-up Consultations: Patient seen by Dr. Muniz on 08/20/17 who signed off on this day Summary of Hospital Course include:: 1. Description of specific treatment plan utilized for patients during their course of treatmen. 2. Summarize the time- course for resolution of acute symptoms and/or regressed behaviors. 3. Describe issues identified and worked on during hospitalization. 4. Describe medication utilized. 5. Describe medical problems identified and treated. 6. Reassessment of suicide risk Summary of Hospital Course: PER DR. PAINTER'S PROGRESS NOTE ON 08/21/17 shortly he shouldn't is 46 year old [place] male, reported history of "paranoid schizophrenia ", denied previous psychiatric admissions, history of alcohol use disorder, multiple detoxes in the past, history of incarceration for 7 years, patient has outpatient psychiatrist Dr. Thomas, patient came to the hospital for evaluation of chest pain while evaluated patient presented to be disorganized, psychotic, was feeling that devil is going to take his soul, patient required admission to the medical side for alcohol withdrawal symptoms, stabilized, was transferred to the psychiatric inpatient unit 08/20/17, transfer was uneventful. Even though that patient had outpatient provider, patient was compliant with the medications, but patient was not able to function, required further evaluation and stabilization and medication adjustment in psychiatric inpatient unit. patient was seen today at the treatment team meeting room, patient presented to have acceptable personal hygiene, patient reported that his withdrawal symptoms are much better. family meeting scheduled today with his , conducted at psychiatric inpatient unit, with the social insurance specialist, this service writer advisor, patient and his , please see social insurance specialist notes for more detailed information. As per right now patient is doing better but not ready to be discharged, patient express highs concerns about patient's safety and unhealthy habits such as alcohol use disorder, patient reported that at present moment patient is not ready for discharge and high risk of relapse on alcohol, patient's family requested for the patient to stay up until Thursday, PT's reports pt still has some "paranoia with and God shunning him" while talked to him over the phone and prior to the family meeting. Pt's will be home on Thursday and "it will be safer discharge". patient will be discharged under custody of , with the follow-up appointment with on Thursday. Patient still presented with mild disorganized thoughts and paranoia, but with improvements. As per staff patient was trying to attend groups, but was argumentative over the Zoroastrianism believes of others, pt was redirected by staff but no agitation or aggression. So far patient tolerates medications well, no side effects observed or reported , aims 0, no EPS. PROGRESS/DISCHARGE NOTE by Dr. Arreaga 08/23/17. I interviewed patient at bedside to assess continued stability for discharge. Patient is alert and well-oriented to month, year and circumstances. Eye contact is good. Patient feels improved and denies any suicidal thoughts or thoughts to harm others. Affect remains calm, pleasant and appropriately reactive. Patient denies hallucinations and is not responding to internal stimuli. Thought process is fairly coherent and responses have been relevant to questioning all weekend. Patient feels comfortable with discharge today and denies any new concerns. Denies acute discomfort or pain. Tolerating medications and denies any issues with them. Delusions and paranoia were not elicited on day of discharge. There were no behavioral issues all weekend. - Final Diagnosis (DSM 5) Condition upon Discharge: GOOD DSM 5: Patient has history of schizophrenia, alcohol use disorder Rule out delusional disorder Disposition: HOME/ ROUTINE Follow-up Treatment Plan: PER SOCIAL WORK NOTE: 08/21/17 11:21 - Social Work Progress Note by CarrilloFrances Sammy Acct Num: [id number] : 1970 Patient Age: 46 Family Meeting: PT and pt's , Aarti met with RICARDA Aguilera and medical student. PT's stated pt's symptoms started about 1 year ago. PT reports he initially started drinking socially and became dependent on alcohol starting in May 2017. PT' s reports pt was sober for 10 years. Pt's reports pt started to became paranoid and religiously preoccupied. PT's had encouraged patient to stop drinking. PT's psychiatrist Dr. Thomas instructed patient to stop medications because medications will not be effective and will cause patient to psychotic symptoms. PT's reports pt has a severe paranoia with and God shunning him. PT's reports pt's family is very latter day, almost fanatic like. PT's reports pt and her sometimes have some friction in their marriage due to his latter day beliefs. PT's reports pt stated he was going to and if he was going to , he might as well drink. PT's reports pt is "petrified" about in which he is sometimes shaking. PT's reports when pt is consuming alcohol is almost in a coma state. Pt's reports she tries to encourage patient to have a productive life and to not allow his mental illness to be a handicap. Dr. Jo discussed treatment plan, including possible prescription of Naltroxon once pt's liver enzymes have improved. Pt reports he does not want to drink alcohol anymore. PT stated, "I was substituting medications with alcohol." Dr. Jo encouraged patient to remain compliant with medications, attend AA meetings and obtain sponsor in the community. RICARDA encouraged patient to follow up with outpatient substance use program. Pt refused and believes he is able to stop drinking on his own. Dr. Jo suggested for patient to have therapist. Pt verbalized understanding. Patient to be d/c on Wednesday, August 23, 2017. ~~~~~~~~~~ Prescriptions were left in patient's chart by Dr. Painter on ThursdayAugust 21 in preparation for patient's discharge on Wednesday, August 23, 2017 Prescriptions/Medication Reconciliation: Atenolol [Tenormin] 12.5 mg PO DAILY #7 tab Folic Acid 1 mg PO DAILY #14 tab Lisinopril [Zestril] 5 mg PO DAILY #14 tab Multimineral/Multivitamin [Therapeutic-M Tab] 1 tab PO 0800 #14 tab Sertraline [Zoloft] 100 mg PO DAILY #14 tab Thiamine [Vitamin B1 Tab] 100 mg PO DAILY #14 tab traZODone [Desyrel] 100 mg PO HS #14 tab Ziprasidone [Geodon] 60 mg PO HS #14 cap Zolpidem [Ambien] 5 mg PO HS PRN #14 tab PRN Reason: Insomnia - Antipsychotic Medications Pt discharged on 2 or more routine antipsychotic medications: No
== END 2017-08-23 11:21 | disposition home or self-care (01) | DRG 885 ==
LOC: PSYC 13:12
PROVIDERS: ADMIT Psychiatry & Neurology Psychiatry; ATTEND Psychiatry & Neurology Psychiatry
PROC: GZ3ZZZZ Medication Management (ICD-10-PCS; principal; 2017-08-18)
DX: F20.0 Paranoid schizophrenia (principal); F10.231 Alcohol dependence with withdrawal delirium; K70.10 Alcoholic hepatitis without ascites; I10 Essential (primary) hypertension; R56.9 Unspecified convulsions; F17.290 Nicotine dependence, other tobacco product, uncomplicated

== ENCOUNTER 2017-09-02 08:25 | Inpatient (IN) | payer OTHER ==
[2017-09-02 08:25] VITALS: BMI 34.9
[2017-09-02 08:58] LABS: BASO # 0.06 K/mm3 (0.0-2.0); BASO % 0.5 % (0.0-3.0); EOS # 0.3 (0.0-0.7); EOS % 2.7 % (1.5-5.0); GRAN # 9.95 (1.4-6.5); GRAN % 80.9 % (50.0-68.0); HEMOGLOBIN 14.7 g/dL (14.0-18.0); LYMPH # 1.1 (1.2-3.4); LYMPH % 9.3 % (22.0-35.0); MEAN CELL VOLUME 97.2 fl (80.0-105.0); MEAN CORPUSCULAR HEMOGLOBIN 34.1 pg (25.0-35.0); MEAN CORPUSCULAR HGB CONC 35.1 g/dl (31.0-37.0); MEAN PLATELET VOLUME 10.7 fl (7.0-11.0); MONO # 0.8 (0.1-0.6); MONO % 6.6 % (1.0-6.0); RBC 4.31 10^6/uL (3.5-6.1); WHITE BLOOD COUNT 12.3 10^3/ul (4.5-11.0)
[2017-09-02 09:08] LABS: PARTIAL THROMBOPLASTIN TIME 29.6 Seconds (25.1-36.5); PROTHROMBIN TIME 11.5 SECONDS (9.4-12.5)
[2017-09-02] MEDS ORDERED: Multivitamin (MVI) 10 ML, Thiamine 100 MG, Folic Acid 1 MG in Dextrose 5% In Water 1,00... IV ONE (09:09)
[2017-09-02 09:16] LABS: ALB/GLOB RATIO 1.5 (1.1-1.8); ALBUMIN 4.6 g/dL (3.0-4.8); ALT/SGPT 110 U/L (7-56); AST/SGOT 82 U/L (17-59); BLOOD UREA NITROGEN 15 mg/dL (7-21); CALCIUM 9.7 mg/dL (8.4-10.5); GFR AFRICAN-AMERICAN > 60; GFR NON-AFRICAN AMERICAN > 60
[2017-09-02 09:20] LABS: TROPONIN I < 0.01 ng/mL
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
--- NOTE | 2017-09-02 10:26 | RAD ---
HISTORY: alcohol withdrawal COMPARISON: 08/12/2017 FINDINGS: LUNGS: No active pulmonary disease. PLEURA: No significant pleural effusion identified, no pneumothorax apparent. CARDIOVASCULAR: Normal. OSSEOUS STRUCTURES: No significant abnormalities. VISUALIZED UPPER ABDOMEN: Normal. OTHER FINDINGS: None. IMPRESSION: No active disease.
[2017-09-02] MEDS ORDERED: Magnesium Sulfate 2 GM in Sodium Chloride 0.9% 100 ML IVPB ONE (11:42)
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
[2017-09-02] MEDS ORDERED: Albuterol-Ipratrop 3 mg / 0.5 (3 ml) UD IH PRN (13:00)
[2017-09-02 14:09] LABS: BARBITURATES, UR NEGATIVE (NEGATIVE); BENZODIAZEPINES, UR NEGATIVE (NEGATIVE); OPIATES, UR NEGATIVE (NEGATIVE); PHENCYCLIDINE, UR NEGATIVE (NEGATIVE)
[2017-09-02 14:35] LABS: URINE BILIRUBIN NEGATIVE (NEGATIVE); URINE BLOOD NEGATIVE (NEGATIVE); URINE GLUCOSE (UA) NEGATIVE (NEGATIVE); URINE LEUKOCYTE ESTERASE NEGATIVE Leu/uL (NEGATIVE); URINE PROTEIN NEGATIVE mg/dL (<30 mg/dL); URINE UROBILINOGEN 0.2 E.U./dL (<1 E.U./dL)
[2017-09-02 14:44] LABS: URINE APPEARANCE CLEAR (CLEAR); URINE COLOR YELLOW (YELLOW)
[2017-09-02] MEDS ORDERED: Pneumococcal 23-Valent Vaccine IM ONE (17:32)
--- NOTE | 2017-09-02 19:17 | CARD ---
APPROVED REPORT EKG Measurement Heart [id number] <Conclusion> Poor data quality, interpretation may be adversely affected Normal sinus rhythm Minimal voltage criteria for LVH, may be normal variant Prolonged QT Abnormal ECG
[2017-09-03] MEDS ORDERED: Multivitamin (MVI) 10 ML, Thiamine 100 MG, Folic Acid 1 MG in Sodium Chloride 0.9% 1,00... IV ONE
[2017-09-03 01:51] VITALS: RESP 20
[2017-09-03 06:43] LABS: BASO # 0.03 K/mm3 (0.0-2.0); BASO % 0.4 % (0.0-3.0); EOS # 0.5 (0.0-0.7); EOS % 5.6 % (1.5-5.0); GRAN # 5.91 (1.4-6.5); GRAN % 70.8 % (50.0-68.0); HEMOGLOBIN 13.8 g/dL (14.0-18.0); LYMPH # 1.3 (1.2-3.4); LYMPH % 15.1 % (22.0-35.0); MEAN CELL VOLUME 97.1 fl (80.0-105.0); MEAN CORPUSCULAR HEMOGLOBIN 33.1 pg (25.0-35.0); MEAN CORPUSCULAR HGB CONC 34.1 g/dl (31.0-37.0); MEAN PLATELET VOLUME 10.9 fl (7.0-11.0); MONO # 0.7 (0.1-0.6); MONO % 8.1 % (1.0-6.0); RBC 4.17 10^6/uL (3.5-6.1); RED CELL DISTRIBUTION WIDTH 14.1 % (11.5-14.5); WHITE BLOOD COUNT 8.4 10^3/ul (4.5-11.0)
[2017-09-03 07:33] LABS: ALB/GLOB RATIO 1.4 (1.1-1.8); ALBUMIN 3.9 g/dL (3.0-4.8); ALT/SGPT 85 U/L (7-56); AST/SGOT 79 U/L (17-59); BLOOD UREA NITROGEN 12 mg/dL (7-21); CALCIUM 8.7 mg/dL (8.4-10.5); GFR AFRICAN-AMERICAN > 60; GFR NON-AFRICAN AMERICAN > 60
[2017-09-03] MEDS: Multivitamin Therapeutic Tab PO SCH (09:26)
--- NOTE | 2017-09-03 10:35 | CP.PCM.PN ---
<Indigo Morris - Last Filed: 09/03/17 11:45> Subjective - Date & Time of Evaluation Date of Evaluation: 09/03/17 Time of Evaluation: 10:34 - Subjective Subjective: Internal Medicine Progress Note: Patient seen and examined at bedside. Per nursing no acute events overnight. Patient is doing well this morning, denies any complaints. Having some tremors. Denies headaches, dizziness, cp, palpitations, sob, abdominal pain, urinary symptoms. Objective - Vital Signs/Intake and Output Vital Signs (last 24 hours): Temp Pulse Resp BP Pulse Ox 98.7 F 112 H 20 155/107 H 97 09/03/17 06:00 09/03/17 09:21 09/03/17 06:00 09/03/17 09:21 09/03/17 06:00 Intake and Output: 09/03/17 09/03/17 06:59 18:59 Intake Total 1300 Output Total 600 Balance 700 - Medications Medications: Current Medications Albuterol/Ipratropium (Duoneb 3 Mg/0.5 Mg (3 Ml) Ud) 3 ml IH Q6H PRN PRN Reason: Wheezing Last Admin: 09/02/17 13:09 Dose: 3 ml Atenolol (Tenormin) 25 mg PO DAILY [facility] Last Admin: 09/03/17 09:21 Dose: 25 mg Folic Acid (Folic Acid) 1 mg PO DAILY [facility] Last Admin: 09/03/17 09:21 Dose: 1 mg Hydralazine HCl (Apresoline) 10 mg IVP Q6 PRN PRN Reason: Systolic Blood Pressure Last Admin: 09/03/17 05:31 Dose: 10 mg Lorazepam (Ativan) 1 mg IVP Q4H PRN; Protocol PRN Reason: Seizure activity Lorazepam (Ativan) 1 mg IVP Q6H MICH PRN Reason: Protocol Multivitamins (Thera Tab) 1 tab PO DAILY [facility] Last Admin: 09/03/17 09:26 Dose: 1 tab Nicotine (Nicoderm Cq) 1 patch TD DAILY [facility] Last Admin: 09/03/17 09:21 Dose: 1 patch Ondansetron HCl (Zofran Inj) 4 mg IVP Q4H PRN PRN Reason: Nausea/Vomiting Pantoprazole Sodium (Protonix Ec Tab) 40 mg PO ACB [facility] Sertraline HCl (Zoloft) 100 mg PO DAILY [facility] Last Admin: 09/03/17 09:21 Dose: 100 mg Thiamine HCl (Vitamin B1 Tab) 100 mg PO DAILY [facility] Last Admin: 09/03/17 09:21 Dose: 100 mg Trazodone HCl (Desyrel) 100 mg PO HS [facility] Last Admin: 09/02/17 22:33 Dose: 100 mg - Labs Labs: 09/03/17 05:30 09/03/17 05:30 PT 11.5 SECONDS (9.4-12.5) 09/02/17 08:45 INR 1.00 (0.93-1.08) 09/02/17 08:45 APTT 29.6 Seconds (25.1-36.5) 09/02/17 08:45 - Additional Findings Additional findings: - Constitutional Appears: Non-toxic, No Acute Distress - Head Exam Head Exam: ATRAUMATIC, NORMAL INSPECTION, NORMOCEPHALIC - Eye Exam Eye Exam: EOMI, Normal appearance, PERRL. absent: Conjunctival injection, Scleral icterus Pupil Exam: NORMAL ACCOMODATION - ENT Exam ENT Exam: Mucous Membranes Moist - Neck Exam Neck exam: Positive for: Full Rom, Normal Inspection - Respiratory Exam Respiratory Exam: Wheezes, NORMAL BREATHING PATTERN. absent: Accessory Muscle Use, Rales, Rhonchi, Respiratory Distress - Cardiovascular Exam Cardiovascular Exam: REGULAR RHYTHM, RRR, +S1, +S2. absent: Systolic Murmur - GI/Abdominal Exam GI & Abdominal Exam: Normal Bowel Sounds, Soft. absent: Distended, Firm, Guarding, Rigid, Tenderness - Rectal Exam Rectal Exam: Deferred - Extremities Exam Extremities exam: Positive for: normal capillary refill, normal inspection, pedal pulses present - Neurological Exam Neurological exam: Alert, CN II-XII Intact, Oriented x3 - Psychiatric Exam Psychiatric exam: Depressed - Skin Skin Exam: Dry, Intact, Normal Color, Warm Assessment and Plan - Assessment and Plan (Free Text) Assessment: Patient is a 46 yo male PMHx paranoid schizophrenia, HTN, depression, and seizure presents for EtOH withdrawal. Plan: Alcohol withdrawal/Alcohol abuse -Stable, afebrile -Will discontinue telemetry -Alcohol level was 12 on admission -Ativan 1mg q6H MICH -Ativan 2mg q4H prn -CIWA protocol -Continue PO Multivitamins, Thiamine, Folic Acid -Heart Healthy diet -Zofran prn -Aspiration, Seizure, fall risk -Will talk to case management social worker about possible outpatient rehab options Transaminitis -Trending down -Hep panel negative -Will continue to monitor Leukocytosis -Now normalized -No signs of infection Hx of HTN -Atenolol 25mg qd -Hydralazine 10mg ivp q6 prn Hx of tobacco abuse -Duoneb 3ml q6 prn wheezing -Nicoderm patch -Smoking cessation counseling Hx of psych disorders -continue home medications regimen Plan discussed with Dr Calero <Selina Calero - Last Filed: 09/04/17 16:41> Objective - Vital Signs/Intake and Output Vital Signs (last 24 hours): Temp Pulse Resp BP Pulse Ox 98.3 F 72 20 125/93 H 100 09/04/17 07:00 09/04/17 07:00 09/04/17 07:00 09/04/17 09:35 09/04/17 10:10 Intake and Output: 09/04/17 09/04/17 06:59 18:59 Intake Total 920 Balance 920 - Labs Labs: 09/04/17 06:15 09/04/17 06:15 PT 11.5 SECONDS (9.4-12.5) 09/02/17 08:45 INR 1.00 (0.93-1.08) 09/02/17 08:45 APTT 29.6 Seconds (25.1-36.5) 09/02/17 08:45 Attending/Attestation - Attestation I have personally seen and examined this patient.: Yes I have fully participated in the care of the patient.: Yes I have reviewed all pertinent clinical information, including history, physical exam and plan: Yes Notes (Text): 09/04/17 16:41 Medical record note made by the resident after discussion with my direction and input after the patient was personally seen and examined by me. I have reviewed the chart and agree that the record accurately reflects by personal performance of the history, physical exam, data review, and medical decision-making, in the course for the patient. I have also personally directed the plan of care.
[2017-09-04] MEDS ORDERED: DiphenhydrAMINE 12.5 mg/5 ml LIQ UD (5 ml) PO ONE (00:18)
[2017-09-04 06:53] LABS: BASO # 0.03 K/mm3 (0.0-2.0); BASO % 0.3 % (0.0-3.0); EOS # 0.7 (0.0-0.7); GRAN # 5.73 (1.4-6.5); GRAN % 66.1 % (50.0-68.0); HEMOGLOBIN 13.5 g/dL (14.0-18.0); LYMPH # 1.5 (1.2-3.4); LYMPH % 17.1 % (22.0-35.0); MEAN CELL VOLUME 97.3 fl (80.0-105.0); MEAN CORPUSCULAR HEMOGLOBIN 32.8 pg (25.0-35.0); MEAN CORPUSCULAR HGB CONC 33.8 g/dl (31.0-37.0); MEAN PLATELET VOLUME 10.7 fl (7.0-11.0); MONO # 0.7 (0.1-0.6); MONO % 8.5 % (1.0-6.0); RBC 4.11 10^6/uL (3.5-6.1); RED CELL DISTRIBUTION WIDTH 13.9 % (11.5-14.5); WHITE BLOOD COUNT 8.7 10^3/ul (4.5-11.0)
[2017-09-04] MEDS ORDERED: Pantoprazole 40 mg EC Tab PO SCH (07:30)
[2017-09-04 07:42] LABS: ALB/GLOB RATIO 1.5 (1.1-1.8); ALBUMIN 3.9 g/dL (3.0-4.8); ALT/SGPT 99 U/L (7-56); AST/SGOT 119 U/L (17-59); BLOOD UREA NITROGEN 13 mg/dL (7-21); GFR AFRICAN-AMERICAN > 60; GFR NON-AFRICAN AMERICAN > 60
[2017-09-04 07:53] VITALS: BP 125/93; PULSE 72; TEMP 98.3; O2SAT 100
[2017-09-04] MEDS: Multivitamin Therapeutic Tab PO SCH (09:27)
--- NOTE | 2017-09-04 11:34 | CP.PCM.DIS ---
<Indigo Morris - Last Filed: 09/04/17 12:58> Provider - Provider Date of Admission: 09/02/17 11:22 Attending physician: Selina Calero MD Primary care physician: Kanwal Duque MD Time Spent in preparation of Discharge (in minutes): 32 Hospital Course - Lab Results Lab Results: Most Recent Lab Values WBC 8.7 10^3/ul (4.5-11.0) 09/04/17 06:15 RBC 4.11 10^6/uL (3.5-6.1) 09/04/17 06:15 Hgb 13.5 g/dL (14.0-18.0) L 09/04/17 06:15 Hct 40.0 % (42.0-52.0) L 09/04/17 06:15 MCV 97.3 fl (80.0-105.0) 09/04/17 06:15 MCH 32.8 pg (25.0-35.0) 09/04/17 06:15 MCHC 33.8 g/dl (31.0-37.0) 09/04/17 06:15 RDW 13.9 % (11.5-14.5) 09/04/17 06:15 Plt Count 216 10^3/uL (120.0-450.0) 09/04/17 06:15 MPV 10.7 fl (7.0-11.0) 09/04/17 06:15 Gran % 66.1 % (50.0-68.0) 09/04/17 06:15 Lymph % (Auto) 17.1 % (22.0-35.0) L 09/04/17 06:15 [facility] % (Auto) 8.5 % (1.0-6.0) H 09/04/17 06:15 Eos % (Auto) 8.0 % (1.5-5.0) H 09/04/17 06:15 Baso % (Auto) 0.3 % (0.0-3.0) 09/04/17 06:15 Gran # 5.73 (1.4-6.5) 09/04/17 06:15 Lymph # (Auto) 1.5 (1.2-3.4) 09/04/17 06:15 [facility] # (Auto) 0.7 (0.1-0.6) H 09/04/17 06:15 Eos # (Auto) 0.7 (0.0-0.7) 09/04/17 06:15 Baso # (Auto) 0.03 K/mm3 (0.0-2.0) 09/04/17 06:15 PT 11.5 SECONDS (9.4-12.5) 09/02/17 08:45 INR 1.00 (0.93-1.08) 09/02/17 08:45 APTT 29.6 Seconds (25.1-36.5) 09/02/17 08:45 Sodium 138 mmol/L (132-148) 09/04/17 06:15 Potassium 3.8 mmol/L (3.6-5.0) 09/04/17 06:15 Chloride 103 mmol/L (98-107) 09/04/17 06:15 Carbon Dioxide 26 mmol/L (21-33) 09/04/17 06:15 Anion Gap 14 (10-20) 09/04/17 06:15 BUN 13 mg/dL (7-21) 09/04/17 06:15 Creatinine 0.8 mg/dl (0.8-1.5) 09/04/17 06:15 Est GFR ( Amer) > 60 09/04/17 06:15 Est GFR (Non-Af Amer) > 60 09/04/17 06:15 Random Glucose 98 mg/dL (70-110) 09/04/17 06:15 Calcium 9.0 mg/dL (8.4-10.5) 09/04/17 06:15 Phosphorus 3.9 mg/dL (2.5-4.5) 09/04/17 06:15 Magnesium 1.9 mg/dL (1.7-2.2) 09/04/17 06:15 Total Bilirubin 0.8 mg/dL (0.2-1.3) 09/04/17 06:15 AST 119 U/L (17-59) H D 09/04/17 06:15 ALT 99 U/L (7-56) H 09/04/17 06:15 Alkaline Phosphatase 71 U/L (38-126) 09/04/17 06:15 Total Creatine Kinase 107 U/L (35-230) 09/02/17 08:00 Troponin I < 0.01 ng/mL 09/02/17 08:45 Total Protein 6.6 g/dL (5.8-8.3) 09/04/17 06:15 Albumin 3.9 g/dL (3.0-4.8) 09/04/17 06:15 Globulin 2.7 gm/dL 09/04/17 06:15 Albumin/Globulin Ratio 1.5 (1.1-1.8) 09/04/17 06:15 Urine Color Yellow (YELLOW) 09/02/17 13:35 Urine Appearance Clear (CLEAR) 09/02/17 13:35 Urine pH 7.0 (4.7-8.0) 09/02/17 13:35 Ur Specific [place] <= 1.005 (1.005-1.035) 09/02/17 13:35 Urine Protein Negative mg/dL (<30 mg/dL) 09/02/17 13:35 Urine Glucose (UA) Negative mg/dL (NEGATIVE) 09/02/17 13:35 Urine Ketones Negative mg/dL (NEGATIVE) 09/02/17 13:35 Urine Blood Negative (NEGATIVE) 09/02/17 13:35 Urine Nitrate Negative (NEGATIVE) 09/02/17 13:35 Urine Bilirubin Negative (NEGATIVE) 09/02/17 13:35 Urine Urobilinogen 0.2 E.U./dL (<1 E.U./dL) 09/02/17 13:35 Ur Leukocyte Esterase Negative Sanjay/uL (NEGATIVE) 09/02/17 13:35 Urine Opiates Screen Negative (NEGATIVE) 09/02/17 13:35 Urine Methadone Screen Negative (NEGATIVE) 09/02/17 13:35 Ur Barbiturates Screen Negative (NEGATIVE) 09/02/17 13:35 Ur Phencyclidine Scrn Negative (NEGATIVE) 09/02/17 13:35 Ur Amphetamines Screen Negative (NEGATIVE) 09/02/17 13:35 U Benzodiazepines Scrn Negative (NEGATIVE) 09/02/17 13:35 U Oth Cocaine Metabols Negative (NEGATIVE) 09/02/17 13:35 U Cannabinoids Screen Negative (NEGATIVE) 09/02/17 13:35 Alcohol, Quantitative 12 mg/dL (0-10) H 09/02/17 08:45 - Hospital Course Hospital Course: History of Present Illness: Patient is a 46 yo male PMHx paranoid schizophrenia, HTN, depression, and seizure presents for EtOH withdrawal. Patient reported he drank 1 gallon of Bacardi the day before and felt like he was going to withdraw. Patient stated he has been drinking as he has been depressed and feels like he is going to and go to hell. He denied any suicidal and homicidal ideations, and denied any auditiory/visual hallucinations. Patient reports he usually drinks 1 pint/day and smokes 2ppd. He denies any acute complaints of headache, dizziness, chest pain, palpitations, cough, abd pain, bowel/bladder complaints, pain/swelling in his legs bilaterally. He did admit to 4 episodes of nonbloody nonbilious emesis and he reports feeling short of breath when he gets anxious. Hospital Course: Patient was admitted to telemetry for alcohol withdrawal. Alcohol level was 12 on admission, UTOX was negative. He was started on Ativan Taper, banana bag, and monitored using CIWA protocol. Patient has leukocytosis on 12.3 on admission , UA was negative, CXR showed no active disease. Leukocytosis resolved. Patient was subsequently downgraded to Medical floors. He was doing well, denied any symptoms of alcohol withdrawal. Patient was with transaminitis. LFTs from previous admission reviewed, and it is trending down. Hepatitis panel was previously negative. Patient was also hypertensive during this admission. Dosage of Atenolol was increased to 25mg PO daily and Lisinopril was discontinue with improvement in BP readings. Patient was seen by social contact worker, and was provided information on AA and NA meetings in [place]. He was also provided information on mental health services in [facility]. Patient was educated on importance of sobriety and advised to follow up with outpatient services. Patient to follow up with PMD and Psych within 1 week. Discharge Medications: Atenolol 25mg PO daily Discharge Diagnosis: Alcohol withdrawal/Alcohol abuse Hypertension Discharge Exam - Additional Findings Additional findings: - Constitutional Appears: Non-toxic, No Acute Distress - Head Exam Head Exam: ATRAUMATIC, NORMAL INSPECTION, NORMOCEPHALIC - Eye Exam Eye Exam: EOMI, Normal appearance, PERRL. absent: Conjunctival injection, Scleral icterus Pupil Exam: NORMAL ACCOMODATION - ENT Exam ENT Exam: Mucous Membranes Moist - Neck Exam Neck exam: Positive for: Full Rom, Normal Inspection - Respiratory Exam Respiratory Exam: Wheezes, NORMAL BREATHING PATTERN. absent: Accessory Muscle Use, Rales, Rhonchi, Respiratory Distress - Cardiovascular Exam Cardiovascular Exam: REGULAR RHYTHM, RRR, +S1, +S2. absent: Systolic Murmur - GI/Abdominal Exam GI & Abdominal Exam: Normal Bowel Sounds, Soft. absent: Distended, Firm, Guarding, Rigid, Tenderness - Rectal Exam Rectal Exam: Deferred - Extremities Exam Extremities exam: Positive for: normal capillary refill, normal inspection, pedal pulses present - Neurological Exam Neurological exam: Alert, CN II-XII Intact, Oriented x3 - Psychiatric Exam Psychiatric exam: Depressed - Skin Skin Exam: Dry, Intact, Normal Color, Warm Discharge Plan - Discharge Medications Prescriptions: Atenolol [Tenormin] 25 mg PO DAILY #30 tab - Follow Up Plan Condition: GUARDED Disposition: HOME/ ROUTINE Instructions: Depression, High Blood Pressure in Adults, Quitting Smoking, Alcohol Abuse and Alcoholism (DC) Additional Instructions: 1. Patient is clear for discharge home 2. We increased Atenolol to 25mg PO daily, please discontinue Lisinopril 5mg PO daily 3. Please abstain from alcohol, we have provided you information about outpatient programs 4. Follow up with Psychiatry and PMD within 1 week Referrals: Kanwal Duque MD [Primary Care Provider] - <Selina Calero - Last Filed: 09/04/17 16:47> Provider - Provider Date of Admission: 09/02/17 11:22 Attending physician: Selina Calero MD Primary care physician: Kanwal Duque MD Hospital Course - Lab Results Lab Results: Most Recent Lab Values WBC 8.7 10^3/ul (4.5-11.0) 09/04/17 06:15 RBC 4.11 10^6/uL (3.5-6.1) 09/04/17 06:15 Hgb 13.5 g/dL (14.0-18.0) L 09/04/17 06:15 Hct 40.0 % (42.0-52.0) L 09/04/17 06:15 MCV 97.3 fl (80.0-105.0) 09/04/17 06:15 MCH 32.8 pg (25.0-35.0) 09/04/17 06:15 MCHC 33.8 g/dl (31.0-37.0) 09/04/17 06:15 RDW 13.9 % (11.5-14.5) 09/04/17 06:15 Plt Count 216 10^3/uL (120.0-450.0) 09/04/17 06:15 MPV 10.7 fl (7.0-11.0) 09/04/17 06:15 Gran % 66.1 % (50.0-68.0) 09/04/17 06:15 Lymph % (Auto) 17.1 % (22.0-35.0) L 09/04/17 06:15 [facility] % (Auto) 8.5 % (1.0-6.0) H 09/04/17 06:15 Eos % (Auto) 8.0 % (1.5-5.0) H 09/04/17 06:15 Baso % (Auto) 0.3 % (0.0-3.0) 09/04/17 06:15 Gran # 5.73 (1.4-6.5) 09/04/17 06:15 Lymph # (Auto) 1.5 (1.2-3.4) 09/04/17 06:15 [facility] # (Auto) 0.7 (0.1-0.6) H 09/04/17 06:15 Eos # (Auto) 0.7 (0.0-0.7) 09/04/17 06:15 Baso # (Auto) 0.03 K/mm3 (0.0-2.0) 09/04/17 06:15 PT 11.5 SECONDS (9.4-12.5) 09/02/17 08:45 INR 1.00 (0.93-1.08) 09/02/17 08:45 APTT 29.6 Seconds (25.1-36.5) 09/02/17 08:45 Sodium 138 mmol/L (132-148) 09/04/17 06:15 Potassium 3.8 mmol/L (3.6-5.0) 09/04/17 06:15 Chloride 103 mmol/L (98-107) 09/04/17 06:15 Carbon Dioxide 26 mmol/L (21-33) 09/04/17 06:15 Anion Gap 14 (10-20) 09/04/17 06:15 BUN 13 mg/dL (7-21) 09/04/17 06:15 Creatinine 0.8 mg/dl (0.8-1.5) 09/04/17 06:15 Est GFR ( Amer) > 60 09/04/17 06:15 Est GFR (Non-Af Amer) > 60 09/04/17 06:15 Random Glucose 98 mg/dL (70-110) 09/04/17 06:15 Calcium 9.0 mg/dL (8.4-10.5) 09/04/17 06:15 Phosphorus 3.9 mg/dL (2.5-4.5) 09/04/17 06:15 Magnesium 1.9 mg/dL (1.7-2.2) 09/04/17 06:15 Total Bilirubin 0.8 mg/dL (0.2-1.3) 09/04/17 06:15 AST 119 U/L (17-59) H D 09/04/17 06:15 ALT 99 U/L (7-56) H 09/04/17 06:15 Alkaline Phosphatase 71 U/L (38-126) 09/04/17 06:15 Total Creatine Kinase 107 U/L (35-230) 09/02/17 08:00 Troponin I < 0.01 ng/mL 09/02/17 08:45 Total Protein 6.6 g/dL (5.8-8.3) 09/04/17 06:15 Albumin 3.9 g/dL (3.0-4.8) 09/04/17 06:15 Globulin 2.7 gm/dL 09/04/17 06:15 Albumin/Globulin Ratio 1.5 (1.1-1.8) 09/04/17 06:15 Urine Color Yellow (YELLOW) 09/02/17 13:35 Urine Appearance Clear (CLEAR) 09/02/17 13:35 Urine pH 7.0 (4.7-8.0) 09/02/17 13:35 Ur Specific [place] <= 1.005 (1.005-1.035) 09/02/17 13:35 Urine Protein Negative mg/dL (<30 mg/dL) 09/02/17 13:35 Urine Glucose (UA) Negative mg/dL (NEGATIVE) 09/02/17 13:35 Urine Ketones Negative mg/dL (NEGATIVE) 09/02/17 13:35 Urine Blood Negative (NEGATIVE) 09/02/17 13:35 Urine Nitrate Negative (NEGATIVE) 09/02/17 13:35 Urine Bilirubin Negative (NEGATIVE) 09/02/17 13:35 Urine Urobilinogen 0.2 E.U./dL (<1 E.U./dL) 09/02/17 13:35 Ur Leukocyte Esterase Negative Sanjay/uL (NEGATIVE) 09/02/17 13:35 Urine Opiates Screen Negative (NEGATIVE) 09/02/17 13:35 Urine Methadone Screen Negative (NEGATIVE) 09/02/17 13:35 Ur Barbiturates Screen Negative (NEGATIVE) 09/02/17 13:35 Ur Phencyclidine Scrn Negative (NEGATIVE) 09/02/17 13:35 Ur Amphetamines Screen Negative (NEGATIVE) 09/02/17 13:35 U Benzodiazepines Scrn Negative (NEGATIVE) 09/02/17 13:35 U Oth Cocaine Metabols Negative (NEGATIVE) 09/02/17 13:35 U Cannabinoids Screen Negative (NEGATIVE) 09/02/17 13:35 Alcohol, Quantitative 12 mg/dL (0-10) H 09/02/17 08:45 Attending/Attestation - Attestation I have personally seen and examined this patient.: Yes I have fully participated in the care of the patient.: Yes I have reviewed all pertinent clinical information, including history, physical exam and plan: Yes Notes (Text): 09/04/17 16:42 Medical record note made by the resident after discussion with my direction and input after the patient was personally seen and examined by me. I have reviewed the chart and agree that the record accurately reflects by personal performance of the history, physical exam, data review, and medical decision-making, in the course for the patient. I have also personally directed the plan of care. 46 year old male with PMHx of paranoid schizophrenia, HTN, depression, was admitted with impending alcohol withdrawal. Patient is feeling better.Alcohol withdrawals are improved. Patient has elevated LFT which are better than his previous admission.The issue of ongoing alcohol abuse was discussed in detail with the patient. Management plan was discussed in detail with patient. Education was provided.
== END 2017-09-04 13:31 | disposition home or self-care (01) | DRG 897 ==
LOC: ED 08:25 → ERH 11:22 → 2RNO 13:06 → 5RNO 09-03 13:42
PROVIDERS: ADMIT Internal Medicine; ATTEND Internal Medicine
DX: F10.239 Alcohol dependence with withdrawal, unspecified (principal); F20.0 Paranoid schizophrenia; Y90.0 Blood alcohol level of less than 20 mg/100 ml; I10 Essential (primary) hypertension; R56.9 Unspecified convulsions; R79.89 Other specified abnormal findings of blood chemistry; F17.210 Nicotine dependence, cigarettes, uncomplicated; Z83.3 Family history of diabetes mellitus; Z82.0 Family history of epilepsy and other diseases of the nervous system

== ENCOUNTER 2017-11-01 13:40 | Emergency (ER) | payer OTHER ==
[2017-11-01 13:41] VITALS: BMI 34.9
[2017-11-01 14:12] VITALS: RESP 18; O2SAT 99
[2017-11-01] MEDS: Albuterol-Ipratrop 3 mg / 0.5 (3 ml) UD IH SCH ×3 (14:12→14:35)
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
[2017-11-01 16:22] LABS: PH,URINE 6.5 (4.7-8.0); URINE BILIRUBIN NEGATIVE (NEGATIVE); URINE BLOOD NEGATIVE (NEGATIVE); URINE GLUCOSE (UA) NEGATIVE (NEGATIVE); URINE LEUKOCYTE ESTERASE TRACE Leu/uL (NEGATIVE); URINE PROTEIN TRACE mg/dL (<30 mg/dL); URINE UROBILINOGEN 0.2 E.U./dL (<1 E.U./dL)
[2017-11-01 16:24] LABS: URINE APPEARANCE SLIGHT-CLOUDY (CLEAR); URINE COLOR YELLOW (YELLOW)
[2017-11-01 16:31] LABS: URINE RBC 0 - 2 /hpf (0-2)
[2017-11-01 16:32] LABS: URINE BACTERIA FEW (NEG)
[2017-11-01 16:35] LABS: BARBITURATES, UR NEGATIVE (NEGATIVE); BENZODIAZEPINES, UR NEGATIVE (NEGATIVE); OPIATES, UR NEGATIVE (NEGATIVE); PHENCYCLIDINE, UR NEGATIVE (NEGATIVE)
[2017-11-01 17:35] VITALS: TEMP 98.6
[2017-11-01 17:36] VITALS: BP 104/68; PULSE 78
--- NOTE | 2017-11-01 17:41 | RAD ---
HISTORY: ETOH intox, coughing COMPARISON: 09/02/2017 and 05/24/2017. FINDINGS: LUNGS: No active pulmonary disease. PLEURA: No significant pleural effusion identified, no pneumothorax apparent. CARDIOVASCULAR: Normal. OSSEOUS STRUCTURES: No significant abnormalities. VISUALIZED UPPER ABDOMEN: Normal. OTHER FINDINGS: Foreign body overlies the lower thoracic spine unchanged. This was documented to be within the soft tissues of the on a prior chest x-ray as well. . IMPRESSION: No active disease. No significant interval change compared to the prior examination(s).
== END 2017-11-01 17:35 | disposition home or self-care (01) ==
LOC: ED 13:40
DX: F10.129 Alcohol abuse with intoxication, unspecified (principal); Y90.8 Blood alcohol level of 240 mg/100 ml or more; J45.909 Unspecified asthma, uncomplicated; I10 Essential (primary) hypertension; F17.210 Nicotine dependence, cigarettes, uncomplicated

== ENCOUNTER 2018-01-08 16:40 | Inpatient (IN) | payer OTHER ==
[2018-01-06 19:03] VITALS: BMI 36.6
--- NOTE | 2018-01-08 19:18 | PCM.BM ---
<Juan Cadet - Last Filed: 01/08/18 19:15> Treatment Plan Problems - Problems identified on initial assessmt HOPLESSNESS/HELPLESSNESS Date Initiated: 01/08/18 Time Initiated: 19:16 Assessment reference: HP, NA Status: Active INNEFFECTIVE COPING Date Initiated: 01/08/18 Time Initiated: 19:17 Assessment reference: HP, NA Status: Active MEDS NONCOMPLIANCE Date Initiated: 01/08/18 Time Initiated: 19:18 Assessment reference: HP, NA Status: Active Treatment assets and liabiliti Patient Assests: adapts well, cooperative, educated, insightful, motivated, ADL independent, cognitively intact Patient Liabilities: relationship conflicts, medical problems - Milieu Protocol Maintain good personal hygiene: daily Encourage regular showers, daily Remind patient to perform daily oral care, daily Assist patient to perform ADL's Maintain personal safety: daily Educate patient to report safety concerns to staff, daily Monitor environment for contraband/sharps Medication safety: Monitor for expected outcome, potential side effects: daily, Assess barriers to learning: daily, Assess readiness for medication education: daily Discharge/Continuing Care - Education Needs Education Needs: Patient Medication, Patient Diagnosis/Disease Process, Patient Coping Skills, Patient Anger Management skills, Patient Placement options, Patient Community resources, Patient Activities of Daily Living, Patient Nutrition, Patient Uses of Medical Equipment, Patient Personal Hygiene/Grooming , Patient Aftercare Safety Plan - Discharge Discharge Criteria: Tolerates medication w/o severe side effects, Free of Suicidal thoughts, Free of Homicidal thoughts, Free of paranoid thoughts, Free of agitation Discharge to:: Home <Lexis Arreaga - Last Filed: 01/09/18 11:25> - Diagnosis (1) Depressed Status: Acute Interventions: 01/09/18 11:25 c/w Librium 25 mg po QID for alcohol withdrawal * c/w zoloft 75 mg po daily for depression and anxiety * c/w trazodone 100 mg po hs for depression and off-label for insomnia * c/w geodon 40 mg AMHS for history of disorganization, paranoia and delusions * Consider naltrexone to help with alcohol dependency if patient is motivated to (2) Alcohol use disorder Status: Acute Interventions: 01/09/18 11:25 c/w Librium 25 mg po QID for alcohol withdrawal * c/w zoloft 75 mg po daily for depression and anxiety * c/w trazodone 100 mg po hs for depression and off-label for insomnia * c/w geodon 40 mg AMHS for history of disorganization, paranoia and delusions * Consider naltrexone to help with alcohol dependency if patient is motivated to (3) Alcohol withdrawal Status: Acute Interventions: c/w Librium 25 mg po QID for alcohol withdrawal * c/w zoloft 75 mg po daily for depression and anxiety * c/w trazodone 100 mg po hs for depression and off-label for insomnia * c/w geodon 40 mg AMHS for history of disorganization, paranoia and delusions * Consider naltrexone to help with alcohol dependency if patient is motivated to 01/09/18 11:25 (4) Paranoid schizophrenia Status: Chronic Interventions: c/w Librium 25 mg po QID for alcohol withdrawal * c/w zoloft 75 mg po daily for depression and anxiety * c/w trazodone 100 mg po hs for depression and off-label for insomnia * c/w geodon 40 mg AMHS for history of disorganization, paranoia and delusions * Consider naltrexone to help with alcohol dependency if patient is motivated to 01/09/18 11:26 <Frances Vizcaino Y - Last Filed: 01/11/18 16:17> Family Contact Family involvement: Family/SO is involved Family contact: Patient agrees to contact Family contact name: Aarti Powell, partner Family contacted how many times per week?: 2 - Outside Agency Agency 1 Care involvment: Information-sharing Agency contact name: Dr. Dawkins
[2018-01-09 08:32] LABS: GLUCOSE,FASTING 98 mg/dL (65-110); HDL CHOLESTEROL 72 mg/dL (29-60)
[2018-01-09 08:43] LABS: LDL CHOLESTEROL 53 mg/dL (0-129)
[2018-01-09 08:48] LABS: FREE T4 0.93 ng/dL (0.78-2.19)
[2018-01-09] MEDS: Multivitamin With Minerals Tab PO SCH (09:42)
[2018-01-09] MEDS: Pantoprazole 40 mg EC Tab PO SCH (09:44)
[2018-01-09] MEDS ORDERED: Albuterol-Ipratrop 3 mg / 0.5 (3 ml) UD IH PRN (10:00)
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
[2018-01-09] MEDS ORDERED: Magnesium Hydroxide Susp 30 ml UD PO PRN (13:17)
[2018-01-09] MEDS ORDERED: Alum-Mag Hydrox-Simethicone Susp (30 mL) PO PRN (13:17)
[2018-01-10] MEDS: Pantoprazole 40 mg EC Tab PO SCH (06:54)
[2018-01-10 07:32] VITALS: RESP 20
[2018-01-10] MEDS: Multivitamin With Minerals Tab PO SCH (08:30)
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
[2018-01-10] MEDS: Bacitracin 500 Units/gm Oint Foilpak UD TOP SCH ×3 (13:04→17:24)
[2018-01-11] MEDS: Bacitracin 500 Units/gm Oint Foilpak UD TOP SCH ×3 (09:18→18:13)
[2018-01-11] MEDS: Multivitamin With Minerals Tab PO SCH (09:19)
[2018-01-11] MEDS: Pantoprazole 40 mg EC Tab PO SCH (09:20)
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
[2018-01-12] MEDS: Pantoprazole 40 mg EC Tab PO SCH (06:45)
[2018-01-12] MEDS: Multivitamin With Minerals Tab PO SCH (09:22)
[2018-01-12] MEDS: Bacitracin 500 Units/gm Oint Foilpak UD TOP SCH ×3 (09:22→17:19)
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
[2018-01-13 07:05] VITALS: BP 104/61; PULSE 60; TEMP 98.1
[2018-01-13] MEDS: Multivitamin With Minerals Tab PO SCH (08:03)
[2018-01-13] MEDS: Pantoprazole 40 mg EC Tab PO SCH (08:03)
[2018-01-13] MEDS: Bacitracin 500 Units/gm Oint Foilpak UD TOP SCH (08:07)
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
== END 2018-01-13 10:32 | disposition left against medical advice (07) | DRG 885 ==
LOC: PSYC 16:40
PROVIDERS: ADMIT Psychiatry & Neurology Psychiatry; ATTEND Psychiatry & Neurology Psychiatry
DX: F22 Delusional disorders (principal); F10.239 Alcohol dependence with withdrawal, unspecified; F17.290 Nicotine dependence, other tobacco product, uncomplicated; F19.959 Other psychoactive substance use, unspecified with psychoactive substance-induced psychotic disorder, unspecified; G47.00 Insomnia, unspecified; F32.89 Other specified depressive episodes; I10 Essential (primary) hypertension; J44.9 Chronic obstructive pulmonary disease, unspecified; Y04.0XXA Assault by unarmed brawl or fight, initial encounter; Z79.899 Other long term (current) drug therapy; Z82.49 Family history of ischemic heart disease and other diseases of the circulatory system; Z83.3 Family history of diabetes mellitus; Z86.73 Personal history of transient ischemic attack (TIA), and cerebral infarction without residual deficits; Z91.19 Patient's noncompliance with other medical treatment and regimen